=== PATIENT | male | born 1950 | race Caucasian/White ===

== ENCOUNTER 2018-08-09 14:40 | Emergency (ER) | payer MEDICARE, OTHER, SELFPAY ==
[2018-08-09 14:46] VITALS: BP 153/85; PULSE 72; RESP 16; TEMP 35.9; O2SAT 96
--- NOTE | 2018-08-09 15:02 | ED.ANXIETY ---
HPI - Anxiety <GIULIA Javier - Last Filed: 08/09/18 22:09> General Chief Complaint: Anxiety Stated Complaint: states super anxious Time Seen by Provider: 08/09/18 15:02 Source: patient Mode of arrival: ambulatory Limitations: no limitations History of Present Illness HPI narrative: 68-year-old male with history of anxiety and PTSD here for complaint of having symptoms consistent with panic attack earlier today. He states that at 1:00 this afternoon he started feeling like he was becoming anxious and as time went on he started feeling more anxious and then started having some chest pain. He states that he take a couple of Ativan 1 mg tablets which did not seem to help. He then came to the emergency room. He states that since the timeframe that it started chest pain has resolved. Any feels more relaxed. He denies any shortness of breath. No fevers no chills. He denies any increased stress. He does state that he has been taking his medications as prescribed. MD complaint: anxiety Related Data Home Medications Medication Instructions Recorded Confirmed CPAP: CPAP/PAP Full Face Mask 1 ea MISCELLANEOUS QPM #0 04/14/16 08/09/18 epinephrine 1 dose IM PRN PRN #0 04/14/16 08/09/18 armodafinil 100 mg PO PRN PRN 08/09/18 08/09/18 armodafinil 200 mg PO DAILY 08/09/18 08/09/18 atorvastatin 10 mg PO BEDTIME 08/09/18 08/09/18 buspirone 10 mg PO TID 08/09/18 08/09/18 carboxymethylcellulose sodium 1 drp OPHTHALMIC (EYE) 5XD 08/09/18 08/09/18 cholecalciferol (vitamin D3) 2,000 unit PO DAILY 08/09/18 08/09/18 [Vitamin D3] flunisolide 2 spray INTRANASAL BID 08/09/18 08/09/18 fluoride (sodium) [PreviDent] 1 applic PO BEDTIME 08/09/18 08/09/18 fluoxetine 60 mg PO BEDTIME 08/09/18 08/09/18 lisinopril 10 mg PO DAILY 08/09/18 08/09/18 lorazepam 1 mg PO PRN PRN 08/09/18 08/09/18 meloxicam 15 mg PO DAILY 08/09/18 08/09/18 methocarbamol 750 mg PO BEDTIME 08/09/18 08/09/18 metoprolol tartrate 12.5 mg PO BID 08/09/18 08/09/18 omeprazole 20 mg PO BID 08/09/18 08/09/18 pramipexole 2.5 mg PO BEDTIME 08/09/18 08/09/18 trazodone 50 mg PO BEDTIME 08/09/18 08/09/18 Allergies Allergy/AdvReac Type Severity Reaction Status Date / Time adhesive [ADHESIVE] Allergy Unknown Unverified 04/26/18 16:43 atorvastatin [ATORVASTATIN] Allergy Unknown Unverified 04/26/18 16:43 doxycycline [DOXYCYCLINE] Allergy Unknown Unverified 04/26/18 16:43 gluten [GLUTEN] Allergy Unknown Unverified 04/26/18 16:43 guaifenesin [GUAIFENESIN] Allergy Unknown Unverified 04/26/18 16:43 lactose [LACTOSE] Allergy Unknown Unverified 04/26/18 16:43 methylphenidate Allergy Unknown Unverified 04/26/18 16:43 [METHYLPHENIDATE] Penicillins [PENICILLINS] Allergy Unknown Unverified 04/26/18 16:43 pneumococcal vaccine Allergy Unknown Unverified 04/26/18 16:43 [From PNEUMOVAX 23] prazosin [PRAZOSIN] Allergy Unknown Unverified 04/26/18 16:43 pseudoephedrine Allergy Unknown Unverified 04/26/18 16:43 [PSEUDOEPHEDRINE] soy [SOY] Allergy Unknown Unverified 04/26/18 16:43 venom-honey bee Allergy Unknown Unverified 04/26/18 16:43 [BEE VENOM (HONEY BEE)] CYLERT Allergy Unknown Uncoded 04/26/18 16:43 Lettuce AdvReac Severe Anaphylactic Uncoded 04/26/18 16:43 Shock Review of Systems <GIULIA Javier - Last Filed: 08/09/18 22:09> Constitutional Denies chills, Denies fatigue, Denies fever(s), Denies lethargy and Denies weakness Eyes Denies change in vision, Denies eye discharge, Denies irritation and Denies loss of vision ENT Ears, Nose, Mouth, and Throat: Denies change in voice, Denies neck pain and Denies sore throat Cardiovascular Reports chest pain, Denies dyspnea and Denies dyspnea on exertion Respiratory Denies cough, Denies dyspnea, Denies dyspnea on exertion and Denies wheezing Gastrointestinal Gastrointestinal: Denies abdominal pain, Denies change in bowel habits, Denies diarrhea, Denies nausea and Denies vomiting Genitourinary Denies hematuria, Denies flank pain, Denies urinary incontinence and Denies urinary urgency Musculoskeletal Denies neck pain Integumentary/Breasts Denies pruritus, Denies erythema, Denies rash and Denies wounds Neurologic Denies loss of vision and Denies weakness Psychiatric Reports anxiety Endocrine Denies fatigue and Denies flushing Hematologic/Lymphatic Denies easy bruising Allergic/Immunologic Denies wheezing Exam <GIULIA Javier - Last Filed: 08/09/18 22:09> Initial Vital Signs Initial Vital Signs: Vital Signs Temperature 96.7 F L 08/09/18 14:46 Pulse Rate 72 08/09/18 14:46 Respiratory Rate 16 08/09/18 14:46 Blood Pressure 153/85 H 08/09/18 14:46 Pulse Oximetry 96 08/09/18 14:46 Const General: cooperative and well developed Nutritional Appearance: well nourished Orientation: alert, awake, oriented x3 and not confused [facility] Mouth: oral mucosae normal and moist mucous membranes Throat: posterior oropharynx normal Resp Effort & Inspection: normal respiratory effort, able to speak in complete sentences, no respiratory distress and no use of accessory muscles Auscultation: clear to auscultation bilaterally, no rales, no rhonchi and no wheezes Cardio Rate: regular rate Rhythm: regular rhythm Heart Sounds: no click, no gallops, no murmurs and no rubs Pulses: normal peripheral pulses Skin General: no rashes or lesions noted, No jaundice and No petechiae Neuro General: alert, oriented x3, gait normal and no focal motor deficits Speech: speech normal <Vanessa Christina MD - Last Filed: 08/11/18 15:46> Initial Vital Signs Initial Vital Signs: Vital Signs Temperature 96.7 F L 08/09/18 14:46 Pulse Rate 72 08/09/18 14:46 Respiratory Rate 16 08/09/18 14:46 Blood Pressure 153/85 H 08/09/18 14:46 Pulse Oximetry 96 08/09/18 14:46 Course <GIULIA Javier - Last Filed: 08/09/18 22:09> Orders Ordered: ED Orders 08/09/18 16:32 XR chest 1V Stat 08/09/18 16:45 Complete Blood Count AUTO DIFF Stat Comprehensive Metabolic Panel Stat Troponin & CK Cardiac Panel Stat 08/09/18 16:50 EKG-12 Lead Stat 08/09/18 17:17 CT chest w con Stat 08/09/18 18:49 Troponin I Stat Vital Signs - 8 hr 08/09/18 14:46 08/09/18 17:30 08/09/18 18:49 Temperature 96.7 F L Pulse Rate 72 63 67 Respiratory Rate 16 13 19 Blood Pressure 153/85 H Blood Pressure [Right Arm] 129/65 141/81 H Pulse Oximetry 96 98 97 08/09/18 19:46 Temperature Pulse Rate 73 Respiratory Rate 16 Blood Pressure 120/54 L Blood Pressure [Right Arm] Pulse Oximetry 95 <Vanessa Christina MD - Last Filed: 08/11/18 15:46> Orders Ordered: ED Orders 08/09/18 16:32 XR chest 1V Stat 08/09/18 16:45 Complete Blood Count AUTO DIFF Stat Comprehensive Metabolic Panel Stat Troponin & CK Cardiac Panel Stat 08/09/18 16:50 EKG-12 Lead Stat 08/09/18 17:17 CT chest w con Stat 08/09/18 18:49 Troponin I Stat Vital Signs - 8 hr 08/09/18 14:46 08/09/18 17:30 08/09/18 18:49 Temperature 96.7 F L Pulse Rate 72 63 67 Respiratory Rate 16 13 19 Blood Pressure 153/85 H Blood Pressure [Right Arm] 129/65 141/81 H Pulse Oximetry 96 98 97 08/09/18 19:46 Temperature Pulse Rate 73 Respiratory Rate 16 Blood Pressure 120/54 L Blood Pressure [Right Arm] Pulse Oximetry 95 MDM - Anxiety <GIULIA Javier - Last Filed: 08/09/18 22:09> Lab Data Result diagrams: 08/09/18 16:45 08/09/18 16:45 Lab Results 08/09/18 08/09/18 08/09/18 Range/Units 16:45 16:45 18:49 WBC 4.6 (4.5-11.0) X10^3/uL RBC 4.54 (4.5-5.9) X10^6/uL Hgb 13.9 (13.5-17.5) g/dL Hct 41.8 (41-53) % MCV 91.9 (80-100) fL MCH 30.6 (26-34) PG MCHC 33.3 (30-36) % RDW 13.6 (11.6-14.8) % Plt Count 149 L (150-400) X10^3/uL Neut % (Auto) 60.3 (50-75) % Lymph % (Auto) 25.5 (25-40) % Irion % (Auto) 10.7 (3-14) % Eos % (Auto) 2.6 (2-4) % Baso % (Auto) 0.9 (0-2) % Neut # (Auto) 2800 (4345-9476) /uL Sodium 142 (137-145) mmol/L Potassium 4.3 (3.4-5.1) mmol/L Chloride 102 (98-107) mmol/L Carbon Dioxide 29 (22-32) mmol/L BUN 24 H (9-20) mg/dL Creatinine 0.90 (0.66-1.25) mg/dL Estimated GFR > 60.0 (>60) mL/min BUN/Creatinine Ratio 26.7 H (6-22) Glucose 91 (80-110) mg/dL Calcium 9.1 (8.4-10.2) mg/dL Total Bilirubin 0.2 (0.2-1.3) mg/dL AST 26 (17-59) IU/L ALT 33 (21-72) IU/L Alkaline Phosphatase 86 (38-126) U/L Total Creatine Kinase 136 (55-170) U/L CK-MB (CK-2) 2.61 H (<2.37) ng/mL CK-MB (CK-2) Rel Index 1.9 (1.5-5.0) % Troponin I < 0.012 0.018 (0.01-0.034) ng/mL Total Protein 7.3 (6.3-8.2) g/dL Albumin 4.4 (3.5-5.0) g/dL Globulin 2.9 (1.7-4.1) g/dL Albumin/Globulin Ratio 1.5 (1.0-2.8) Imaging Data Chest x-ray: Radiologist's impression: [address] [id number] XRay Report Signed Patient: Sandeep Hopson MR#: [id number] : 1950 Acct:[id number] Age/Sex: 68 / M Date of Service: 08/09/18 Loc: ED Accession Number: [id number] Procedure: XR chest 1V Ordering Provider: Santos Khalil PROCEDURE: XR CHEST 1V INDICATIONS: Chest pain TECHNIQUE: One view of the chest was acquired. COMPARISON: [facility], CHEST 1 VIEW, 10/27/2017, 9:39. FINDINGS: Surgical changes and devices: None. Lungs and pleura: There appears to be a new density within being superior right paramediastinal soft tissues. No lobar consolidation, effusion, or pneumothorax is evident. Mediastinum: Mediastinal contours appear normal. Heart size is normal. Bones and chest wall: No suspicious bony lesions. Overlying soft tissues appear unremarkable. IMPRESSION: Superior right paramediastinal soft tissue density is new since the prior exam and may represent vascular structures. However, pulmonary nodule/mass is difficult to exclude. A contrast enhanced CT of the chest is recommended for further evaluation. Dictated by: Kt Lynn M.D. on 08/09/2018 at 15:59 Approved by: Kt Lynn M.D. on 08/09/2018 at 16:02 CT scan - chest: Radiologist's impression: [address] [id number] [address] Scan Report Signed Patient: Sandeep Hopson MR#: [id number] : 1950 Acct:[id number] Age/Sex: 68 / M Date of Service: 08/09/18 Loc: ED Accession Number: [id number] Procedure: CT chest w con Ordering Provider: Santos Khalil PROCEDURE: CT CHEST W CON INDICATIONS: Possible mass seen on x-ray to right mediastinum TECHNIQUE: After the administration of intravenous contrast, 5 mm thick sections acquired from the pulmonary apices to the posterior costophrenic angles. 7 mm thick coronal and sagittal MIP reformats were acquired. For radiation dose reduction, the following was used: automated exposure control, adjustment of mA and/or kV according to patient size. COMPARISON: [facility], , CHEST 1 VIEW, 10/28/2014, 18:19. [facility], CHEST 1 VIEW, 01/18/2017, 17:29. [facility], CR, CHEST 1 VIEW, 10/27/2017, 9:39. [facility], , XR CHEST 1V, 08/09/2018, 17:05. FINDINGS: Image quality: Excellent. Lungs and pleura: No acute consolidation. No pulmonary nodule identified. The renographic appearance probably explained by tortuous brachiocephalic vessels. No pleural effusions or pneumothorax. Central and peripheral airways are patent and normal in caliber. Mediastinum: Heart size is normal. No pericardial effusion. No mediastinal or hilar adenopathy by size criteria. Thoracic aorta and central pulmonary arteries are normal in size. Esophagus is normal in caliber. No hiatal hernia. Bones and chest wall: No suspicious bony lesions. No vertebral body compression fractures. No axillary or supraclavicular adenopathy by size criteria. Thyroid gland negative. Abdomen: Left renal cyst incidentally noted IMPRESSION: No acute consolidation. No pulmonary nodule. Radiographic right paramediastinal opacity from prior study dated earlier same day likely accounted for tortuous brachiocephalic vessels Dictated by: Yariel Dubois M.D. on 08/09/2018 at 17:49 Approved by: Yariel Dubois M.D. on 08/09/2018 at 17:55 ECG Data Interpretation: EKG shows normal sinus rhythm with no ST elevation or depression. No ectopy. Ventricular rate is 67. Pr interval of 207. QRS duration 90. QTC of 439. MDM Narrative Medical decision making narrative: Chest x-ray was obtained and showed says it area that was questionable whether a pulmonary nodule or mass was present so CT of the chest was obtained and shows that it was a serpiginous vascularization no acute findings were seen in CT or on chest x-ray. EKG shows sinus rhythm with no ST elevation or depression. CBC and Chem panel were obtained were unremarkable. Cardiac enzymes were obtained and were negative. Patient has been relaxed and no chest pain while in the emergency room. Signs and symptoms present as a anxiety attack. He is encouraged to use his currently prescribed medications as directed. Follow up with primary care provider. Return emergency room for any worsening symptoms. <Vanessa Christina MD - Last Filed: 08/11/18 15:46> Lab Data Lab Results 08/09/18 08/09/18 08/09/18 Range/Units 16:45 16:45 18:49 WBC 4.6 (4.5-11.0) X10^3/uL RBC 4.54 (4.5-5.9) X10^6/uL Hgb 13.9 (13.5-17.5) g/dL Hct 41.8 (41-53) % MCV 91.9 (80-100) fL MCH 30.6 (26-34) PG MCHC 33.3 (30-36) % RDW 13.6 (11.6-14.8) % Plt Count 149 L (150-400) X10^3/uL Neut % (Auto) 60.3 (50-75) % Lymph % (Auto) 25.5 (25-40) % Irion % (Auto) 10.7 (3-14) % Eos % (Auto) 2.6 (2-4) % Baso % (Auto) 0.9 (0-2) % Neut # (Auto) 2800 (0691-0671) /uL Sodium 142 (137-145) mmol/L Potassium 4.3 (3.4-5.1) mmol/L Chloride 102 (98-107) mmol/L Carbon Dioxide 29 (22-32) mmol/L BUN 24 H (9-20) mg/dL Creatinine 0.90 (0.66-1.25) mg/dL Estimated GFR > 60.0 (>60) mL/min BUN/Creatinine Ratio 26.7 H (6-22) Glucose 91 (80-110) mg/dL Calcium 9.1 (8.4-10.2) mg/dL Total Bilirubin 0.2 (0.2-1.3) mg/dL AST 26 (17-59) IU/L ALT 33 (21-72) IU/L Alkaline Phosphatase 86 (38-126) U/L Total Creatine Kinase 136 (55-170) U/L CK-MB (CK-2) 2.61 H (<2.37) ng/mL CK-MB (CK-2) Rel Index 1.9 (1.5-5.0) % Troponin I < 0.012 0.018 (0.01-0.034) ng/mL Total Protein 7.3 (6.3-8.2) g/dL Albumin 4.4 (3.5-5.0) g/dL Globulin 2.9 (1.7-4.1) g/dL Albumin/Globulin Ratio 1.5 (1.0-2.8) Discharge Plan Departure Patient Disposition: Home Clinical Impression: Anxiety Discharge Date/Time: 08/09/18 19:47 Interventions: ED Discharge Assessment Last Done: 08/09/18 19:46 Instructions: DI for Anxiety -- Adult Activity Restrictions/Additional Instructions: Laboratory results and imaging today were unremarkable. EKG was normal. Signs and symptoms presents as anxiety attack. Use currently prescribed medications as directed. Use relaxation techniques to help with symptoms. Follow up with primary care provider. For any worsening symptoms return to the emergency room. Prescriptions: No Action epinephrine 0.3 MG/0.3 ML auto-injector 1 dose IM PRN PRN (Reason: Allergic Reaction) Qty: 0 RF: 0 CPAP: CPAP/PAP Full Face Mask 1 ea miscellaneous QPM Qty: 0 RF: 0 atorvastatin 10 mg tablet 10 mg PO BEDTIME RF: 0 meloxicam 15 mg tablet 15 mg PO DAILY RF: 0 methocarbamol 750 mg tablet 750 mg PO BEDTIME RF: 0 lisinopril 10 mg tablet 10 mg PO DAILY RF: 0 omeprazole 20 mg capsule,delayed release(DR/EC) 20 mg PO BID RF: 0 lorazepam 1 mg Tablet 1 mg PO PRN PRN (Reason: Anxiety) RF: 0 pramipexole 2.25 mg Tablet Extended Release 24 Hr 2.5 mg PO BEDTIME RF: 0 buspirone 10 mg Tablet 10 mg PO TID RF: 0 armodafinil 200 mg tablet 200 mg PO DAILY RF: 0 armodafinil 200 mg Tablet 100 mg PO PRN PRN (Reason: naroclepsy/cataplexy) RF: 0 flunisolide 25 mcg (0.025 %) [place],Non-Aerosol 2 spray INTRANASAL BID RF: 0 carboxymethylcellulose sodium 0.5 % [place] 1 drp ophthalmic (eye) 5XD RF: 0 trazodone 50 mg Tablet 50 mg PO BEDTIME RF: 0 fluoride (sodium) [PreviDent] 1.1 % Gel 1 applic PO BEDTIME RF: 0 metoprolol tartrate 25 mg Tablet 12.5 mg PO BID RF: 0 cholecalciferol (vitamin D3) [Vitamin D3] 2,000 unit Capsule 2,000 unit PO DAILY RF: 0 fluoxetine 60 mg Tablet 60 mg PO BEDTIME RF: 0 Referrals: Sandeep Coronado MD [Primary Care Provider] -
--- NOTE | 2018-08-09 15:46 | PC.NURSE ---
Pt states filling out paperwork for [facility], when he states starting shaking and feeling chest pressure, center chest. Had taken 2 doses of 1mg ativan about an hour apart. States no relief of pressure at this time.
--- NOTE | 2018-08-09 16:32 | DI.RAD.S_ITS ---
PROCEDURE: XR CHEST 1V INDICATIONS: Chest pain TECHNIQUE: One view of the chest was acquired. COMPARISON: [facility], , CHEST 1 VIEW, 10/27/2017, 9:39. FINDINGS: Surgical changes and devices: None. Lungs and pleura: There appears to be a new density within being superior right paramediastinal soft tissues. No lobar consolidation, effusion, or pneumothorax is evident. Mediastinum: Mediastinal contours appear normal. Heart size is normal. Bones and chest wall: No suspicious bony lesions. Overlying soft tissues appear unremarkable. IMPRESSION: Superior right paramediastinal soft tissue density is new since the prior exam and may represent vascular structures. However, pulmonary nodule/mass is difficult to exclude. A contrast enhanced CT of the chest is recommended for further evaluation. Dictated by: Kt Lynn M.D. on 08/09/2018 at 15:59 Approved by: Kt Lynn M.D. on 08/09/2018 at 16:02
[2018-08-09 16:54] LABS: Add Manual Diff / Slide Review NO; Basophils Percent Auto 0.9 % (0-2); Eosinophils Percent Auto 2.6 % (2-4); Hematocrit 41.8 % (41-53); Hemoglobin 13.9 g/dL (13.5-17.5); Lymphocytes Percent Auto 25.5 % (25-40); Mean Corpuscular HGB Conc 33.3 % (30-36); Mean Corpuscular Hemoglobin 30.6 PG (26-34); Mean Corpuscular Volume 91.9 fL (80-100); Monocytes Percent Auto 10.7 % (3-14); Neutrophils Absolute Auto 2800 /uL (1500-7000); Neutrophils Percent Auto 60.3 % (50-75); Platelet Count 149 X10^3/uL (150-400); Red Blood Cell Count 4.54 X10^6/uL (4.5-5.9); Red Cell Distribution Width 13.6 % (11.6-14.8); White Blood Cell Count 4.6 X10^3/uL (4.5-11.0)
[2018-08-09 17:10] LABS: Alanine Aminotransferase 33 IU/L (21-72); Albumin 4.4 g/dL (3.5-5.0); Albumin Globulin Ratio 1.5 (1.0-2.8); Alkaline Phosphatase 86 U/L (38-126); Aspartate Aminotransferase 26 IU/L (17-59); BUN Creatinine Ratio 26.7 (6-22); Bilirubin Total 0.2 mg/dL (0.2-1.3); Blood Urea Nitrogen 24 mg/dL (9-20); Calcium 9.1 mg/dL (8.4-10.2); Carbon Dioxide 29 mmol/L (22-32); Chloride 102 mmol/L (98-107); Creatine Kinase 136 U/L (55-170); Estimated Glomerular Filt Rate > 60.0 mL/min (>60); Globulin 2.9 g/dL (1.7-4.1); Glucose 91 mg/dL (80-110); HEMOLYSIS < 15 (0-50); Potassium 4.3 mmol/L (3.4-5.1); Sodium 142 mmol/L (137-145); Total Protein 7.3 g/dL (6.3-8.2)
--- NOTE | 2018-08-09 17:17 | DI.CT.S_ITS ---
PROCEDURE: CT CHEST W CON INDICATIONS: Possible mass seen on x-ray to right mediastinum TECHNIQUE: After the administration of intravenous contrast, 5 mm thick sections acquired from the pulmonary apices to the posterior costophrenic angles. 7 mm thick coronal and sagittal MIP reformats were acquired. For radiation dose reduction, the following was used: automated exposure control, adjustment of mA and/or kV according to patient size. COMPARISON: [facility], , CHEST 1 VIEW, 10/28/2014, 18:19. [facility], CHEST 1 VIEW, 01/18/2017, 17:29. [facility], , CHEST 1 VIEW, 10/27/2017, 9:39. [facility], , XR CHEST 1V, 08/09/2018, 17:05. FINDINGS: Image quality: Excellent. Lungs and pleura: No acute consolidation. No pulmonary nodule identified. The renographic appearance probably explained by tortuous brachiocephalic vessels. No pleural effusions or pneumothorax. Central and peripheral airways are patent and normal in caliber. Mediastinum: Heart size is normal. No pericardial effusion. No mediastinal or hilar adenopathy by size criteria. Thoracic aorta and central pulmonary arteries are normal in size. Esophagus is normal in caliber. No hiatal hernia. Bones and chest wall: No suspicious bony lesions. No vertebral body compression fractures. No axillary or supraclavicular adenopathy by size criteria. Thyroid gland negative. Abdomen: Left renal cyst incidentally noted IMPRESSION: No acute consolidation. No pulmonary nodule. Radiographic right paramediastinal opacity from prior study dated earlier same day likely accounted for tortuous brachiocephalic vessels Dictated by: Yariel Dubois M.D. on 08/09/2018 at 17:49 Approved by: Yariel Dubois M.D. on 08/09/2018 at 17:55
[2018-08-09 17:24] LABS: Troponin I < 0.012 ng/mL (0.01-0.034)
[2018-08-09 17:30] VITALS: BP 129/65; PULSE 63; RESP 13; O2SAT 98
[2018-08-09 18:07] LABS: CKMB % Relative Index 1.9 % (1.5-5.0); Creatine Kinase MB 2.61 ng/mL (<2.37)
[2018-08-09 18:49] VITALS: BP 141/81; PULSE 67; RESP 19; O2SAT 97
--- NOTE | 2018-08-09 19:38 | ED_ITS ---
HPI - Anxiety <GIULIA Javier - Last Filed: 08/09/18 22:09> General Chief Complaint: Anxiety Stated Complaint: states super anxious Time Seen by Provider: 08/09/18 15:02 Source: patient Mode of arrival: ambulatory Limitations: no limitations History of Present Illness HPI narrative: 68-year-old male with history of anxiety and PTSD here for complaint of having symptoms consistent with panic attack earlier today. He states that at 1:00 this afternoon he started feeling like he was becoming anxious and as time went on he started feeling more anxious and then started having some chest pain. He states that he take a couple of Ativan 1 mg tablets which did not seem to help. He then came to the emergency room. He states that since the timeframe that it started chest pain has resolved. Any feels more relaxed. He denies any shortness of breath. No fevers no chills. He denies any increased stress. He does state that he has been taking his medications as prescribed. MD complaint: anxiety Related Data Home Medications Medication Instructions Recorded Confirmed CPAP: CPAP/PAP Full Face Mask 1 ea MISCELLANEOUS QPM #0 04/14/16 08/09/18 epinephrine 1 dose IM PRN PRN #0 04/14/16 08/09/18 armodafinil 100 mg PO PRN PRN 08/09/18 08/09/18 armodafinil 200 mg PO DAILY 08/09/18 08/09/18 atorvastatin 10 mg PO BEDTIME 08/09/18 08/09/18 buspirone 10 mg PO TID 08/09/18 08/09/18 carboxymethylcellulose sodium 1 drp OPHTHALMIC (EYE) 5XD 08/09/18 08/09/18 cholecalciferol (vitamin D3) 2,000 unit PO DAILY 08/09/18 08/09/18 [Vitamin D3] flunisolide 2 spray INTRANASAL BID 08/09/18 08/09/18 fluoride (sodium) [PreviDent] 1 applic PO BEDTIME 08/09/18 08/09/18 fluoxetine 60 mg PO BEDTIME 08/09/18 08/09/18 lisinopril 10 mg PO DAILY 08/09/18 08/09/18 lorazepam 1 mg PO PRN PRN 08/09/18 08/09/18 meloxicam 15 mg PO DAILY 08/09/18 08/09/18 methocarbamol 750 mg PO BEDTIME 08/09/18 08/09/18 metoprolol tartrate 12.5 mg PO BID 08/09/18 08/09/18 omeprazole 20 mg PO BID 08/09/18 08/09/18 pramipexole 2.5 mg PO BEDTIME 08/09/18 08/09/18 trazodone 50 mg PO BEDTIME 08/09/18 08/09/18 Allergies Allergy/AdvReac Type Severity Reaction Status Date / Time adhesive [ADHESIVE] Allergy Unknown Unverified 04/26/18 16:43 atorvastatin [ATORVASTATIN] Allergy Unknown Unverified 04/26/18 16:43 doxycycline [DOXYCYCLINE] Allergy Unknown Unverified 04/26/18 16:43 gluten [GLUTEN] Allergy Unknown Unverified 04/26/18 16:43 guaifenesin [GUAIFENESIN] Allergy Unknown Unverified 04/26/18 16:43 lactose [LACTOSE] Allergy Unknown Unverified 04/26/18 16:43 methylphenidate Allergy Unknown Unverified 04/26/18 16:43 [METHYLPHENIDATE] Penicillins [PENICILLINS] Allergy Unknown Unverified 04/26/18 16:43 pneumococcal vaccine Allergy Unknown Unverified 04/26/18 16:43 [From PNEUMOVAX 23] prazosin [PRAZOSIN] Allergy Unknown Unverified 04/26/18 16:43 pseudoephedrine Allergy Unknown Unverified 04/26/18 16:43 [PSEUDOEPHEDRINE] soy [SOY] Allergy Unknown Unverified 04/26/18 16:43 venom-honey bee Allergy Unknown Unverified 04/26/18 16:43 [BEE VENOM (HONEY BEE)] CYLERT Allergy Unknown Uncoded 04/26/18 16:43 Lettuce AdvReac Severe Anaphylactic Uncoded 04/26/18 16:43 Shock Review of Systems <GIULIA Javier - Last Filed: 08/09/18 22:09> Constitutional Denies chills, Denies fatigue, Denies fever(s), Denies lethargy and Denies weakness Eyes Denies change in vision, Denies eye discharge, Denies irritation and Denies loss of vision ENT Ears, Nose, Mouth, and Throat: Denies change in voice, Denies neck pain and Denies sore throat Cardiovascular Reports chest pain, Denies dyspnea and Denies dyspnea on exertion Respiratory Denies cough, Denies dyspnea, Denies dyspnea on exertion and Denies wheezing Gastrointestinal Gastrointestinal: Denies abdominal pain, Denies change in bowel habits, Denies diarrhea, Denies nausea and Denies vomiting Genitourinary Denies hematuria, Denies flank pain, Denies urinary incontinence and Denies urinary urgency Musculoskeletal Denies neck pain Integumentary/Breasts Denies pruritus, Denies erythema, Denies rash and Denies wounds Neurologic Denies loss of vision and Denies weakness Psychiatric Reports anxiety Endocrine Denies fatigue and Denies flushing Hematologic/Lymphatic Denies easy bruising Allergic/Immunologic Denies wheezing Exam <GIULIA Javier - Last Filed: 08/09/18 22:09> Initial Vital Signs Initial Vital Signs: Vital Signs Temperature 96.7 F L 08/09/18 14:46 Pulse Rate 72 08/09/18 14:46 Respiratory Rate 16 08/09/18 14:46 Blood Pressure 153/85 H 08/09/18 14:46 Pulse Oximetry 96 08/09/18 14:46 Const General: cooperative and well developed Nutritional Appearance: well nourished Orientation: alert, awake, oriented x3 and not confused [facility] Mouth: oral mucosae normal and moist mucous membranes Throat: posterior oropharynx normal Resp Effort & Inspection: normal respiratory effort, able to speak in complete sentences, no respiratory distress and no use of accessory muscles Auscultation: clear to auscultation bilaterally, no rales, no rhonchi and no wheezes Cardio Rate: regular rate Rhythm: regular rhythm Heart Sounds: no click, no gallops, no murmurs and no rubs Pulses: normal peripheral pulses Skin General: no rashes or lesions noted, No jaundice and No petechiae Neuro General: alert, oriented x3, gait normal and no focal motor deficits Speech: speech normal <Vanessa Christina MD - Last Filed: 08/11/18 15:46> Initial Vital Signs Initial Vital Signs: Vital Signs Temperature 96.7 F L 08/09/18 14:46 Pulse Rate 72 08/09/18 14:46 Respiratory Rate 16 08/09/18 14:46 Blood Pressure 153/85 H 08/09/18 14:46 Pulse Oximetry 96 08/09/18 14:46 Course <GIULIA Javier - Last Filed: 08/09/18 22:09> Orders Ordered: ED Orders 08/09/18 16:32 XR chest 1V Stat 08/09/18 16:45 Complete Blood Count AUTO DIFF Stat Comprehensive Metabolic Panel Stat Troponin & CK Cardiac Panel Stat 08/09/18 16:50 EKG-12 Lead Stat 08/09/18 17:17 CT chest w con Stat 08/09/18 18:49 Troponin I Stat Vital Signs - 8 hr 08/09/18 14:46 08/09/18 17:30 08/09/18 18:49 Temperature 96.7 F L Pulse Rate 72 63 67 Respiratory Rate 16 13 19 Blood Pressure 153/85 H Blood Pressure [Right Arm] 129/65 141/81 H Pulse Oximetry 96 98 97 08/09/18 19:46 Temperature Pulse Rate 73 Respiratory Rate 16 Blood Pressure 120/54 L Blood Pressure [Right Arm] Pulse Oximetry 95 <Vanessa Christina MD - Last Filed: 08/11/18 15:46> Orders Ordered: ED Orders 08/09/18 16:32 XR chest 1V Stat 08/09/18 16:45 Complete Blood Count AUTO DIFF Stat Comprehensive Metabolic Panel Stat Troponin & CK Cardiac Panel Stat 08/09/18 16:50 EKG-12 Lead Stat 08/09/18 17:17 CT chest w con Stat 08/09/18 18:49 Troponin I Stat Vital Signs - 8 hr 08/09/18 14:46 08/09/18 17:30 08/09/18 18:49 Temperature 96.7 F L Pulse Rate 72 63 67 Respiratory Rate 16 13 19 Blood Pressure 153/85 H Blood Pressure [Right Arm] 129/65 141/81 H Pulse Oximetry 96 98 97 08/09/18 19:46 Temperature Pulse Rate 73 Respiratory Rate 16 Blood Pressure 120/54 L Blood Pressure [Right Arm] Pulse Oximetry 95 MDM - Anxiety <GIULIA Javier - Last Filed: 08/09/18 22:09> Lab Data Result diagrams: 08/09/18 16:45 08/09/18 16:45 Lab Results 08/09/18 08/09/18 08/09/18 Range/Units 16:45 16:45 18:49 WBC 4.6 (4.5-11.0) X10^3/uL RBC 4.54 (4.5-5.9) X10^6/uL Hgb 13.9 (13.5-17.5) g/dL Hct 41.8 (41-53) % MCV 91.9 (80-100) fL MCH 30.6 (26-34) PG MCHC 33.3 (30-36) % RDW 13.6 (11.6-14.8) % Plt Count 149 L (150-400) X10^3/uL Neut % (Auto) 60.3 (50-75) % Lymph % (Auto) 25.5 (25-40) % [place] % (Auto) 10.7 (3-14) % Eos % (Auto) 2.6 (2-4) % Baso % (Auto) 0.9 (0-2) % Neut # (Auto) 2800 (9411-4350) /uL Sodium 142 (137-145) mmol/L Potassium 4.3 (3.4-5.1) mmol/L Chloride 102 (98-107) mmol/L Carbon Dioxide 29 (22-32) mmol/L BUN 24 H (9-20) mg/dL Creatinine 0.90 (0.66-1.25) mg/dL Estimated GFR > 60.0 (>60) mL/min BUN/Creatinine Ratio 26.7 H (6-22) Glucose 91 (80-110) mg/dL Calcium 9.1 (8.4-10.2) mg/dL Total Bilirubin 0.2 (0.2-1.3) mg/dL AST 26 (17-59) IU/L ALT 33 (21-72) IU/L Alkaline Phosphatase 86 (38-126) U/L Total Creatine Kinase 136 (55-170) U/L CK-MB (CK-2) 2.61 H (<2.37) ng/mL CK-MB (CK-2) Rel Index 1.9 (1.5-5.0) % Troponin I < 0.012 0.018 (0.01-0.034) ng/mL Total Protein 7.3 (6.3-8.2) g/dL Albumin 4.4 (3.5-5.0) g/dL Globulin 2.9 (1.7-4.1) g/dL Albumin/Globulin Ratio 1.5 (1.0-2.8) Imaging Data Chest x-ray: Radiologist's impression: [address] [address] XRay Report Signed Patient: Sandeep Hopson MR#: [id number] : 1950 Acct:[id number] Age/Sex: 68 / M Date of Service: 08/09/18 Loc: ED Accession Number: [id number] Procedure: XR chest 1V Ordering Provider: Santos Khalil PROCEDURE: XR CHEST 1V INDICATIONS: Chest pain TECHNIQUE: One view of the chest was acquired. COMPARISON: [facility], CHEST 1 VIEW, 10/27/2017, 9:39. FINDINGS: Surgical changes and devices: None. Lungs and pleura: There appears to be a new density within being superior right paramediastinal soft tissues. No lobar consolidation, effusion, or pneumothorax is evident. Mediastinum: Mediastinal contours appear normal. Heart size is normal. Bones and chest wall: No suspicious bony lesions. Overlying soft tissues appear unremarkable. IMPRESSION: Superior right paramediastinal soft tissue density is new since the prior exam and may represent vascular structures. However, pulmonary nodule/mass is difficult to exclude. A contrast enhanced CT of the chest is recommended for further evaluation. Dictated by: Kt Lynn M.D. on 08/09/2018 at 15:59 Approved by: Kt Lynn M.D. on 08/09/2018 at 16:02 CT scan - chest: Radiologist's impression: [address] [address] [address] Scan Report Signed Patient: Sandeep Hopson MR#: [id number] : 1950 Acct:[id number] Age/Sex: 68 / M Date of Service: 08/09/18 Loc: ED Accession Number: [id number] Procedure: CT chest w con Ordering Provider: Santos Khalil PROCEDURE: CT CHEST W CON INDICATIONS: Possible mass seen on x-ray to right mediastinum TECHNIQUE: After the administration of intravenous contrast, 5 mm thick sections acquired from the pulmonary apices to the posterior costophrenic angles. 7 mm thick coronal and sagittal MIP reformats were acquired. For radiation dose reduction, the following was used: automated exposure control, adjustment of mA and/or kV according to patient size. COMPARISON: [facility], , CHEST 1 VIEW, 10/28/2014, 18:[address]. [facility], CHEST 1 VIEW, 01/18/2017, 17:29. [facility], CR, CHEST 1 VIEW, 10/27/2017, 9 :39. [facility], , XR CHEST 1V, 08/09/2018, 17:05. FINDINGS: Image quality: Excellent. Lungs and pleura: No acute consolidation. No pulmonary nodule identified. The renographic appearance probably explained by tortuous brachiocephalic vessels. No pleural effusions or pneumothorax. Central and peripheral airways are patent and normal in caliber. Mediastinum: Heart size is normal. No pericardial effusion. No mediastinal or hilar adenopathy by size criteria. Thoracic aorta and central pulmonary arteries are normal in size. Esophagus is normal in caliber. No hiatal hernia. Bones and chest wall: No suspicious bony lesions. No vertebral body compression fractures. No axillary or supraclavicular adenopathy by size criteria. Thyroid gland negative. Abdomen: Left renal cyst incidentally noted IMPRESSION: No acute consolidation. No pulmonary nodule. Radiographic right paramediastinal opacity from prior study dated earlier same day likely accounted for tortuous brachiocephalic vessels Dictated by: Yariel Dubois M.D. on 08/09/2018 at 17:49 Approved by: Yariel Dubois M.D. on 08/09/2018 at 17:55 ECG Data Interpretation: EKG shows normal sinus rhythm with no ST elevation or depression. No ectopy. Ventricular rate is 67. Pr interval of 207. QRS duration 90. QTC of 439. MDM Narrative Medical decision making narrative: Chest x-ray was obtained and showed says it area that was questionable whether a pulmonary nodule or mass was present so CT of the chest was obtained and shows that it was a serpiginous vascularization no acute findings were seen in CT or on chest x-ray. EKG shows sinus rhythm with no ST elevation or depression. CBC and Chem panel were obtained were unremarkable. Cardiac enzymes were obtained and were negative. Patient has been relaxed and no chest pain while in the emergency room. Signs and symptoms present as a anxiety attack. He is encouraged to use his currently prescribed medications as directed. Follow up with primary care provider. Return emergency room for any worsening symptoms. <Vanessa Christina MD - Last Filed: 08/11/18 15:46> Lab Data Lab Results 08/09/18 08/09/18 08/09/18 Range/Units 16:45 16:45 18:49 WBC 4.6 (4.5-11.0) X10^3/uL RBC 4.54 (4.5-5.9) X10^6/uL Hgb 13.9 (13.5-17.5) g/dL Hct 41.8 (41-53) % MCV 91.9 (80-100) fL MCH 30.6 (26-34) PG MCHC 33.3 (30-36) % RDW 13.6 (11.6-14.8) % Plt Count 149 L (150-400) X10^3/uL Neut % (Auto) 60.3 (50-75) % Lymph % (Auto) 25.5 (25-40) % [place] % (Auto) 10.7 (3-14) % Eos % (Auto) 2.6 (2-4) % Baso % (Auto) 0.9 (0-2) % Neut # (Auto) 2800 (7587-4589) /uL Sodium 142 (137-145) mmol/L Potassium 4.3 (3.4-5.1) mmol/L Chloride 102 (98-107) mmol/L Carbon Dioxide 29 (22-32) mmol/L BUN 24 H (9-20) mg/dL Creatinine 0.90 (0.66-1.25) mg/dL Estimated GFR > 60.0 (>60) mL/min BUN/Creatinine Ratio 26.7 H (6-22) Glucose 91 (80-110) mg/dL Calcium 9.1 (8.4-10.2) mg/dL Total Bilirubin 0.2 (0.2-1.3) mg/dL AST 26 (17-59) IU/L ALT 33 (21-72) IU/L Alkaline Phosphatase 86 (38-126) U/L Total Creatine Kinase 136 (55-170) U/L CK-MB (CK-2) 2.61 H (<2.37) ng/mL CK-MB (CK-2) Rel Index 1.9 (1.5-5.0) % Troponin I < 0.012 0.018 (0.01-0.034) ng/mL Total Protein 7.3 (6.3-8.2) g/dL Albumin 4.4 (3.5-5.0) g/dL Globulin 2.9 (1.7-4.1) g/dL Albumin/Globulin Ratio 1.5 (1.0-2.8) Discharge Plan Departure Patient Disposition: Home Clinical Impression: Anxiety Discharge Date/Time: 08/09/18 19:47 Interventions: ED Discharge Assessment Last Done: 08/09/18 19:46 Instructions: DI for Anxiety -- Adult Activity Restrictions/Additional Instructions: Laboratory results and imaging today were unremarkable. EKG was normal. Signs and symptoms presents as anxiety attack. Use currently prescribed medications as directed. Use relaxation techniques to help with symptoms. Follow up with primary care provider. For any worsening symptoms return to the emergency room. Prescriptions: No Action epinephrine 0.3 MG/0.3 ML auto-injector 1 dose IM PRN PRN (Reason: Allergic Reaction) Qty: 0 RF: 0 CPAP: CPAP/PAP Full Face Mask 1 ea miscellaneous QPM Qty: 0 RF: 0 atorvastatin 10 mg tablet 10 mg PO BEDTIME RF: 0 meloxicam 15 mg tablet 15 mg PO DAILY RF: 0 methocarbamol 750 mg tablet 750 mg PO BEDTIME RF: 0 lisinopril 10 mg tablet 10 mg PO DAILY RF: 0 omeprazole 20 mg capsule,delayed release(DR/EC) 20 mg PO BID RF: 0 lorazepam 1 mg Tablet 1 mg PO PRN PRN (Reason: Anxiety) RF: 0 pramipexole 2.25 mg Tablet Extended Release 24 Hr 2.5 mg PO BEDTIME RF: 0 buspirone 10 mg Tablet 10 mg PO TID RF: 0 armodafinil 200 mg tablet 200 mg PO DAILY RF: 0 armodafinil 200 mg Tablet 100 mg PO PRN PRN (Reason: naroclepsy/cataplexy) RF: 0 flunisolide 25 mcg (0.025 %) [place],Non-Aerosol 2 spray INTRANASAL BID RF: 0 carboxymethylcellulose sodium 0.5 % [place] 1 drp ophthalmic (eye) 5XD RF: 0 trazodone 50 mg Tablet 50 mg PO BEDTIME RF: 0 fluoride (sodium) [PreviDent] 1.1 % Gel 1 applic PO BEDTIME RF: 0 metoprolol tartrate 25 mg Tablet 12.5 mg PO BID RF: 0 cholecalciferol (vitamin D3) [Vitamin D3] 2,000 unit Capsule 2,000 unit PO DAILY RF: 0 fluoxetine 60 mg Tablet 60 mg PO BEDTIME RF: 0 Referrals: Sandeep Coronado MD [Primary Care Provider] -
[2018-08-09 19:39] LABS: Troponin I 0.018 ng/mL (0.01-0.034)
[2018-08-09 19:46] VITALS: BP 120/54; PULSE 73; RESP 16; O2SAT 95
== END 2018-08-09 19:47 | disposition home or self-care (01) ==
PROVIDERS: Emergency Provider Nurse Practitioner Family; PCP Family Medicine
DX: F41.9 Anxiety disorder, unspecified (principal)
CPT/HCPCS: 36415; 36591; 71045; 71260; 80053; 82550; 82553; 84484; 85025; 93005; 99282; 99285; Q9967

== ENCOUNTER → 2018-08-11 16:38 | Outpatient (CLI) | payer MEDICARE, OTHER, SELFPAY ==
--- NOTE | 2018-08-11 16:41 | DI.RAD.S_ITS ---
PROCEDURE: XR HIP W PEL IF DONE RT 2V INDICATIONS: RIGHT HIP PAIN TECHNIQUE: AP pelvis with lateral view(s) of the right hip(s). COMPARISON: None. FINDINGS: Bones: No fractures or dislocations. Pelvic ring appears intact. No suspicious bony lesions. Degenerative disc disease in the lower lumbar spine. Soft tissues: The visualized bowel gas pattern is normal. No suspicious soft tissue calcifications. IMPRESSION: No fracture or dislocation. If clinical symptoms persist or clinical suspicion for pathology is high, a repeat examination in 7-10 days, or advanced imaging such as CT or MRI is suggested for further evaluation. Dictated by: Chidi Tomas M.D. on 08/11/2018 at 18:23 Approved by: Chidi Tomas M.D. on 08/11/2018 at 18:25
== END ==
PROVIDERS: PCP Family Medicine; Visit Provider Family Medicine
DX: M25.551 Pain in right hip (principal); M51.36 Other intervertebral disc degeneration, lumbar region
CPT/HCPCS: 73502

== ENCOUNTER → 2018-12-28 11:14 | Outpatient (CLI) | payer MEDICARE, OTHER, SELFPAY ==
--- NOTE | 2018-12-28 11:17 | DI.RAD.S_ITS ---
PROCEDURE: XR LUMBAR SPINE MIN 4V INDICATIONS: back and hip pain TECHNIQUE: 5 views of the lumbar spine were acquired. COMPARISON: [facility], , L-SPINE 2-3 VIEWS, 05/10/2017, 18:06. FINDINGS: Bones: Partially visualized levocurvature of the thoracolumbar spine. This has progressed since the prior study. No fracture or focal osseous destruction. Multilevel degenerative endplate sclerosis and spurring. Diffuse facet arthropathy. Moderate L5-S1 disc space narrowing. There is [id number] L3-L4 disc space narrowing. There is mild to moderate narrowing of the remaining lumbar disc spaces. Overall, no interval change since 05/10/17. Mild bilateral hip degeneration. Soft tissues: Overlying bowel gas pattern is normal. No suspicious soft tissue calcifications. Oblique images: No pars defects. IMPRESSION: Interval progression of partially visualized thoracolumbar levoscoliosis. Multilevel spondylosis and facet arthropathy as detailed above. Dictated by: Yariel Dubois M.D. on 12/28/2018 at 14:03 Approved by: Yariel Dubois M.D. on 12/28/2018 at 14:06
== END ==
PROVIDERS: PCP Family Medicine; Visit Provider Physical Medicine & Rehabilitation
DX: S39.012A Strain of muscle, fascia and tendon of lower back, initial encounter (principal); M25.559 Pain in unspecified hip; M54.9 Dorsalgia, unspecified; M16.0 Bilateral primary osteoarthritis of hip; M47.816 Spondylosis without myelopathy or radiculopathy, lumbar region; M48.07 Spinal stenosis, lumbosacral region; M48.061 Spinal stenosis, lumbar region without neurogenic claudication; M54.16 Radiculopathy, lumbar region; M47.27 Other spondylosis with radiculopathy, lumbosacral region; G89.4 Chronic pain syndrome; F43.10 Post-traumatic stress disorder, unspecified
CPT/HCPCS: 72110; 99215

== ENCOUNTER → 2019-01-01 09:02 | Outpatient (CLI) | payer MEDICARE, OTHER, SELFPAY ==
--- NOTE | 2019-01-01 09:05 | DI.MRI.S_ITS ---
PROCEDURE: MR LUMBAR SPINE WO CON INDICATIONS: Lumbar radiculopathy. Spondylolysis of lumbosacral spine with radiculopathy. TECHNIQUE: Noncontrast sagittal T1 spin echo and T2 fast echo, sagittal STIR, axial T1 and T2 fast spin echo through the lumbar spine. In cases with scoliosis, additional coronal T2 fast spin echo may be performed. COMPARISON: [facility], CT, KIDNEY/ URETER/BLADDER, 07/09/2014, 12:03. [facility], MR, L-SPINE W&WO CONTRAST, 08/11/2012, 18:12. [facility], CR, XR LUMBAR SPINE MIN 4V, 12/28/2018, 11:26. [facility], RG, XR L-SPINE 4-6V, 08/20/2004, 8:33. FINDINGS: Image quality: Excellent. Alignment and Curvature: Minimal retrolisthesis can be seen at L1-L2, L2-L3, L3-L4, and L4-L5. There is minimal anterolisthesis at L5-S1. Bone Marrow: Marrow is of normal overall signal. No acute vertebral body compression fractures. Spinal Cord: Conus medullaris terminates at the L1 level. Visualized cord demonstrates normal signal and size. Paraspinous Soft Tissues: No paravertebral masses. A simple appearing left renal cyst is seen superiorly measuring 2.2 cm. T12-L1: There is a focal disc protrusion involving the left neural foramen, as on series 5 image 5. There is moderate left-sided and no right-sided neural foraminal narrowing seen. No central canal narrowing is seen. These imaging findings have progressed compared to the prior study. L1-L2: Moderate loss of disc height is seen. Loss of disc signal is seen. Moderate generalized disc bulge is seen. Mild facet joint hypertrophy is seen. There is at least moderate bilateral neural foraminal narrowing seen, left worse than right. Moderate central canal narrowing is seen. These imaging findings have progressed compared to the prior study. L2-L3: The disc height is well-preserved. Loss of disc signal is seen at this level. Mild to moderate disc bulge is seen, which is eccentric to the left. There is moderate left-sided and mild to moderate right-sided neural foraminal narrowing seen. Coqt-yc-nvefmyxx central canal narrowing is seen. These imaging findings have progressed compared to the prior study. L3-L4: Moderate loss of disc height is seen. Loss of disc signal is seen. Moderate generalized disc bulge is seen. Mild facet joint hypertrophy is seen. There is moderate to severe left-sided and moderate right-sided neural foraminal narrowing seen. Moderate central canal narrowing is seen. These degenerative changes are more prominent than in 2012. L4-L5: The disc height is well-preserved. Loss of disc signal is seen at this level. Kcop-td-rhbuhniq disc bulge is seen. Ntey-sx-diphrtxu facet hypertrophy is seen. There is mild to moderate bilateral neural foraminal narrowing seen. Moderate central canal narrowing is seen. When comparison is made with the prior examination, these findings are similar. L5-S1: Moderate loss of disc height is seen. Loss of disc signal is seen. Mild disc bulge is seen, which is eccentric to the right. Moderate facet joint hypertrophy is seen. Moderate bilateral neural foraminal narrowing is seen. Tzhs-ji-xtqoovci central canal narrowing is seen. These imaging findings have progressed compared to the prior study. IMPRESSION: Multiple levels of lumbar spine degenerative change are seen, which have progressed compared to the 2012 MRI. Dictated by: Fuad Elizabeth M.D. on 01/01/2019 at 10:17 Approved by: Fuad Elizabeth M.D. on 01/01/2019 at 10:34
== END ==
PROVIDERS: PCP Family Medicine; Visit Provider Physical Medicine & Rehabilitation
DX: M47.27 Other spondylosis with radiculopathy, lumbosacral region (principal); M47.26 Other spondylosis with radiculopathy, lumbar region
CPT/HCPCS: 72148

== ENCOUNTER 2019-02-20 10:22 | Outpatient (CLI) | payer MEDICARE, OTHER, SELFPAY ==
[2019-02-20] VITALS (8 sets, daily range): BP systolic 101–149; BP diastolic 43–96; PULSE 59–66; RESP 16–18; TEMP 36.5; O2SAT 95–98
--- NOTE | 2019-02-20 10:23 | DI.RAD.S_ITS ---
PROCEDURE: PAIN L/SI FACET INJ/BLK 1STL INDICATIONS: 50478, 46866- Right L2/3, L3/4, L4/5 Facet Joint Injection FINDINGS: Fluoroscopic spot filming was performed to verify placement of spinal needles at the L2-L3, L3-L4 at L4-L5 levels. Appropriate location(s) of the needle tip(s) was confirmed by injection of iodinated contrast. Dictated by: Yariel Dubois M.D. on 02/20/2019 at 12:56 Approved by: Yariel Dubois M.D. on 02/20/2019 at 12:57
[2019-02-20] MEDS: MIDAZOLAM 5 MG/5 ML VIAL IV (11:17)
[2019-02-20] MEDS: fentaNYL 100 MCG/2 ML INJ 50 MCG IV (11:17)
[2019-02-20] MEDS: IOPAMIDOL 15 ML VIAL 3 ML INJ (11:26)
[2019-02-20] MEDS: LIDOCAINE 1% 20 ML INJ 10 ML INJ (11:26)
[2019-02-20] MEDS: BETAMETHASONE 30 MG/5 ML MDV 12 MG INJ (11:27)
[2019-02-20] MEDS: BUPIVACAINE 0.5% (PF) VIAL 2 ML INJ (11:27)
--- NOTE | 2019-02-20 11:28 | PC.NURSE ---
ASSISTING PT OFF TABLE AND TRANSPORTING TO POST PROC AREA IN STABLE CONDITION
--- NOTE | 2019-02-20 11:35 | CM.MNRNOTE ---
Pt returned awake and alert via wheelchair and able to transfer from w/c to chair with standby assist. Resumed monitoring from Josefa LEI.
--- NOTE | 2019-02-20 12:12 | P.PCN_ITS ---
Procedures Date/Time Date of procedure: 02/20/19 Time of procedure: 12:11 General Procedure description: Procedures Date/Time Date of procedure: 02/20/19 Time of procedure: 11:37 General Procedure description: PREOP DIAGNOSIS 1. FACET ARTHROPATHY, 2. AXIAL LBP, 3. MULTILEVEL DDD, POST OP DIAGNOSIS 1. FACET ARTHROPATHY, 2. AXIAL LBP, 3. MULTILEVEL DDD, PROCEDURES 1. FLUORSCOPICALLY GUIDED CONTRAST CONTROLLED FACET JOINT INJECTIONS RIGHT L3/4, L4/5 SURGEON: Nathaniel Maldonado, INDICATIONS Sandeep is referred by Dr. Coronado for treatment of Axial LBP FINDINGS Multilevel Facet Arthropathy with Clinically significant axial LBP DESCRIPTION OF PROCEDURE Fluoroscopically guided, contrast-controlled right L2/3, L3/4, L4/5 facet joint injections. Following review of allergy and review of potential side effects and complic ations, including, but not necessarily limited to, infection, allergic reaction, local tissue breakdown, stroke, temporary or permanent nerve injury, paralysis, and possible , the patient indicated that the patient understood and agreed to proceed. An informed consent document was signed by the patient, witnessed by a nurse, and placed in the patient's chart. Additionally, other treatment o ptions including medications, modalities, and physical therapy were reviewed with the patient. After review of previous anaesthesic history and IV conscious sedation the patient was deemed safe to proceed with todays procedure with IV conscious sedation as ASA class II designation. Safety time-out was performed to confirm patient ID, procedure to be performed and site of procedure. IV sedation was accomplished with a combination of 3mg of Versed and 50mcg of Fentanyl administered by the RN after DO order, titrated to patient comfort during the course of the procedure while the patient remained responsive to all verbal commands. In the prone position, following sterile prep and drape of the lumbar region, the posterior aspect of the right L2/3, L3/4, L4/5 facet joints were identified fluoroscopically. The skin was anesthetized via a 25-gauge 1.5-inch needle with 1% lidocaine solution into the corresponding facet joints. At this point, a 22- gauge 3.5-inch spinal needle was atraumatically introduced and advanced under fluoroscopic guidance into the corresponding facet joints. Following negative aspiration, injections of approximately 0.2-cc of Isovue 200 confirmed interarticular placement without vascular uptake. Radiological data, including multiple fluoroscopic views of the lumbosacral spine, reveal a spinal needle at the right L2/3, L3/4, L4/5 facet joints. Subsequent views show flow of contrast material both superiorly and inferiorly within the joint space without vascular or intrathecal uptake. At this point, a total of 0.5 cc including a mixture of 0.25 cc Marcaine and 0.25 cc betamethasone was injected without complication into each of the corresponding facet joints. The patient tolerated the procedure well without signs or symptoms of complications prior to transfer to the recovery area for further monitoring. The patient was then transferred to the recovery area where they were observed for an appropriate period of time after the injection. The patient reported a VAS score of 7 prior to the procedure and a post-procedure VAS of 0. Total Fluoroscopy Time: 12.7 seconds Total Conscious Sedation Time: 24min POST OP INSTRUCTIONS The patient was provided a Pain Log to continue to record their response to the target-specific procedure prior to follow-up visit with their referring physician. Additionally, specific post-injection care instructions and a contact number to our office were provided if concerns arise regarding possible complications associated with the procedure are suspected Complications: none Complications: none
== END 2019-02-20 12:08 ==
LOC: RAD 10:23
PROVIDERS: PCP Family Medicine; Visit Provider Physical Medicine & Rehabilitation
DX: M47.816 Spondylosis without myelopathy or radiculopathy, lumbar region (principal); M54.5 Low back pain; M51.36 Other intervertebral disc degeneration, lumbar region
CPT/HCPCS: 64493; 64494; 64495; 99152; 99153; J0702; J2250; J3010

== ENCOUNTER → 2019-03-12 12:40 | Outpatient (CLI) | payer MEDICARE, OTHER, SELFPAY ==
--- NOTE | 2019-03-12 12:44 | DI.RAD.S_ITS ---
PROCEDURE: XR KNEE LT 3V INDICATIONS: knee pain and buckling TECHNIQUE: 3 views of the knee were acquired. COMPARISON: None. FINDINGS: Bones: No fractures or dislocations, but there is a mild degree of degenerative osteoarthritis at the medial compartment of the left knee.. No suspicious bony lesions. Soft tissues: No joint effusion. No suspicious soft tissue calcifications. IMPRESSION: No effusion or loose body found, mild medial compartment knee joint osteoarthritis on the left. Dictated by: Navi Richardson M.D. on 03/12/2019 at 13:50 Approved by: Navi Richardson M.D. on 03/12/2019 at 13:56
== END ==
PROVIDERS: PCP Family Medicine; Visit Provider Registered Nurse
DX: M25.562 Pain in left knee (principal); M17.12 Unilateral primary osteoarthritis, left knee
CPT/HCPCS: 73562

== ENCOUNTER 2019-03-20 09:48 | Day surgery (SDC) | payer OTHER, SELFPAY ==
[2019-03-20] VITALS (7 sets, daily range): BP systolic 103–141; BP diastolic 60–76; PULSE 63–72; RESP 11–17; TEMP 36.2–36.7; O2SAT 93–97; BMI 32.3
--- NOTE | 2019-03-20 | PATH_ITS ---
[facility] Accession Number: [id number] . 01 Material submitted: . PART A: gastrointestinal site - BIOPSY STOMACH PART B: gastrointestinal site - RANDOM BIOPSIES STOMACH BX ANTRUM STOMACH . 01 Clinical history: . A. BLEEDING LESION B. RULE OUT H. PYLORI . 02 Diagnosis: A. Stomach, Biopsy: Fragments of gastric hyperplastic polyp. No evidence of Helicobacter on H/E stain. Negative for intestinal metaplasia. Negative for dysplasia and malignancy. . B. Stomach, Random Biopsies: Antral mucosa with no diagnostic abnormality. Negative for Helicobacter by immunohistochemistry. Negative for intestinal metaplasia by alcian blue stain. Negative for dysplasia and malignancy. [facility]/03/22/2019 . 02 Electronically signed: . Yolanda Coughlin MD, Pathologist NPI- [id number] . 01 Gross description: . Part A: BIOPSY STOMACH: Received in formalin are 3 fragment(s) of fraga, soft tissue measuring 0.1 x 0.1 x 0.1 cm to 0.3 x 0.2 x 0.2 cm which is entirely submitted and submitted entirely in 1 cassette(s) Part B: RANDOM BIOPSIES STOMACH BX ANTRUM STOMACH: Received in formalin are 2 fragment(s) of fraga, soft tissue measuring 0.2 x 0.2 x 0.2 cm to 0.3 x 0.2 x 0.2 cm which is entirely submitted and submitted entirely in 1 cassette(s) /DMC /DMC . 02 Microscopic: . B. An immunohistochemical stain was performed to evaluate for Helicobacter organisms and is negative. A HEAB stain was performed to evaluate for intestinal metaplasia and is negative. Both control stains showed appropriate reactivity. . * This test was developed and its performance characteristics determined by [facility]. It has not been cleared or approved by the U.S. Food and Drug Administration. The FDA has determined that such clearance or approval is not necessary. This test is used for clinical purposes. It should not be regarded as investigational or for research. . 02 Pathologist provided ICD-10: R10.9 . 02 CPT . 949380, 322746, W18296, 573306 Performed at: 01 [facility] [address] [place] [id number] MD Cristopher Woods MD Phone: [phone] Performed at: [address] [id number] MD Yolanda Coughlin MD Phone: [phone]
[2019-03-20] MEDS: SODIUM CHLORIDE 0.9% 1,000 ML 200 ML IV (10:30)
--- NOTE | 2019-03-20 11:11 | PM.PREOP ---
Pre-operative Note Interval Note History & Physical reviewed/Exam performed by Physician: Yes Changes to H&P: No ASA Class (for procedural sedation): II
[2019-03-20] MEDS: LIDOCAINE 4% SOLN 50 ML 20 ML TOP (11:24)
[2019-03-20] MEDS: MIDAZOLAM 5 MG/5 ML VIAL IV (11:26)
[2019-03-20] MEDS: fentaNYL 250 MCG/5 ML INJ 150 MCG IV (11:28)
--- NOTE | 2019-03-20 11:40 | P.OP.ENDO_ITS ---
Operative Date/Time/Diagnoses Date of procedure: 03/20/19 Time of procedure: 11:36 Pre-op diagnosis: Epigastric pain Post-op diagnosis: same (Bleeding gastric lesions. Mild proximal cobblestoning.) Procedure & Clinicians Study performed: EGD with cold biopsy Same procedure as scheduled: Yes Indications: Diagnostic to determine cause of epigastric pain Surgeon: Jordan Mauro Procedure Notes SCOAP/Timeout: Performed Procedure in detail: The patient had topical anesthetic applied to oropharynx. She was placed in left lateral decubitus position and underwent IV sedation directed by the surgeon consisting of fentanyl and Versed. A bite block was inserted and the scope was advanced through it into the esophagus. The esophagus was unremarkable. GE junction was noted at 40 cm from the incisors. The stomach insufflated poorly. Patient could not hold air and continuously belt stitch while sedated.. There were no lesions seen in the antrum. In the proximal stomach there was some mild cobblestoning seen as I entered the stomach. There was also bleeding lesion not far from the GE junction. In the body distally there was a bleeding lesion as well. The pyloric channel was widely patent. The duodenum was unremarkable to the 4th part. The scope was brought back into the stomach and retroflexed. The proximal stomach had no evidence of a hiatal hernia. It was difficulty to distend his stomach complete ly because of continuous loss of air through the mouth. The tube bleeding lesions I could see well in the stomach were biopsied.. The scope was straightened and brought out through the esophagus again. No lesions were seen. There was no evidence of Hogan's esophagus. The scope was removed and the patient tolerated the procedure well. Scope withdrawal time: Not applicable Sedation minutes: 14 Findings: gastric ulcer Recommendations: Will call with biopsy results Disposition: PACU
--- NOTE | 2019-03-20 11:48 | SUR.OPER ---
PATIENT TOLERATED PROCEDURE WELL. VITAL SIGNS STABLE SEE STRIPS, REACTION TO VERBAL STIMU;I APPROPRIATE
== END 2019-03-20 12:22 | disposition home or self-care (01) ==
PROVIDERS: PCP Family Medicine; Visit Provider Specialist
PROC: 0DJ08ZZ Inspection of Upper Intestinal Tract, Via Natural or Artificial Opening Endoscopic (ICD-10-PCS; CPT 43235; principal; 2019-03-20 10:45)
DX: R10.13 Epigastric pain (principal)
CPT/HCPCS: 43239; 99152; J2250; J3010

== ENCOUNTER → 2019-08-03 14:10 | Outpatient (CLI) | payer OTHER, MEDICARE, SELFPAY ==
--- NOTE | 2019-08-03 | DI.US.S_ITS ---
PROCEDURE: US ABD AORTA ANEURYSM SCREEN INDICATIONS: HISTORY OF TOBACCO USE TECHNIQUE: Real time scanning was performed of the aorta and iliac arteries, with image documentation. COMPARISON: [facility], CT, KIDNEY/ URETER/BLADDER, 07/09/2014, 12:03. FINDINGS: Aorta: Proximal aortic diameter measures 2.8 cm. Mid-aorta not well visualized.. Distal aortic diameter is 1.9 cm. Iliac arteries: Not well-visualized. Liver is diffusely increased in echogenicity. No focal hepatic abnormalities identified. Normal hepatic size. There is probable focal fatty sparing within the left hepatic lobe which is incompletely imaged. IMPRESSION: 1. Ectasia of the proximal aorta and the mid aorta as well as a iliac arteries are obscured by overlying bowel gas. Either followup ultrasound recommended. 2. Increased hepatic echogenicity noted possibly related to hepatic steatosis but other sources of hepatocellular disease including hepatic cirrhosis cannot be excluded. Recommend clinical correlation. There is likely focal fatty sparing within the left hepatic lobe which is incompletely imaged. When clinically feasible recommend formal abdominal ultrasound for further assessment. Dictated by: Doug Jaramillo [facility] Interpreted: Tao Medina MD on 08/03/2019 at 16:30 Approved by: Tao Medina M.D. on 08/03/2019 at 16:46
== END ==
PROVIDERS: Family Provider Family Medicine; PCP Family Medicine
DX: Z13.6 Encounter for screening for cardiovascular disorders (principal); I77.812 Thoracoabdominal aortic ectasia; Z87.891 Personal history of nicotine dependence
CPT/HCPCS: 76706

== ENCOUNTER 2019-08-09 13:43 | Outpatient (CLI) | payer OTHER, SELFPAY ==
[2019-08-09] VITALS (10 sets, daily range): BP systolic 120–155; BP diastolic 60–100; PULSE 53–73; RESP 16; TEMP 35.8; O2SAT 95–100
--- NOTE | 2019-08-09 13:44 | DI.RAD.S_ITS ---
PROCEDURE: PAIN SI JOINT INJECTION INDICATIONS: SPONDYLOSIS FINDINGS: Fluoroscopic spot filming was performed to verify placement of spinal needles at the right sacroiliac joint area, as labeled on the films. Appropriate location(s) of the needle tip(s) was confirmed by injection of iodinated contrast. IMPRESSION: Fluoroscopy for pain management. Dictated by: Chidi Tomas M.D. on 08/09/2019 at 15:42 Approved by: Chidi Tomas M.D. on 08/09/2019 at 15:43
[2019-08-09] MEDS: MIDAZOLAM 5 MG/5 ML VIAL IV (14:31)
[2019-08-09] MEDS: fentaNYL 100 MCG/2 ML INJ 50 MCG IV (14:31)
[2019-08-09] MEDS: IOPAMIDOL 15 ML VIAL 3 ML INJ (14:41)
[2019-08-09] MEDS: BETAMETHASONE 30 MG/5 ML MDV 6 MG INJ (14:41)
--- NOTE | 2019-08-09 14:43 | PC.NURSE ---
ASSISTING PT OFF TABLE AND TRANSPORTING TO POST PROC AREA IN STABLE CONDITION. PASSING RN CARE OF PT OFF TO ANAYA Gomez RN
--- NOTE | 2019-08-09 14:48 | P.PCN_ITS ---
Procedures Date/Time Date of procedure: 08/09/19 Time of procedure: 14:48 General Procedure description: PREOP Dx: Sacroiliac joint pain/DJD POST OP DX: Sacroiliac Joint Pain/DJD Procedures: Fluoroscopic guided contrast controlled right sacroiliac joint injection Physician: Nathaniel Maldonado D.O. Indications: Sandeep is referred by Dr. Coronado for treatment of right sacroiliac joint DJD Description of procedure Fluoroscopic guided, contrast controlled right sacroiliac joint injection Following review of allergies and review of potential side effects and complications, including, but not necessarily limited to, infection, allergic r eaction, local tissue breakdown, temporary as well as permanent nerve injury, paralysis, stroke and possible , the patient indicated that they understood and agreed to proceed. An informed consent was signed by the patient, witnessed by a nurse, and placed in the patient's chart. Additionally, other treatment options including modalities, medications, and physical therapy were reviewed with the patient. After review of previous anaesthesic history and IV conscious sedation the patient was deemed safe to proceed with todays procedure with IV conscious sedation as ASA class II designation. Safety time-out was performed to confirm patient ID, procedure to be performed and site of procedure. IV sedation was accomplished with a combination of 3mg of Versed and 50mcg of Fentanyl was admi nistered by the RN after DO order, titrated to patient comfort during the course of the procedure while the patient remained responsive to all verbal commands In the prone position following sterile prep and drape of the pelvic region, the hyper lucency on in the inferior aspect of the sacroiliac joint was identified fluoroscopically the skin was anesthetized be a 25 gauge 1 eventual with approxi mately 2 cc of 1% lidocaine solution. At this point, a 22 gauge 3 in spinal needle was atraumatically introduced and advanced under fluoroscopic guidance into the inferior aspect of the right sacroiliac joint. Following negative aspiration, approximately 0.3 cc of Isovue-300 was injected confirming intra- articular placement without vascular uptake. Radiographic data, including multiple fluoroscopic views of the pelvis, reveals a spinal needle in the sacroiliac joint hyper lucent zone. Subsequent view show flow contrast tear superiorly and inferiorly within the joint capsule without vascular intrathecal uptake. At this point a total of 1cc of 0.5% Marcaine was combined with 1cc of 6 mg of betamethasone was injected without incident. The procedure tolerated the procedure well without signs or symptoms of complications prior to transfer to the recovery area continued monitoring without incident. The patient was then transferred to the recovery area with a bur observed for an appropriate time after the injection. The patient reverted a vas score of 7 prior to the procedure and postprocedure vas of 1. Total fluoroscopy time: 22.7 sec Total conscious sedation time: 24 min Postop instructions The patient was provided with a pain like to continue to record the patient's response to the target specific procedure prior to the patient's follow-up visit with the referring physician. Additionally, specific post injection care instructions and a contact number to our office were provided if concerns arise regarding the possible complications associated with procedure are suspected. Nathaniel Maldonado D.O. Complications: none
[2019-08-09] MEDS: BUPIVACAINE 0.5% (PF) VIAL 2 ML INJ (15:11)
[2019-08-09] MEDS: LIDOCAINE 1% 20 ML 5 ML INJ (15:12)
--- NOTE | 2019-08-09 15:39 | PC.NURSE ---
at 1453 returned from procedure via w/c, transfer self to recliner, assuming care from Josefa deutsch, pt tolerating drinking water.
== END 2019-08-09 15:22 | disposition home or self-care (01) ==
LOC: RAD 13:43
PROVIDERS: PCP Family Medicine; Visit Provider Physical Medicine & Rehabilitation
DX: M53.3 Sacrococcygeal disorders, not elsewhere classified (principal); M47.898 Other spondylosis, sacral and sacrococcygeal region
CPT/HCPCS: 27096; 99152; J0702; J1100; J2250; J3010

== ENCOUNTER → 2019-10-12 10:55 | Outpatient (CLI) | payer OTHER, MEDICARE, SELFPAY ==
--- NOTE | 2019-10-12 11:04 | DI.US.S_ITS ---
PROCEDURE: US ABDOMEN LIMITED INDICATIONS: HX OF TABACCO USE, RECOM LIVER US FROM PRIOR US TECHNIQUE: Real-time focused scanning was performed of the abdomen, with image documentation. COMPARISON: [facility], CT, CT CHEST W CON, 08/09/2018, 17:30. [facility], US, US ABD AORTA ANEURYSM SCREEN, 08/03/2019, 14:39. FINDINGS: The liver is heterogeneous but generally hyperechoic in echotexture, without focal mass lesions. Several areas of geographic lower echogenicity are seen, consistent with focal sparing from otherwise diffuse fatty infiltration. Again noted is mild aneurysmal dilatation of the distal aorta, measuring up to 3.1 cm in maximal axial dimension. IMPRESSION: Prominent fatty infiltration throughout the liver parenchyma, with mild heterogeneous sparing from the fatty infiltration process producing scattered areas of geographic lower attenuation. Hepatic mass lesions are not seen, biliary distention is not found. Correlation for etiology of hepatic steatosis appears warranted. Dictated by: Navi Richardson M.D. on 10/12/2019 at 14:39 Approved by: Navi Richardson M.D. on 10/12/2019 at 14:42
== END ==
PROVIDERS: Family Provider Family Medicine; PCP Family Medicine
DX: Z13.6 Encounter for screening for cardiovascular disorders (principal); I71.4 Abdominal aortic aneurysm, without rupture; K76.0 Fatty (change of) liver, not elsewhere classified; Z87.891 Personal history of nicotine dependence
CPT/HCPCS: 76705

== ENCOUNTER → 2020-01-07 16:11 | Outpatient (CLI) | payer MEDICARE, OTHER, SELFPAY ==
--- NOTE | 2020-01-07 16:15 | DI.RAD.S_ITS ---
PROCEDURE: XR CERVICAL SPINE 4V OR 5V INDICATIONS: Chronic progressive neck pain TECHNIQUE: 5 views of the cervical spine acquired. COMPARISON: [facility], RG, XR C-SPINE 4-6V, 08/20/2004, 8:33. [facility], MR, C-SPINE W&WO CONTRAST, 08/11/2012, 17:43. FINDINGS: Bones: No fractures or dislocations to the T1 level. Oblique images demonstrate multilevel bony foraminal stenoses bilaterally, best seen from C3-C7, and most pronounced at C34 and C4-5 and to a slightly lesser degree C5-6. Additionally, degenerative disc disease has progressed along the middle and lower thirds of the cervical spine.. Soft tissues: No prevertebral soft tissue swelling. IMPRESSION: Slow interval progression of degenerative disc disease and facet osteoarthritis over the cervical spine best seen over the middle and lower thirds. This results in significant likelihood of spinal and foraminal stenosis, generally symmetric bilaterally, and followup by MR scanning may be warranted if intervention in some form would be anticipated. Comparison prior MRI of the cervical spine is available from 08/11/12. Dictated by: Navi Richardson M.D. on 01/07/2020 at 16:43 Approved by: Navi Richardson M.D. on 01/07/2020 at 16:45
== END ==
PROVIDERS: Family Provider Family Medicine; PCP Family Medicine; Referring Provider Family Medicine; Visit Provider Physical Medicine & Rehabilitation
DX: M50.020 Cervical disc disorder with myelopathy, mid-cervical region, unspecified level (principal); M47.12 Other spondylosis with myelopathy, cervical region; M48.02 Spinal stenosis, cervical region; M47.27 Other spondylosis with radiculopathy, lumbosacral region; G95.9 Disease of spinal cord, unspecified; G89.29 Other chronic pain; F41.9 Anxiety disorder, unspecified
CPT/HCPCS: 72050; 99213

== ENCOUNTER → 2020-01-08 16:50 | Outpatient (CLI) | payer MEDICARE, OTHER, SELFPAY ==
--- NOTE | 2020-01-08 16:54 | DI.MRI.S_ITS ---
PROCEDURE: MR CERVICAL SPINE WO CON INDICATIONS: Cervical myelopathy TECHNIQUE: Noncontrast sagittal T1 spin echo and T2 fast spin echo, sagittal STIR, foraminal oblique sagittal T2 fast spin echo, and axial gradient echo or T2 fast spin echo through the cervical spine. COMPARISON: [facility], CR, XR CERVICAL SPINE 4V OR 5V, 01/07/2020, 16:13. [facility], MR, C-SPINE W&WO CONTRAST, 08/11/2012, 17:43. FINDINGS: Image quality: This examination is limited by involuntary motion artifact. Alignment and Curvature: There is normal bony alignment. Bone Marrow: Marrow demonstrates normal overall signal. Spinal Cord: Visualized spinal cord has normal size and signal. No cerebellar tonsillar herniation. Paraspinous Soft Tissues: No paravertebral masses. Prevertebral soft tissues are normal in thickness. C2-C3: The disc height is well-preserved. Loss of disc signal is seen at this level. Moderate disc osteophyte complex is seen, which is eccentric to the right. There is moderate right-sided facet hypertrophy seen. Mild left-sided facet hypertrophy is seen. There is moderate to severe right-sided and moderate left-sided neural foraminal narrowing seen. The central canal is widely patent. C3-C4: Moderate loss of disc height is seen. Loss of disc signal is seen. Moderate generalized disc osteophyte complex is seen. Moderate to prominent facet hypertrophy is seen. Moderate to severe bilateral neural foraminal narrowing can be seen. Moderate central canal narrowing is seen. There is associated mass effect upon the ventral spinal cord. C4-C5: There is at least moderate loss of disc height and disc signal seen. Moderate to prominent disc osteophyte complex is seen. Moderate to prominent facet hypertrophy is seen. There is at least moderate right-sided facet is seen. There is moderate to severe bilateral neural foraminal narrowing seen, left worse than right. Moderate to severe central canal narrowing is seen. There is associated mass effect upon the ventral spinal cord. C5-C6: Moderate loss of disc height is seen. Loss of disc signal is seen. Moderate to prominent disc osteophyte complex is seen. Moderate to prominent facet hypertrophy is seen. There is moderate to severe bilateral neural foraminal narrowing seen. At least moderate central canal narrowing is seen. There is associated mass effect upon the ventral spinal cord. C6-C7: Moderate loss of disc height is seen. Loss of disc signal is seen. Moderate generalized disc osteophyte complex is seen. There is a mild central disc osteophyte protrusion seen. Mild to moderate facet hypertrophy is seen. There is no significant neural foraminal narrowing seen. Lifv-ie-qmaqctga central canal narrowing is seen. There is associated mass effect upon the ventral spinal cord. C7-T1: The disc height is well-preserved. Loss of disc signal is seen at this level. A mild degree of generalized disc osteophyte complex is seen. There is mild left-sided and no right-sided neural foraminal narrowing seen. No significant central canal narrowing is seen. IMPRESSION: Multiple levels of cervical spine degenerative change are seen, which have overall progressed compared to 2012. This study is limited by motion artifact. Dictated by: Fuad Elizabeth M.D. on 01/08/2020 at 17:22 Approved by: Fuad Elizabeth M.D. on 01/08/2020 at 17:29
== END ==
PROVIDERS: Family Provider Family Medicine; PCP Family Medicine; Referring Provider Physical Medicine & Rehabilitation; Visit Provider Physical Medicine & Rehabilitation
DX: M47.12 Other spondylosis with myelopathy, cervical region (principal)
CPT/HCPCS: 72141

== ENCOUNTER → 2020-01-31 09:33 | Outpatient (CLI) | payer MEDICARE, OTHER, SELFPAY ==
--- NOTE | 2020-01-31 09:52 | DI.CT.S_ITS ---
PROCEDURE: CT ABDOMEN PELVIS WO CON INDICATIONS: medial groin/thigh pain r/o ing hernia TECHNIQUE: Noncontrast 5 mm thick sections acquired from the diaphragms to the symphysis. 5 mm coronal and sagittal reformats were then performed. For radiation dose reduction, the following was used: automated exposure control, adjustment of mA and/or kV according to patient size. COMPARISON: None. FINDINGS: Image quality: Excellent. ABDOMEN: Lung bases: Lung bases are clear. Heart size is normal. Solid organs: Liver is normal in size. Gallbladder appears normal. Pancreas is normal in contours. Spleen is normal in size. No adrenal nodules. Kidneys are normal in size, without hydronephrosis or nephrolithiasis. Peritoneum and bowel: Unenhanced bowel loops demonstrate normal wall thickness and caliber. No free fluid or air. Colonic diverticulosis is present, relatively prominent the descending colon and sigmoid bowel but no acute diverticulitis is seen. Nodes and vessels: No retroperitoneal or mesenteric adenopathy by size criteria. Aorta and inferior vena cava are normal in caliber. Miscellaneous: No ventral hernias. Presumed vasectomy surgical clips noted bilaterally. PELVIS: Genitourinary: Bladder wall thickness is normal. Miscellaneous: No inguinal hernias or adenopathy. Bones: No suspicious bony lesions. No vertebral body compression fractures. IMPRESSION: Relatively prominent diverticulosis best seen along the descending colon, without acute diverticulitis. No ventral or inguinal hernia is found. Source and medial groin and thigh pain is not identified. Dictated by: Navi Richardson M.D. on 01/31/2020 at 11:19 Approved by: Navi Richardson M.D. on 01/31/2020 at 11:22
== END ==
PROVIDERS: Family Provider Family Medicine; PCP Family Medicine; Referring Provider Specialist; Visit Provider Specialist
DX: R10.31 Right lower quadrant pain (principal); R10.32 Left lower quadrant pain; K57.30 Diverticulosis of large intestine without perforation or abscess without bleeding
CPT/HCPCS: 74176; Q9967

== ENCOUNTER 2020-03-08 13:40 | Emergency (ER) | payer OTHER, MEDICARE, SELFPAY ==
[2020-03-08] VITALS (11 sets, daily range): BP systolic 134–176; BP diastolic 61–83; PULSE 53–65; RESP 10–24; TEMP 36.6; O2SAT 96–98; BMI 31.9
--- NOTE | 2020-03-08 13:50 | DI.RAD.S_ITS ---
PROCEDURE: XR CHEST 1V INDICATIONS: chest pain TECHNIQUE: One view of the chest was acquired. COMPARISON: [facility], CR, CHEST 1 VIEW, 10/27/2017, 9:39. [facility], CT, CT CHEST W CON, 08/09/2018, 17:30. [facility], CR, XR CHEST 1V, 08/09/2018, 17:05. FINDINGS: Surgical changes and devices: None. Lungs and pleura: On this semiupright portable chest examination, no large pneumothorax or large pleural effusions are seen. No focal infiltrates are seen. Mediastinum: The cardiac contours are within normal limits. The aorta demonstrates calcification and tortuosity. Bones and chest wall: No suspicious bony lesions. Age-appropriate bony degenerative changes are seen. Overlying soft tissues appear unremarkable. IMPRESSION: Portable chest within normal limits. Dictated by: Fuad Elizabeth M.D. on 03/08/2020 at 13:45 Approved by: Fuad Elizabeth M.D. on 03/08/2020 at 13:47
[2020-03-08 14:06] LABS: Fractionated Inspired Oxygen 21; HCO3 ABG 30 mmol/L (22-26); Oxygen Saturation ABG 95 % (95-100); PCO2 ABG 46.9 mmHg (35-45); PO2 ABG 75 mmHg (80-100); TCO2 ABG 31 mmol/L (21-31); pH ABG 7.41 (7.35-7.45)
--- NOTE | 2020-03-08 14:09 | ED_ITS ---
HPI - SOB/Dyspnea General Chief Complaint: Shortness of Breath/Dyspnea Stated Complaint: Tingling fingers, narcolepsy Time Seen by Provider: 03/08/20 13:49 Mode of arrival: EMS Limitations: no limitations History of Present Illness HPI Narrative: The patient is a 69-year-old male who presents with excessive sleepiness. 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 He says he was up a little bit late last night but feels like he got a good night's rest. He had an active normal morn ing. He took his out for breakfast. He came home around 06 20 and laid on the couch he fell asleep and was unable to wake up. He did wake up at around noon to his he knew that it was time to give her her medications but he was really unable to open his eyes at which point he called 911. EMS initially reported a poor saturation in the 50% however he currently is 96% on room air and speaking without difficulty. He denies any shortness of breath or cough or fever. He does have some chest tightness similar to when he has had previously. He has been taking gabapentin for about the last 1 month and his dose has been titrated up to about 2100 daily, his last dose increase was last week. He took 600 mg at 9:00 a.m. and by 06 20 he was sleepy. Related Data Home Medications Medication Instructions Recorded Confirmed CPAP: CPAP/PAP Full Face Mask 1 ea MISCELLANEOUS QPM #0 04/14/16 01/30/20 epinephrine 1 dose IM PRN PRN #0 04/14/16 01/30/20 armodafinil 200 mg PO DAILY 08/09/18 01/30/20 buspirone 10 mg PO TID 08/09/18 01/30/20 lisinopril 10 mg PO DAILY 08/09/18 01/30/20 trazodone 50 mg PO BEDTIME 08/09/18 01/30/20 ResMed AirSense 10 CPAP #1 ea 10/24/18 01/30/20 lorazepam 1 mg tablet 1 mg PO PRN PRN tab 12/28/18 01/30/20 pramipexole 0.5 mg PO QPM 03/20/19 01/30/20 acetaminophen 500 mg tablet 500 mg PO QID PRN 05/18/20 06/10/20 armodafinil 200 mg tablet 100 mg PO .noon tab 01/07/20 01/30/20 omeprazole 20 mg capsule,delayed 20 mg PO BID cap 01/07/20 01/30/20 release carboxymethylcellulose sodium 0.5 EYE-BOTH 01/30/20 01/30/20 % eye drops in a dropperette flunisolide 25 mcg (0.025 %) nasal 2 spray NASAL BID 01/30/20 01/30/20 spray metoprolol tartrate 25 mg tablet 12.5 mg PO BID 01/30/20 01/30/20 owstext-dvoyurcduiuhw-lyrcuadj 250 2 tab PO Q6H PRN 02/27/20 mg-250 mg-65 mg tablet cholecalciferol (vitamin D3) 50 1,000 unit PO DAILY cap 02/27/20 mcg (2,000 unit) capsule Previous Rx's Medication Instructions Recorded gabapentin 300 mg capsule 300 mg PO .COMPLEX #210 cap 02/06/20 Allergies Allergy/AdvReac Type Severity Reaction Status Date / Time doxycycline [DOXYCYCLINE] Allergy Severe Anaphylaxis Verified 02/27/20 11:30 guaifenesin [GUAIFENESIN] Allergy Severe Throat Verified 02/27/20 11:30 swelling methylphenidate Allergy Severe Suicidal Verified 02/27/20 11:30 [METHYLPHENIDATE] ideation Penicillins [PENICILLINS] Allergy Severe Stiffens Verified 02/27/20 11:30 like a board and fell flat on his face pseudoephedrine Allergy Severe Throat Verified 02/27/20 11:30 [PSEUDOEPHEDRINE] swelling soy [SOY] Allergy Severe Anaphylaxis, Verified 02/27/20 11:30 diarrhea, swelling venom-honey bee Allergy Severe Anaphylaxis Verified 02/27/20 11:30 [BEE VENOM (HONEY BEE)] pneumococcal vaccine Allergy Mild Localized Verified 02/27/20 11:30 [From PNEUMOVAX 23] swelling, redness prazosin [PRAZOSIN] Allergy Unknown Unknown Verified 02/27/20 11:30 adhesive [ADHESIVE] AdvReac Intermediate Pulled Verified 02/27/20 11:30 skin off with removal gluten [GLUTEN] AdvReac Intermediate Celiac Verified 02/27/20 11:30 Disease lactose [LACTOSE] AdvReac Unknown GI upset, Verified 02/27/20 11:30 diarrhea CYLERT Allergy Severe Swelling, Uncoded 02/27/20 11:30 suicidal ideation Lettuce AdvReac Severe Anaphylactic Uncoded 02/27/20 11:30 Shock Review of Systems Review of Systems ROS Unobtainable: All systems reviewed & are unremarkable except as noted in HPI and below Constitutional Constitutional: Denies body ache(s), Reports daytime sleepiness, Denies difficulty sleeping, Denies fever(s) and Denies frequent falls ENT Ears, Nose, Mouth, and Throat: Denies vertigo and Denies dizziness Cardiovascular Cardiovascular: Reports as per HPI, Reports chest pain, Denies rapid heart rate, Denies leg edema, Denies dyspnea and Denies dyspnea on exertion Respiratory Respiratory: Denies cough, Denies dyspnea, Denies dyspnea on exertion and Denies wheezing Gastrointestinal Gastrointestinal: Denies abdominal pain, Denies change in bowel habits, Denies diarrhea, Denies nausea and Denies vomiting Musculoskeletal Musculoskeletal: Reports back pain Integumentary/Breasts Skin/Breast: Denies pruritus, Denies erythema, Denies rash and Denies wounds Neurologic Neurologic: Denies confusion, Denies vertigo, Denies dizziness and Denies frequent falls Psychiatric Psychiatric: Denies confusion Allergic/Immunologic Allergic/Immunologic: Denies wheezing Patient History Medical History Abdominal aortic aneurysm (Chronic) Alcoholism (Chronic) Allergic rhinitis (Chronic) Anxiety (Chronic) Arthritis (Acute) Celiac disease (Chronic) Cervical disc disorder (Chronic) Cervical disc disorder with radiculopathy (Acute) Cervical disc disorder with radiculopathy, high cervical region (Acute) Cervical myelopathy with cervical radiculopathy (Acute) Cervical neck pain with evidence of disc disease (Acute) Chronic sinusitis (Chronic) Depression (Acute) Diverticulitis (Acute) Diverticulosis (Acute) Essential hypertension (Chronic) Former smoker (Acute) GERD (gastroesophageal reflux disease) (Chronic) Hearing loss (Chronic) History of pneumonia (Acute) HNP (herniated nucleus pulposus), cervical (Acute) Hyperlipemia (Chronic) Hypertension (Acute) Impaired vision (Acute) Murmur (Chronic) Narcolepsy (Chronic) Nephrolithiasis (Chronic) Neuropathy (Acute) Obesity (BMI 30-39.9) (Chronic) Obstructive sleep apnea (Acute) Mcrosy-Agoxpv-Wpcv neutrophil abnormality (Chronic) PTSD (post-traumatic stress disorder) (Chronic) RLS (restless legs syndrome) (Chronic) Sacral dysfunction (Acute) Sinus drainage (Acute) Sleep apnea (Chronic) TIA (transient ischemic attack) (Acute) Surgical History H/O rhinoplasty (Acute) H/O right inguinal hernia repair (Acute) Hx of nasal septoplasty (Resolved) Hx of tonsillectomy (Resolved) Family History Brother Heart disease Diabetes mellitus Father Cancer Social History marital status: household members: spouse ( is disabled) occupational status: previously employed Smoking Status: Former smoker alcohol intake: never substance use type: does not use Smoking Status: Former smoker Substance Use Type: does not use Exam Initial Vital Signs Initial Vital Signs: Vital Signs Pulse Rate 60 03/08/20 13:47 Respiratory Rate 17 03/08/20 13:47 Pulse Oximetry 98 03/08/20 13:47 GENERAL: Alert male, he is talking without difficulty but says once he stops he will fall asleep HEENT: Head atraumatic,EOMI, pupils reactive, face symmetric, CARDIOVASCULAR: Regular rate and rhythm without murmurs, rubs or gallops. RESPIRATORY: Breath sounds equal bilaterally, no wheezes rales or rhonchi. ABDOMEN: Soft, nontender. Normoactive bowel sounds all 4 quadrants. No guarding or rebound. EXTREMITIES: Normal range of motion, no clubbing or edema. Neurovascularly intact NEUROLOGICAL: Alert and oriented x4.Normal gait and speech. Cranial nerves II through XII grossly intact. SKIN: Warm, dry, no laceration, no petechiae, no rashes or lesions. Course Orders Ordered: ED Orders 03/08/20 13:50 XR chest 1V Stat EKG-12 Lead Stat 03/08/20 13:59 Arterial Blood Gas Stat 03/08/20 14:17 Complete Blood Count AUTO DIFF Stat Comprehensive Metabolic Panel Stat Lipase Stat Partial Thromboplastin Time Stat Prothrombin Time INR Stat Troponin & CK Cardiac Panel Stat 03/08/20 16:05 Troponin I Stat Vital Signs Vital signs: Vital Signs - 8 hr 03/08/20 13:47 03/08/20 13:51 03/08/20 14:00 Temperature 97.9 F Pulse Rate 60 65 59 L Respiratory Rate 17 22 21 Blood Pressure 160/78 H Pulse Oximetry 98 97 97 03/08/20 14:30 03/08/20 15:00 03/08/20 15:30 Temperature Pulse Rate 56 L 56 L 63 Respiratory Rate 24 10 L 24 Blood Pressure Pulse Oximetry 97 96 97 03/08/20 16:00 03/08/20 16:05 03/08/20 16:30 Temperature Pulse Rate 53 L 62 53 L Respiratory Rate 18 20 14 Blood Pressure 134/61 Pulse Oximetry 97 97 96 03/08/20 17:00 03/08/20 17:01 Temperature Pulse Rate 62 Respiratory Rate Blood Pressure 176/83 H Pulse Oximetry 98 MDM - SOB/Dyspnea Lab Data Attestation: I reviewed the patient's lab results. Result diagrams: 03/08/20 14:17 03/08/20 14:17 Labs: Lab Results 03/08/20 03/08/20 03/08/20 Range/Units 13:59 14:17 14:17 WBC 6.0 (4.5-11.0) X10^3/uL RBC 4.35 L (4.5-5.9) X10^6/uL Hgb 13.0 L (13.5-17.5) g/dL Hct 38.5 L (41-53) % MCV 88.6 (80-100) fL MCH 29.9 (26-34) PG MCHC 33.7 (30-36) % RDW 13.9 (11.6-14.8) % Plt Count 156 (150-400) X10^3/uL Neut % (Auto) 65.8 (50-75) % Lymph % (Auto) 19.9 L (25-40) % [place] % (Auto) 9.9 (3-14) % Eos % (Auto) 3.6 (2-4) % Baso % (Auto) 0.8 (0-2) % Neut # (Auto) 3900 (5746-7235) /uL Lymph # (Auto) 1200 (7530-6434) /uL [place] # (Auto) 600 (0-900) /uL Eos # (Auto) 200 (0-450) /uL Baso # (Auto) 0 (0-100) /uL PT 11.4 (10.1-12.7) SECONDS INR 1.0 (0.9-1.3) APTT 33 (26.4-36.2) SECONDS ABG pH 7.41 (7.35-7.45) ABG pCO2 46.9 H (35-45) mmHg ABG pO2 75 L (80-100) mmHg ABG HCO3 30 H (22-26) mmol/L ABG Total CO2 31 (21-31) mmol/L ABG O2 Saturation 95 (95-100) % ABG Base Excess 5.0 H (-2-2) mmol/L FiO2 21 Sodium (137-145) mmol/L Potassium (3.4-5.1) mmol/L Chloride (98-107) mmol/L Carbon Dioxide (22-32) mmol/L BUN (9-20) mg/dL Creatinine (0.66-1.25) mg/dL Estimated GFR (>60) mL/min BUN/Creatinine Ratio (6-22) Glucose (80-110) mg/dL Calcium (8.4-10.2) mg/dL Total Bilirubin (0.2-1.3) mg/dL AST (17-59) IU/L ALT (<50) IU/L Alkaline Phosphatase (38-126) U/L Total Creatine Kinase (55-170) U/L CK-MB (CK-2) (<2.37) ng/mL CK-MB (CK-2) Rel Index (1.5-5.0) % Troponin I (0.01-0.034) ng/mL Total Protein (6.3-8.2) g/dL Albumin (3.5-5.0) g/dL Globulin (1.7-4.1) g/dL Albumin/Globulin Ratio (1.0-2.8) Lipase (23-300) U/L 03/08/20 03/08/20 Range/Units 14:17 16:05 WBC (4.5-11.0) X10^3/uL RBC (4.5-5.9) X10^6/uL Hgb (13.5-17.5) g/dL Hct (41-53) % MCV (80-100) fL MCH (26-34) PG MCHC (30-36) % RDW (11.6-14.8) % Plt Count (150-400) X10^3/uL Neut % (Auto) (50-75) % Lymph % (Auto) (25-40) % [place] % (Auto) (3-14) % Eos % (Auto) (2-4) % Baso % (Auto) (0-2) % Neut # (Auto) (8430-1792) /uL Lymph # (Auto) (2465-6691) /uL [place] # (Auto) (0-900) /uL Eos # (Auto) (0-450) /uL Baso # (Auto) (0-100) /uL PT (10.1-12.7) SECONDS INR (0.9-1.3) APTT (26.4-36.2) SECONDS ABG pH (7.35-7.45) ABG pCO2 (35-45) mmHg ABG pO2 (80-100) mmHg ABG HCO3 (22-26) mmol/L ABG Total CO2 (21-31) mmol/L ABG O2 Saturation (95-100) % ABG Base Excess (-2-2) mmol/L FiO2 Sodium 139 (137-145) mmol/L Potassium 4.4 (3.4-5.1) mmol/L Chloride 105 (98-107) mmol/L Carbon Dioxide 30 (22-32) mmol/L BUN 23 H (9-20) mg/dL Creatinine 0.99 (0.66-1.25) mg/dL Estimated GFR > 60.0 (>60) mL/min BUN/Creatinine Ratio 23.2 H (6-22) Glucose 111 H (80-110) mg/dL Calcium 9.4 (8.4-10.2) mg/dL Total Bilirubin 0.4 (0.2-1.3) mg/dL AST 28 (17-59) IU/L ALT 18 (<50) IU/L Alkaline Phosphatase 98 (38-126) U/L Total Creatine Kinase 162 (55-170) U/L CK-MB (CK-2) 2.38 H (<2.37) ng/mL CK-MB (CK-2) Rel Index 1.5 (1.5-5.0) % Troponin I < 0.012 < 0.012 (0.01-0.034) ng/mL Total Protein 6.9 (6.3-8.2) g/dL Albumin 4.1 (3.5-5.0) g/dL Globulin 2.8 (1.7-4.1) g/dL Albumin/Globulin Ratio 1.5 (1.0-2.8) Lipase 65 (23-300) U/L Imaging Data Chest x-ray: Radiologist's Impression: PROCEDURE: XR CHEST 1V INDICATIONS: chest pain TECHNIQUE: One view of the chest was acquired. COMPARISON: [facility], CR, CHEST 1 VIEW, 10/27/2017, 9:39. [facility], CT, CT CHEST W CON, 08/09/2018, 17:30. [facility], CR, XR CHEST 1V, 08/09/2018, 17:05. FINDINGS: Surgical changes and devices: None. Lungs and pleura: On this semiupright portable chest examination, no large pneumothorax or large pleural effusions are seen. No focal infiltrates are seen. Mediastinum: The cardiac contours are within normal limits. The aorta demonstrates calcification and tortuosity. Bones and chest wall: No suspicious bony lesions. Age-appropriate bony degenerative changes are seen. Overlying soft tissues appear unremarkable. IMPRESSION: Portable chest within normal limits. Dictated by: Fuad Elizabeth M.D. on 03/08/2020 at 13:45 ECG Data Attestation: I personally reviewed and interpreted this ECG as follows: Prior ECG tracings: available for review Interpretation: Normal sinus rhythm rate 60 p.r. interval 196 QRS [address] changes PVC noted MDM Narrative Medical decision making narrative: Patient is a little sleepy however ABG shows only a slightly elevated CO2 with a normal pH. Unlikely to be hypercapnic causing his sleepiness. He also is having some chest discomfort and tightness b ut it does not seem to be his biggest complaint EKG shows PVCs without changes initial troponin is negative. It is possible his increasing gabapentin is causing him to be more sleepy during the daytime. Ambulatory without difficulty chest pain resolved 2-troponins. Decreased responsiveness slight possibly due to gabapentin, I recommend he follow-up with his primary care provider to discuss dosing. At this time he is ambulatory to the restroom and feels overall much better and feels ready and able to go home. Discharge Plan Departure Patient Disposition: Home Clinical Impression: Atypical chest pain Adverse drug reaction Qualifiers: Encounter type: initial encounter Qualified Code(s): T50.905A - Adverse effect of unspecified drugs, medicaments and biological substances, initial encounter Discharge Date/Time: 03/08/20 17:16 Instructions: DI for Adverse Drug Reaction -- Other Activity Restrictions/Additional Instructions: *You have been diagnosed with drug reaction, atypical chest pain *What to do: Your symptoms today are likely due to the gabapentin. It is possible that your dosage will need to be adjusted please discuss this with your doctor *Continue to take medications as directed *Follow up with your primary care provider in 2-3 days *Return to ER if you should have increasing chest pain, decreased responsiveness, weakness numbness tingling or any new, worsening or concerning symptoms Prescriptions: No Action epinephrine 0.3 MG/0.3 ML auto-injector 1 dose IM PRN PRN (Reason: Allergic Reaction) Qty: 0 RF: 0 CPAP: CPAP/PAP Full Face Mask 1 ea miscellaneous QPM Qty: 0 RF: 0 gabapentin 300 mg capsule 300 mg PO .COMPLEX Qty: 210 RF: 2 flunisolide 25 mcg (0.025 %) spray,non-aerosol 2 spray NASAL BID RF: 0 carboxymethylcellulose sodium 0.5 % dropperette EYE-BOTH RF: 0 metoprolol tartrate 25 mg tablet 12.5 mg PO BID RF: 0 lisinopril 10 mg tablet 10 mg PO DAILY RF: 0 buspirone 10 mg Tablet 10 mg PO TID RF: 0 armodafinil 200 mg tablet 200 mg PO DAILY RF: 0 trazodone 50 mg Tablet 50 mg PO BEDTIME RF: 0 lorazepam 1 mg tablet 1 mg PO PRN PRN (Reason: Anxiety) RF: 0 armodafinil 200 mg tablet 100 mg PO .noon RF: 0 omeprazole 20 mg capsule,delayed release(DR/EC) 20 mg PO BID RF: 0 cholecalciferol (vitamin D3) [Vitamin D3] 50 mcg (2,000 unit) capsule 1,000 unit PO DAILY RF: 0 pramipexole 0.5 mg Tablet 0.5 mg PO QPM RF: 0 acetaminophen [Tylenol Extra Strength] 500 mg tablet 500 mg PO QID PRNRF: 0 Excedrin Extra Strength 250-250-65 mg tablet 2 tab PO Q6H PRNRF: 0 (DME) ResMed AirSense 10 CPAP Qty: 1 RF: 0 Referrals: Sandeep Coronado MD [Primary Care Provider] -
[2020-03-08 14:30] LABS: Add Manual Diff / Slide Review NO; Basophils Absolute Auto 0 /uL (0-100); Basophils Percent Auto 0.8 % (0-2); Eosinophils Absolute Auto 200 /uL (0-450); Eosinophils Percent Auto 3.6 % (2-4); Hematocrit 38.5 % (41-53); Lymphocytes Absolute Auto 1200 /uL (1100-4500); Lymphocytes Percent Auto 19.9 % (25-40); Mean Corpuscular HGB Conc 33.7 % (30-36); Mean Corpuscular Hemoglobin 29.9 PG (26-34); Mean Corpuscular Volume 88.6 fL (80-100); Monocytes Absolute Auto 600 /uL (0-900); Monocytes Percent Auto 9.9 % (3-14); Neutrophils Absolute Auto 3900 /uL (1500-7000); Neutrophils Percent Auto 65.8 % (50-75); Platelet Count 156 X10^3/uL (150-400); Red Blood Cell Count 4.35 X10^6/uL (4.5-5.9); Red Cell Distribution Width 13.9 % (11.6-14.8)
[2020-03-08 14:38] LABS: Prothrombin Time 11.4 SECONDS (10.1-12.7)
[2020-03-08 14:40] LABS: PTT Partial Thromboplastin Tim 33 SECONDS (26.4-36.2)
[2020-03-08 14:42] LABS: Alanine Aminotransferase 18 IU/L (<50); Albumin 4.1 g/dL (3.5-5.0); Albumin Globulin Ratio 1.5 (1.0-2.8); Alkaline Phosphatase 98 U/L (38-126); Aspartate Aminotransferase 28 IU/L (17-59); BUN Creatinine Ratio 23.2 (6-22); Bilirubin Total 0.4 mg/dL (0.2-1.3); Blood Urea Nitrogen 23 mg/dL (9-20); Calcium 9.4 mg/dL (8.4-10.2); Carbon Dioxide 30 mmol/L (22-32); Chloride 105 mmol/L (98-107); Creatine Kinase 162 U/L (55-170); Estimated Glomerular Filt Rate > 60.0 mL/min (>60); Globulin 2.8 g/dL (1.7-4.1); Glucose 111 mg/dL (80-110); HEMOLYSIS 35 (0-50); Lipase 65 U/L (23-300); Potassium 4.4 mmol/L (3.4-5.1); Sodium 139 mmol/L (137-145); Total Protein 6.9 g/dL (6.3-8.2)
[2020-03-08 14:54] LABS: Troponin I < 0.012 ng/mL (0.01-0.034)
[2020-03-08 14:57] LABS: CKMB % Relative Index 1.5 % (1.5-5.0); Creatine Kinase MB 2.38 ng/mL (<2.37)
[2020-03-08 16:38] LABS: Troponin I < 0.012 ng/mL (0.01-0.034)
== END 2020-03-08 17:16 | disposition home or self-care (01) ==
PROVIDERS: Emergency Provider Emergency Medicine; Family Provider Family Medicine; PCP Family Medicine
DX: R07.89 Other chest pain (principal); T50.905A Adverse effect of unspecified drugs, medicaments and biological substances, initial encounter; M54.9 Dorsalgia, unspecified; R06.02 Shortness of breath
CPT/HCPCS: 36415; 36600; 71045; 80053; 82550; 82553; 82805; 83690; 84484; 85025; 85610; 85730; 93005; 99284

== ENCOUNTER → 2020-03-10 10:24 | Outpatient (CLI) | payer MEDICARE, OTHER, SELFPAY ==
[2020-03-11 03:45] LABS: COVID19 Sendout Not Detected (Not Detect)
== END ==
PROVIDERS: Family Provider Family Medicine; PCP Family Medicine; Visit Provider Nurse Practitioner
DX: Z01.812 Encounter for preprocedural laboratory examination (principal)
CPT/HCPCS: 87635

== ENCOUNTER 2020-03-13 07:18 | Outpatient (CLI) | payer MEDICARE, OTHER, SELFPAY ==
[2020-03-13] VITALS (9 sets, daily range): BP systolic 113–142; BP diastolic 56–83; PULSE 57–67; RESP 14–18; TEMP 36.1; O2SAT 94–99
--- NOTE | 2020-03-13 07:24 | DI.RAD.S_ITS ---
PROCEDURE: PAIN C/T INTERLAMINAR INJECT INDICATIONS: SPINAL STENOSIS COMPARISON: None. FINDINGS: Fluoroscopic spot filming was performed to verify placement of spinal needles at the translaminar C6-C7 level(s), as labeled on the films. Appropriate location(s) of the needle tip(s) was confirmed by injection of iodinated contrast. IMPRESSION: Successful needle tip localization for translaminar epidural steroid injection at C6-C7. Dictated by: Navi Richardson M.D. on 03/13/2020 at 10:37 Approved by: Navi Richardson M.D. on 03/13/2020 at 10:38
[2020-03-13] MEDS: MIDAZOLAM 5 MG/5 ML VIAL IV (08:40)
[2020-03-13] MEDS: fentaNYL 100 MCG/2 ML INJ 50 MCG IV (08:40)
[2020-03-13] MEDS: DEXAMETHASONE 10 MG/ML VIAL 20 MG INJ (08:42)
[2020-03-13] MEDS: BUPIVACAINE 0.25% (PF) VIAL 2 ML INJ (08:42)
[2020-03-13] MEDS: IOPAMIDOL 15 ML VIAL 3 ML INJ (08:42)
--- NOTE | 2020-03-13 09:00 | P.PCN_ITS ---
Date/Time/Diagnoses Date of procedure: 03/13/20 Time of procedure: 09:01 Pre-procedure diagnosis: 1. CERVICAL STENOSIS, 2. CERVICAL HNP WITH UPPER EXTREMITY RADICULAR FEATURES, Post-procedure diagnosis: same Procedure Notes Procedure: 1. FLUORSCOPICALLY GUIDED CONTRAST CONTROLLED INTERLAMINAR EPIDURAL STEROID INJECTION - C6/7 TL CHARITY Indications: Sandeep is referred by Dr. Coronado for treatment of Cervical HNP with Upper Extremity Paresthesias. Physician: Nathaniel Maldonado Total Fluoroscopy time (seconds): 23 Total sedation minutes: 24 Complications: none Procedure in detail & Post-procedure care: FINDINGS Cervical Stenosis due to disc deterioration and nerve root irritation and nerve root irritation DESCRIPTION OF PROCEDURE Fluoroscopically guided, contrast-controlled C6/7 translaminar epidural steroid injection with conscious sedation. Following review of allergy and review of potential side effects and complications, including, but not necessarily limited to, infection, allergic reaction, local tissue breakdown, temporary as well as permanent nerve injury, stroke, paralysis, and possible , the patient indicated that patient understood and agreed to proceed. An informed consent document was signed by the patient, witnessed by a nurse, and placed in the patient's chart. Additionally, other treatment options including modalities, medications, and physical therapy were reviewed with the patient. After review of previous anaesthesic history and IV conscious sedation the patient was deemed safe to proceed with today?s procedure with IV conscious sedation as ASA class II designation. Safety time-out was performed to confirm patient ID, procedure to be performed and site of procedure. IV sedation was accomplished with a combination of 2mg of Versed and 50mcg of Fentanyl administered by the RN after DO order, titrated to patient comfort during the course of the procedure while the patient remained responsive to all verbal commands. In the prone position, following sterile prep and drape of the cervical region, the C6/7 translaminar space was identified fluoroscopically. The skin was anesthetized via a 25-gauge 1.5-inch needle with 1% lidocaine solution. At this point, a 25-gauge, 2.5-inch short bevel spinal needle was atraumatically introduced and advanced under fluoroscopic guidance into epidural space at the C6/7 translaminar space. Depth was confirmed on lateral view. Radiological data, including multiple fluoroscopic views of the cervical spine, reveal a spinal needle at the C6/7 translaminar space. Lateral views then show placement of the needle in the epidural space. Subsequent views show contrast material flowing superiorly and inferiorly in the epidural space. DSA fluoroscopy with live contrast injection, once again, confirmed no vascular or intrathecal uptake. At this point, using loss of resistance technique with saline and air, the epidural space was entered. Following negative aspiration, injection of a pproximately 1.5 cc of Isovue-200 with live fluoroscopy in the AP view confirmed epidural flow in the epidural space without vascular or intrathecal uptake observed. Subsequently, a test dose of 1 cc of 1% lidocaine solution was injected and patient was observed for two minutes without signs or symptoms of complications, including abdominal pain, shortness of breath, bilateral upper or lower extremity weakness, nausea and vomiting, prior to steroid injection. At this point, 2cc or 20mg of dexamethasone was then injected without incident. The patient tolerated the procedure well without signs or symptoms of complications prior to being transferred to the recovery area for further monitoring, The patient was then transferred to the recovery area where they were observed for an appropriate period of time after the injection. The patient reported a VAS score of 6 prior to the procedure and a post-procedure VAS of 0. POST OP INSTRUCTIONS The patient was provided a Pain Log to continue to record their response to the target-specific procedure prior to follow-up visit with the referring provider. Additionally, specific post-injection care instructions and a contact number to our office were provided if concerns arise regarding possible complications associated with the procedure are suspected.
--- NOTE | 2020-03-13 09:54 | PC.NURSE ---
0824 Pt returned to pre proc room by . Independent on transfer from wc to chair. Monitoring resumed per protocol
--- NOTE | 2020-03-13 16:12 | PC.NURSE ---
Pt tolerated procedure well. VSS upon transfer to post procedure room. Report given to DO Manzano. EDITH Fent and Versed given by Myriam Saunders. All other meds administered by Dr. Maldonado.
== END 2020-03-13 09:30 | disposition home or self-care (01) ==
PROVIDERS: Family Provider Family Medicine; PCP Family Medicine; Referring Provider Physical Medicine & Rehabilitation; Visit Provider Physical Medicine & Rehabilitation
DX: M48.02 Spinal stenosis, cervical region (principal); M50.123 Cervical disc disorder at C6-C7 level with radiculopathy; R20.2 Paresthesia of skin
CPT/HCPCS: 62321; 99152; J1100; J2250; J3010

== ENCOUNTER → 2020-05-24 11:32 | Outpatient (CLI) | payer MEDICARE, OTHER, SELFPAY ==
[2020-05-25 22:39] LABS: COVID19 Sendout Not Detected (Not Detect)
== END ==
PROVIDERS: Family Provider Family Medicine; PCP Family Medicine; Visit Provider Physician Assistant
DX: Z11.59 Encounter for screening for other viral diseases (principal)
CPT/HCPCS: 87635

== ENCOUNTER 2020-05-27 08:07 | Outpatient (CLI) | payer MEDICARE, OTHER, SELFPAY ==
[2020-05-27] VITALS (9 sets, daily range): BP systolic 126–162; BP diastolic 63–87; PULSE 53–61; RESP 10–18; TEMP 36.2; O2SAT 96–99
--- NOTE | 2020-05-27 08:08 | DI.RAD.S_ITS ---
PROCEDURE: PAIN C/T FACET INJ/BLK 1ST L INDICATIONS: CERVICAL SPONDYLOSIS COMPARISON: [facility], , PAIN C/T INTERLAMINAR INJECT, 03/13/2020, 7:40. FINDINGS: Fluoroscopic spot filming was performed to verify placement of spinal needles at the C5-C6 and C6-C7 level(s), as labeled on the films. Appropriate location(s) of the needle tip(s) was confirmed by injection of iodinated contrast. IMPRESSION: Intraprocedural examination within normal limits. Dictated by: Fuad Elizabeth M.D. on 05/27/2020 at 9:35 Approved by: Fuad Elizabeth M.D. on 05/27/2020 at 9:35
[2020-05-27] MEDS: LIDOCAINE 1% 20 ML 5 ML INJ (08:55)
[2020-05-27] MEDS: BUPIVACAINE 0.25% (PF) VIAL 2 ML INJ (08:55)
[2020-05-27] MEDS: fentaNYL 100 MCG/2 ML INJ 50 MCG IV (08:55)
[2020-05-27] MEDS: MIDAZOLAM 5 MG/5 ML VIAL IV (09:02)
[2020-05-27] MEDS: IOPAMIDOL 15 ML VIAL 3 ML INJ (09:04)
[2020-05-27] MEDS: DEXAMETHASONE 10 MG/ML VIAL 20 MG INJ (09:04)
--- NOTE | 2020-05-27 09:09 | P.PCN_ITS ---
Date/Time/Diagnoses Date of procedure: 05/27/20 Time of procedure: 09:09 Pre-procedure diagnosis: 1. FACET ARTHROPATHY 2. AXIAL NECK PAIN Post-procedure diagnosis: same Procedure Notes Procedure: 1. FLUOROSCOPICALLY GUIDED, CONTRAST-CONTROLLED RIGHT C5/6 AND C6/7 FACET JOINT INJECTIONS WITH CONSCIOUS SEDATION. Indications: The patient is referred by for treatment of Axial Neck Pain Physician: Nathaniel Maldonado Total Fluoroscopy time (seconds): 6 Total sedation minutes: 11 Complications: none Procedure in detail & Post-procedure care: DESCRIPTION OF PROCEDURE Fluoroscopically guided, contrast-controlled right C5/6 and C6/7 facet joint injections with conscious sedation. Following review of allergy and review of potential side effects and complications, including, but not necessarily limited to, infection, allergic reaction, local tissue breakdown, stroke, temporary or permanent nerve injury and paralysis, the patient indicated that the patient understood and agreed to proceed. An informed consent document was signed by the patient, witnessed by a nurse, and placed in the patient's chart. Additionally, other treatment options including medications, modalities, and physical therapy were reviewed with the patient. After review of previous anaesthesic history and IV conscious sedation the patient was deemed safe to proceed with today?s procedure with IV conscious sedation as ASA class II designation. Safety time-out was performed to confirm patient ID, procedure to be performed and site of procedure. IV sedation was accomplished with a combination of 3mg of Versed and 50mcg of Fentanyl was administered by the RN after DO order, titrated to patient comfort during the course of the procedure while the patient remained responsive to all verbal commands In the prone position, following sterile prep and drape of the cervical spine region, the posterior aspect of the right C5/6 and C6/7 facet joints were identified fluoroscopically. The skin was anesthetized via a 25-gauge 1.5-inch needle with 1% lidocaine solution into the corresponding facet joints. At this point, a 25-gauge 2.5-inch spinal needle was atraumatically introduced and advanced under fluoroscopic guidance into the corresponding facet joints. Following negative aspiration, injections of approximately 0.2-cc of Isovue 200 confirmed interarticular placement without vascular uptake. At this point, a total of 1cc including 0.5cc or 5 mg of dexamethasone combined with 0.5 cc of 0.25% bupivicaine solution was injected without complication into each of the corresponding facet joints. The procedure tolerated the procedure well without signs or symptoms of complications prior to transfer to the recovery area continued monitoring without incident. The patient was then transferred to the recovery area where they were observed for an appropriate period of time after the injection. The patient reported a VAS score of 7 prior to the procedure and a post- procedure VAS of 0. POST OP INSTRUCTIONS They were provided a Pain Log to continue to record their response to the target-specific procedure prior to their follow-up visit with their referring physician. Additionally, specific post-injection care instructions and a contact number to our office were provided if concerns arise regarding possible complications associated with the procedure are suspected.
== END 2020-05-27 09:36 | disposition home or self-care (01) ==
LOC: RAD 08:08
PROVIDERS: Family Provider Family Medicine; PCP Family Medicine; Referring Provider Family Medicine; Visit Provider Physical Medicine & Rehabilitation
DX: M47.812 Spondylosis without myelopathy or radiculopathy, cervical region (principal); M54.2 Cervicalgia
CPT/HCPCS: 64490; 64491; 99152; J1100; J2250; J3010

== ENCOUNTER → 2020-06-11 16:26 | Outpatient (CLI) | payer MEDICARE, OTHER, SELFPAY ==
--- NOTE | 2020-06-11 16:30 | DI.RAD.S_ITS ---
PROCEDURE: XR FOOT LT MIN 3V INDICATIONS: Left 5th toe disfunction TECHNIQUE: 3 views of the foot were acquired. COMPARISON: [facility], CR, XR FOOT 3+ VIEWS LEFT, 05/05/2019, 12:38. FINDINGS: Bones: No fractures. No suspicious bony lesions. There is mild subluxation at the 5th DIP joint. Soft tissues: No tibiotalar joint effusion. Achilles tendon appears normal. IMPRESSION: Mild subluxation of the 5th DIP joint. Dictated by: Jaja White M.D. on 06/11/2020 at 17:16 Approved by: Jaja White M.D. on 06/11/2020 at 17:17
--- NOTE | 2020-06-11 16:30 | DI.RAD.S_ITS ---
PROCEDURE: XR HAND LT MIN 3V INDICATIONS: Left pisiform tenderness TECHNIQUE: 3 views of the hand(s) acquired. COMPARISON: [facility], , HAND 3V LEFT, 05/10/2017, 17:13. FINDINGS: Bones: No acute fractures or dislocations. Carpal bones are normally aligned. No suspicious bony lesions. IP degenerative narrowing is present. Old distal 4th and 5th metacarpal fractures. Soft tissues: No suspicious soft tissue calcifications. IMPRESSION: No visualized acute fracture or dislocation. However, if clinical concern and/or pain persist, short interval imaging followup in 7-10 days is recommended, as occult injury cannot be definitively excluded. Dictated by: Jaja White M.D. on 06/11/2020 at 17:15 Approved by: Jaja White M.D. on 06/11/2020 at 17:16
--- NOTE | 2020-06-11 16:30 | DI.RAD.S_ITS ---
PROCEDURE: XR HAND RT MIN 3V INDICATIONS: Trigger finger TECHNIQUE: 3 views of the hand(s) acquired. COMPARISON: [facility], , HAND 3V LEFT, 05/10/2017, 17:13. FINDINGS: Bones: No fractures or dislocations. Carpal bones are normally aligned. No suspicious bony lesions. Scattered IP degenerative narrowing is present. Soft tissues: No suspicious soft tissue calcifications. IMPRESSION: Scattered IP degenerative narrowing. Dictated by: Jaja White M.D. on 06/11/2020 at 17:13 Approved by: Jaja White M.D. on 06/11/2020 at 17:15
== END ==
PROVIDERS: Family Provider Family Medicine; Referring Provider Physical Medicine & Rehabilitation; Visit Provider Physical Medicine & Rehabilitation
DX: S93.135A Subluxation of interphalangeal joint of left lesser toe(s), initial encounter (principal); S63.90XA Sprain of unspecified part of unspecified wrist and hand, initial encounter; M65.30 Trigger finger, unspecified finger; M50.11 Cervical disc disorder with radiculopathy, high cervical region; M51.26 Other intervertebral disc displacement, lumbar region; X58.XXXA Exposure to other specified factors, initial encounter
CPT/HCPCS: 73130; 73630; 99215

== ENCOUNTER → 2020-10-06 16:39 | Outpatient (CLI) | payer MEDICARE, SELFPAY ==
[2020-10-06 18:02] LABS: BUN Creatinine Ratio 23.7 (6-22); Blood Urea Nitrogen 22 mg/dL (9-20); Calcium 8.9 mg/dL (8.4-10.2); Carbon Dioxide 32 mmol/L (22-32); Chloride 101 mmol/L (98-107); Estimated Glomerular Filt Rate > 60.0 mL/min (>60); Glucose 103 mg/dL (80-110); HEMOLYSIS < 15 (0-50); Sodium 137 mmol/L (137-145)
== END ==
PROVIDERS: PCP Student in an Organized Health Care Education/Training Program; Referring Provider Student in an Organized Health Care Education/Training Program; Visit Provider Student in an Organized Health Care Education/Training Program
DX: I10 Essential (primary) hypertension (principal)
CPT/HCPCS: 36415; 80048

== ENCOUNTER 2021-12-05 10:45 | Emergency (ER) | payer OTHER, SELFPAY ==
[2021-12-05] VITALS (8 sets, daily range): BP systolic 106–132; BP diastolic 61–84; PULSE 58–75; RESP 15–21; TEMP 36.5; O2SAT 93–100; BMI 31.3
[2021-12-05 11:17] LABS: COVID19 -Nasal RAPID Negative (Negative)
[2021-12-05] MEDS: KETOROLAC 30 MG/ML VIAL 15 MG IV (11:41)
[2021-12-05 11:44] LABS: Add Manual Diff / Slide Review NO; Basophils Absolute Auto 0 /uL (0-100); Basophils Percent Auto 0.9 % (0-2); Eosinophils Absolute Auto 100 /uL (0-450); Eosinophils Percent Auto 2.9 % (2-4); Hematocrit 40.3 % (41-53); Hemoglobin 13.5 g/dL (13.5-17.5); Lymphocytes Absolute Auto 1200 /uL (1100-4500); Lymphocytes Percent Auto 24.3 % (25-40); Mean Corpuscular HGB Conc 33.5 % (30-36); Mean Corpuscular Volume 92.4 fL (80-100); Monocytes Absolute Auto 500 /uL (0-900); Monocytes Percent Auto 10.5 % (3-14); Neutrophils Absolute Auto 3000 /uL (1500-7000); Neutrophils Percent Auto 61.4 % (50-75); Platelet Count 157 X10^3/uL (150-400); Red Blood Cell Count 4.37 X10^6/uL (4.5-5.9); Red Cell Distribution Width 13.2 % (11.6-14.8); White Blood Cell Count 4.9 X10^3/uL (4.5-11.0)
[2021-12-05 11:49] LABS: Alanine Aminotransferase 25 IU/L (<50); Albumin 4.4 g/dL (3.5-5.0); Albumin Globulin Ratio 1.5 (1.0-2.8); Alkaline Phosphatase 70 U/L (38-126); Aspartate Aminotransferase 30 IU/L (17-59); BUN Creatinine Ratio 23.1 (6-22); Bilirubin Total 0.3 mg/dL (0.2-1.3); Blood Urea Nitrogen 24 mg/dL (9-20); Calcium 9.2 mg/dL (8.4-10.2); Carbon Dioxide 32 mmol/L (22-32); Chloride 103 mmol/L (98-107); Estimated Glomerular Filt Rate > 60 mL/min (>60); Glucose 115 mg/dL (80-110); HEMOLYSIS < 15 (0-50); Potassium 3.7 mmol/L (3.4-5.1); Sodium 141 mmol/L (137-145); Total Protein 7.4 g/dL (6.3-8.2)
--- NOTE | 2021-12-05 12:28 | ED_ITS ---
HPI - General Adult General Chief complaint: Shortness of Breath/Dyspnea Stated complaint: Trouble breathing, kidneys hurt Time Seen by Provider: 12/05/21 10:58 Source: patient Mode of arrival: Family Vehicle History of Present Illness HPI narrative: 71-year-old gentleman with history of narcolepsy, anxiety and depression, hypertension presents with 3 days of myalgias, significant fatigue, dizzy lightheadedness and complaints of throat pain and anterior cervical adenopathy. Notes some upper chest/neck tightness and a mild cough. Some nasal congestion peripheral tingling in fingers and toes and today's noticed some kidney/flank pain bilaterally. He notes that about a week and a half ago he was at a retreat with about 20 other people all of whom have come down with similar viral symptoms none of whom required medical attention and all of whom have continued to test negative for COVID. Related Data Home Medications Medication Instructions Recorded Confirmed epinephrine 0.3 mg/0.3 mL 1 dose IM PRN PRN #0 04/14/16 01/28/21 injection, auto-injector buspirone 10 mg tablet 10 mg PO TID 08/09/18 01/28/21 trazodone 50 mg tablet 50 mg PO BEDTIME 08/09/18 01/28/21 ResMed AirSense 10 CPAP #1 ea 10/24/18 01/28/21 pramipexole 0.5 mg tablet 0.5 mg PO QPM 03/20/19 01/28/21 acetaminophen 500 mg tablet 500 mg PO QID PRN 01/07/20 01/28/21 (Tylenol Extra Strength) armodafinil 200 mg tablet 100 mg PO .noon tab 01/07/20 01/28/21 omeprazole 20 mg capsule,delayed 20 mg PO BID cap 01/07/20 01/28/21 release flunisolide 25 mcg (0.025 %) nasal 2 spray NASAL BID 01/30/20 01/28/21 spray cholecalciferol (vitamin D3) 50 1,000 unit PO DAILY cap 02/27/20 01/28/21 mcg (2,000 unit) capsule (Vitamin D3) methocarbamol 500 mg tablet 500 mg PO BID tab 04/23/20 01/28/21 hydroxyzine HCl 25 mg tablet 25 mg PO QID PRN 10/06/20 01/28/21 solriamfetol 150 mg tablet 150 mg PO DAILY 11/18/20 01/28/21 amlodipine 5 mg tablet 5 mg PO DAILY 05/11/21 05/11/21 solriamfetol 150 mg tablet 150 mg PO DAILY 05/11/21 05/11/21 Previous Rx's Medication Instructions Recorded lisinopril 20 mg tablet 20 mg PO DAILY #90 tab 10/10/20 armodafinil 200 mg tablet 200 mg PO DAILY #21 tab 08/26/21 Allergies Allergy/AdvReac Type Severity Reaction Status Date / Time doxycycline [DOXYCYCLINE] Allergy Severe Anaphylaxis Verified 01/28/21 11:56 guaifenesin [GUAIFENESIN] Allergy Severe Throat Verified 01/28/21 11:56 swelling methylphenidate Allergy Severe Suicidal Verified 01/28/21 11:56 [METHYLPHENIDATE] ideation pemoline [From Cylert] Allergy Severe Swelling, Verified 01/28/21 11:56 suicidal ideation Penicillins [PENICILLINS] Allergy Severe Stiffens Verified 01/28/21 11:56 like a board and fell flat on his face pseudoephedrine Allergy Severe Throat Verified 01/28/21 11:56 [PSEUDOEPHEDRINE] swelling soy [SOY] Allergy Severe Anaphylaxis, Verified 01/28/21 11:56 diarrhea, swelling venom-honey bee Allergy Severe Anaphylaxis Verified 01/28/21 11:56 [BEE VENOM (HONEY BEE)] pneumococcal vaccine Allergy Mild Localized Verified 01/28/21 11:56 [From PNEUMOVAX 23] swelling, redness prazosin [PRAZOSIN] Allergy Unknown Unknown Verified 01/28/21 11:56 adhesive [ADHESIVE] AdvReac Intermediate Pulled Verified 01/28/21 11:56 skin off with removal gluten [GLUTEN] AdvReac Intermediate Celiac Verified 01/28/21 11:56 Disease lactose [LACTOSE] AdvReac Unknown GI upset, Verified 01/28/21 11:56 diarrhea Lettuce AdvReac Severe Anaphylactic Uncoded 01/28/21 11:56 Shock Review of Systems Review of Systems Narrative: Remainder of complete review of systems is otherwise unremarkable except for that included in the HPI. Patient History Medical History Abdominal aortic aneurysm (~05/28/14) Alcoholism in remission Allergic rhinitis Anxiety (~1994) Arthritis Cataplexy Celiac disease Cerumen impaction Cervical disc disorder Cervical disc disorder with radiculopathy, high cervical region Chicken pox (~1955) Chronic sinusitis Depression (~1994) Diverticulitis (~1998) Diverticulosis Essential hypertension Facet arthropathy, cervical Former smoker Fracture of fifth metacarpal bone of left hand Fracture of fourth metacarpal bone of left hand GERD (gastroesophageal reflux disease) (~1995) Hearing loss History of pneumonia HNP (herniated nucleus pulposus), cervical Hyperlipemia (~08/31/12) Hypertension (~12/12/12) Impaired vision Malaria (~1968) Measles (~1952) MRSA (methicillin resistant Staphylococcus aureus) (~1996) Mumps (~1956) Murmur Narcolepsy (~1994) Nephrolithiasis Neuropathy Obesity (BMI 30-39.9) Obstructive sleep apnea [place] neutrophil abnormality PTSD (post-traumatic stress disorder) (~1969) Rheumatic fever (~1953) RLS (restless legs syndrome) (~2007) Sacral dysfunction Sinus drainage Sleep apnea (~1994) Syphilis (~1967) TIA (transient ischemic attack) Surgical History Anesthesia H/O rhinoplasty H/O right inguinal hernia repair Hx of nasal septoplasty Hx of tonsillectomy (~1955) Family History Brother Heart disease Diabetes mellitus Father Cancer Mother Mental health problem Grandfather Phlebitis Social History marital status: household members: spouse ( is disabled) occupational status: previously employed Smoking Status: Former smoker alcohol intake: never substance use type: does not use Smoking Status: Former smoker alcohol intake frequency: 0-2 drinks per day Substance Use Type: does not use Exam Initial Vital Signs Initial Vital Signs: Vital Signs Pulse Rate 69 12/05/21 10:56 Blood Pressure 124/66 12/05/21 10:56 Pulse Oximetry 99 12/05/21 10:56 General: Healthy appearing, in no acute distress. Able to give a complete and coherent history. Well-nourished well-developed HEENT: Moist mucous membranes, normal sclera with reactive pupils, mild anterior cervical adenopathy bilaterally, minimally erythematous posterior ph arynx without exudate Neck: No JVD, supple Respiratory: Lungs are clear to auscultation, no wheezing no rales no rhonchi. Full and symmetrical air movement Cardiac: Regular rate and rhythm no murmurs no bruits Abdomen: Soft, nontender, good bowel tones, no flank pain Skin: Warm and dry, no rashes Neurologic: Grossly neurologically intact with no obvious asymmetries or abnormalities Extremities: No trauma, well perfused Psych: Cooperative, appropriate insight and affect Course Orders Ordered: ED Orders 12/05/21 11:00 COVID19 -Nasal RAPID/Pre-Proc Stat 12/05/21 11:10 Complete Blood Count AUTO DIFF Stat Comprehensive Metabolic Panel Stat 12/05/21 11:45 Respiratory Panel (Film Array) Stat Discontinued Medications Ketorolac Tromethamine (Ketorolac 30 Mg/Ml Vial) 15 mg IV NOW ONE Stop: 12/05/21 11:30 Last Admin: 12/05/21 11:41 Dose: 15 mg Documented by: ADE Vital Signs Vital signs: Vital Signs - 8 hr 12/05/21 10:56 12/05/21 11:00 12/05/21 11:30 Temperature 97.7 F Pulse Rate 69 75 63 Respiratory Rate 21 Blood Pressure 124/66 129/73 Pulse Oximetry 99 99 97 12/05/21 11:32 12/05/21 12:00 12/05/21 12:30 Temperature Pulse Rate 62 65 63 Respiratory Rate 15 18 18 Blood Pressure 109/61 106/84 Pulse Oximetry 96 95 95 12/05/21 13:00 Temperature Pulse Rate 58 L Respiratory Rate 15 Blood Pressure 119/70 Pulse Oximetry 93 Medical Decision Making Lab Data Result diagrams: 12/05/21 11:10 12/05/21 11:10 Labs: Lab Results 12/05/21 12/05/21 12/05/21 Range/Units 11:00 11:10 11:10 WBC 4.9 (4.5-11.0) X10^3/uL RBC 4.37 L (4.5-5.9) X10^6/uL Hgb 13.5 (13.5-17.5) g/dL Hct 40.3 L (41-53) % MCV 92.4 (80-100) fL MCH 31.0 (26-34) PG MCHC 33.5 (30-36) % RDW 13.2 (11.6-14.8) % Plt Count 157 (150-400) X10^3/uL Neut % (Auto) 61.4 (50-75) % Lymph % (Auto) 24.3 L (25-40) % [place] % (Auto) 10.5 (3-14) % Eos % (Auto) 2.9 (2-4) % Baso % (Auto) 0.9 (0-2) % Neut # (Auto) 3000 (4346-6008) /uL Lymph # (Auto) 1200 (3255-0776) /uL [place] # (Auto) 500 (0-900) /uL Eos # (Auto) 100 (0-450) /uL Baso # (Auto) 0 (0-100) /uL Sodium 141 (137-145) mmol/L Potassium 3.7 (3.4-5.1) mmol/L Chloride 103 (98-107) mmol/L Carbon Dioxide 32 (22-32) mmol/L BUN 24 H (9-20) mg/dL Creatinine 1.04 (0.66-1.25) mg/dL Estimated GFR > 60 (>60) mL/min BUN/Creatinine Ratio 23.1 H (6-22) Glucose 115 H (80-110) mg/dL Calcium 9.2 (8.4-10.2) mg/dL Total Bilirubin 0.3 (0.2-1.3) mg/dL AST 30 (17-59) IU/L ALT 25 (<50) IU/L Alkaline Phosphatase 70 (38-126) U/L Total Protein 7.4 (6.3-8.2) g/dL Albumin 4.4 (3.5-5.0) g/dL Globulin 3.0 (1.7-4.1) g/dL Albumin/Globulin Ratio 1.5 (1.0-2.8) Chlamy pneumoniae PCR (Not Detect) Adenovirus (PCR) (Not Detect) B. pertussis DNA (PCR) (Not Detecte) B.parapertussis DNA PCR (Not Detecte) Coronavirus OC43 (PCR) (Not Detect) Coronavirus HKU1 (PCR) (Not Detect) Coronavirus 229E (PCR) (Not Detect) SARS-CoV-2 (PCR) Negative (Negative) Coronavirus NL63 (PCR) (Not Detect) Human Metapneumovir PCR (Not Detect) Influenza Type A (PCR) (Not Detect) Influenza Type B (PCR) (Not Detect) M. pneumoniae (PCR) (Not Detect) Parainfluenza 1 (PCR) (Not Detect) Parainfluenza 2 (PCR) (Not Detect) Parainfluenza 3 (PCR) (Not Detect) Parainfluenza 4 (PCR) (Not Detect) RSV (PCR) (Not Detect) Entero/Rhino (PCR) (Not Detect) 12/05/21 Range/Units 11:45 WBC (4.5-11.0) X10^3/uL RBC (4.5-5.9) X10^6/uL Hgb (13.5-17.5) g/dL Hct (41-53) % MCV (80-100) fL MCH (26-34) PG MCHC (30-36) % RDW (11.6-14.8) % Plt Count (150-400) X10^3/uL Neut % (Auto) (50-75) % Lymph % (Auto) (25-40) % [place] % (Auto) (3-14) % Eos % (Auto) (2-4) % Baso % (Auto) (0-2) % Neut # (Auto) (6160-8092) /uL Lymph # (Auto) (1616-5564) /uL [place] # (Auto) (0-900) /uL Eos # (Auto) (0-450) /uL Baso # (Auto) (0-100) /uL Sodium (137-145) mmol/L Potassium (3.4-5.1) mmol/L Chloride (98-107) mmol/L Carbon Dioxide (22-32) mmol/L BUN (9-20) mg/dL Creatinine (0.66-1.25) mg/dL Estimated GFR (>60) mL/min BUN/Creatinine Ratio (6-22) Glucose (80-110) mg/dL Calcium (8.4-10.2) mg/dL Total Bilirubin (0.2-1.3) mg/dL AST (17-59) IU/L ALT (<50) IU/L Alkaline Phosphatase (38-126) U/L Total Protein (6.3-8.2) g/dL Albumin (3.5-5.0) g/dL Globulin (1.7-4.1) g/dL Albumin/Globulin Ratio (1.0-2.8) Chlamy pneumoniae PCR Not detected (Not Detect) Adenovirus (PCR) Not detected (Not Detect) B. pertussis DNA (PCR) Not detected (Not Detecte) B.parapertussis DNA PCR Not detected (Not Detecte) Coronavirus OC43 (PCR) Not detected (Not Detect) Coronavirus HKU1 (PCR) Not detected (Not Detect) Coronavirus 229E (PCR) Not detected (Not Detect) SARS-CoV-2 (PCR) Not detected (Negative) Coronavirus NL63 (PCR) Not detected (Not Detect) Human Metapneumovir PCR Not detected (Not Detect) Influenza Type A (PCR) Not detected (Not Detect) Influenza Type B (PCR) Not detected (Not Detect) M. pneumoniae (PCR) Not detected (Not Detect) Parainfluenza 1 (PCR) Not detected (Not Detect) Parainfluenza 2 (PCR) Not detected (Not Detect) Parainfluenza 3 (PCR) Not detected (Not Detect) Parainfluenza 4 (PCR) Not detected (Not Detect) RSV (PCR) Not detected (Not Detect) Entero/Rhino (PCR) Not detected (Not Detect) Point of Care Testing Rapid Strep A Negative Point of care testing: Point of Care Testing Rapid Strep A Negative MDM Narrative Medical decision making narrative: 71-year-old gentleman presents with myalgias and increasing fatigue for the last 72 hours. Workup is entirely reassuring. No suggestion of bacterial infection or sepsis. No evidence of strep throat. Respiratory panel is unremarkable. All of his symptoms are most consistent at this point with viral etiology of uncertain type. There is no evidence of significant electrolyte abnormalities, kidney failure or liver abnormalities. He is not toxic, reassurance is given he is safe for home discharge. Discharge Plan Departure Patient Disposition: Home Clinical Impression: Acute viral syndrome Instructions: DI for Viral Upper Respiratory Infection -- Adult Activity Restrictions/Additional Instructions: Thank you for coming in today It sounds like you have the same virus that everybody else caught at your recent retreat. The respiratory panel that we did today looking at approximately 20 different viruses did not specify which 1 you might have. With your increasing fatigue and the overall muscle aching your symptoms are very much viral. Your blood work does not suggest any bacterial super infection and there is no evidence of strep throat. Your kidney function and electrolytes are all reassuring we normal. At this point, time is what you need to begin feeling better. I encourage you to keep well hydrated. If you feel like you are getting worse or developing new symptoms please feel free to return to the emergency department Prescriptions: No Action epinephrine 0.3 MG/0.3 ML auto-injector 1 dose IM PRN PRN (Reason: Allergic Reaction) Qty: 0 0RF Label Comments: hasn't needed to use lisinopril 20 mg tablet 20 mg PO DAILY Qty: 90 0RF solriamfetol 150 mg tablet 150 mg PO DAILY 0RF Rx Instructions: 75mg PO daily for 7 days, then increase to 150mg PO daily armodafinil 200 mg tablet 200 mg PO DAILY Qty: 21 0RF hydroxyzine HCl 25 mg tablet 25 mg PO QID PRN0RF amlodipine 5 mg tablet 5 mg PO DAILY 0RF solriamfetol 150 mg tablet 150 mg PO DAILY 0RF flunisolide 25 mcg (0.025 %) spray,non-aerosol 2 spray NASAL BID 0RF buspirone 10 mg Tablet 10 mg PO TID 0RF trazodone 50 mg Tablet 50 mg PO BEDTIME 0RF Label Comments: med list states various doses over the years. armodafinil 200 mg tablet 100 mg PO .noon 0RF Label Comments: takes at noon omeprazole 20 mg capsule,delayed release(DR/EC) 20 mg PO BID 0RF cholecalciferol (vitamin D3) [Vitamin D3] 50 mcg (2,000 unit) capsule 1,000 unit PO DAILY 0RF Label Comments: takes at noon pramipexole 0.5 mg Tablet 0.5 mg PO QPM 0RF acetaminophen [Tylenol Extra Strength] 500 mg tablet 500 mg PO QID PRN0RF methocarbamol 500 mg tablet 500 mg PO BID 0RF (DME) ResMed AirSense 10 CPAP Qty: 1 0RF Dose Instruction: As directed Label Comments: Pressure: 12-18 cmH2O DME: [facility] Rx Instructions: As directed Referrals: Cliff Prasad MD [Primary Care Provider] -
[2021-12-05 13:14] LABS: Adenovirus Not Detected (Not Detect); B. parapertussis Not Detected (Not Detecte); Bordetella pertussis Not Detected (Not Detecte); Chlamydophila pneumoniae Not Detected (Not Detect); Coronavirus 229E Not Detected (Not Detect); Coronavirus HKU1 Not Detected (Not Detect); Coronavirus NL 63 Not Detected (Not Detect); Coronavirus OC43 Not Detected (Not Detect); Human Metapneumovirus Not Detected (Not Detect); Human Rhinovirus/Enterovirus Not Detected (Not Detect); Influenza A Not Detected (Not Detect); Influenza B Not Detected (Not Detect); Mycoplasma pneumoniae Not Detected (Not Detect); Parainfluenza Virus 1 Not Detected (Not Detect); Parainfluenza Virus 2 Not Detected (Not Detect); Parainfluenza Virus 3 Not Detected (Not Detect); Parainfluenza Virus 4 Not Detected (Not Detect); Respiratory Syncytial Virus Not Detected (Not Detect); SARS- CoV-2 Not Detected (Not Detecte)
== END 2021-12-05 14:20 | disposition home or self-care (01) ==
PROVIDERS: Emergency Provider Emergency Medicine; PCP Student in an Organized Health Care Education/Training Program
DX: B34.9 Viral infection, unspecified (principal); Z87.891 Personal history of nicotine dependence; Z20.822 Contact with and (suspected) exposure to COVID-19
CPT/HCPCS: 80053; 85025; 87633; 87635; 87880; 93005; 96374; 99284; C9803; J1885

== ENCOUNTER 2022-02-13 11:13 | Emergency (ER) | payer MEDICARE, SELFPAY ==
[2022-02-13] VITALS (9 sets, daily range): BP systolic 111–134; BP diastolic 63–77; PULSE 60–75; RESP 11–22; TEMP 36.5; O2SAT 95–99; BMI 31.4
--- NOTE | 2022-02-13 11:28 | DI.RAD.S_ITS ---
PROCEDURE: XR CHEST 2V INDICATIONS: shortness of breath TECHNIQUE: 2 views of the chest were acquired. COMPARISON: [facility], CR, XR CHEST 2 VIEWS, 04/29/2021, 12:41. [facility], CR, XR CHEST 1V, 03/08/2020, 14:13. FINDINGS: Surgical changes and devices: None. Overlying EKG wires Lungs and pleura: Lungs are clear. No pleural effusions or pneumothorax. Mediastinum: Tortuous course of the thoracic aorta is again noted. Heart size is normal. Bones and chest wall: No suspicious bony abnormalities. Soft tissues appear unremarkable. IMPRESSION: No evidence of an acute cardiopulmonary abnormality. Dictated by: Nils Gordon D.O. on 02/13/2022 at 10:43 Approved by: Nils Gordon D.O. on 02/13/2022 at 10:46
--- NOTE | 2022-02-13 11:41 | PC.NURSE ---
Addendum entered by Leigh Ann Knox R.N. 02/13/22 11:54: 1148: Pt reports I actually did change my medications. He reports going off 10 mg of atorvastatin 4 weeks prior then restarting it on Tuesday, 02/07. Pt reports he went off it due to muscle aches and feeling similar to today. Original Note: Pt reports generalized weakness, SOB, dizziness, fatigue, blurred vision, and feeling like my muscles are burning since yesterday. Pt reports sleeping all day yesterday after some light physical activity. Pt denies chest pain, LOC, blood thinners, or any change in medication.
[2022-02-13 11:50] LABS: COVID19 -Nasal RAPID Negative (Negative)
[2022-02-13 12:05] LABS: Add Manual Diff / Slide Review NO; Basophils Absolute Auto 0 /uL (0-100); Eosinophils Absolute Auto 100 /uL (0-450); Eosinophils Percent Auto 2.6 % (2-4); Hematocrit 39.4 % (41-53); Hemoglobin 13.5 g/dL (13.5-17.5); Lymphocytes Absolute Auto 900 /uL (1100-4500); Lymphocytes Percent Auto 18.2 % (25-40); Mean Corpuscular HGB Conc 34.2 % (30-36); Mean Corpuscular Hemoglobin 31.2 PG (26-34); Mean Corpuscular Volume 91.4 fL (80-100); Monocytes Absolute Auto 500 /uL (0-900); Monocytes Percent Auto 10.3 % (3-14); Neutrophils Absolute Auto 3400 /uL (1500-7000); Neutrophils Percent Auto 67.9 % (50-75); Platelet Count 156 X10^3/uL (150-400); Red Blood Cell Count 4.31 X10^6/uL (4.5-5.9); Red Cell Distribution Width 13.4 % (11.6-14.8)
[2022-02-13 12:17] LABS: Alanine Aminotransferase 25 IU/L (<50); Albumin 4.1 g/dL (3.5-5.0); Albumin Globulin Ratio 1.4 (1.0-2.8); Alkaline Phosphatase 74 U/L (38-126); Aspartate Aminotransferase 30 IU/L (17-59); Bilirubin Total 0.4 mg/dL (0.2-1.3); Blood Urea Nitrogen 30 mg/dL (9-20); Calcium 8.6 mg/dL (8.4-10.2); Carbon Dioxide 31 mmol/L (22-32); Chloride 100 mmol/L (98-107); Estimated Glomerular Filt Rate > 60 mL/min (>60); Globulin 2.9 g/dL (1.7-4.1); Glucose 110 mg/dL (80-110); HEMOLYSIS < 15 (0-50); Sodium 136 mmol/L (137-145)
--- NOTE | 2022-02-13 12:21 | ED_ITS ---
HPI - General Adult General Chief complaint: Shortness of Breath/Dyspnea Stated complaint: SOB Time Seen by Provider: 02/13/22 12:02 Source: patient Mode of arrival: EMS History of Present Illness HPI narrative: Patient is a 71-year-old male who is here for evaluation of a couple days of muscle aches and muscle burning and fatigue and some shortness of breath. He states that the symptoms started shortly after starting a new cholesterol medication. He has been on this medication in the past that is cause similar symptoms. He came off the medicine and the symptoms improved however his primary doctor wanted to try him on it again. He denies chest pain. No fevers. No abdominal pain. No nausea vomiting. No rashes. Earlier today he was feeling so fatigued and weak that he had difficulty getting off of the couch which is why EMS was called. No recent travel. Related Data Home Medications Medication Instructions Recorded Confirmed epinephrine 0.3 mg/0.3 mL 1 dose IM PRN PRN Allergic 04/14/16 01/28/21 injection, auto-injector Reaction ##0 buspirone 10 mg tablet 10 mg PO TID 08/09/18 01/28/21 trazodone 50 mg tablet 50 mg PO BEDTIME 08/09/18 01/28/21 ResMed AirSense 10 CPAP #1 ea 10/24/18 01/28/21 pramipexole 0.5 mg tablet 0.5 mg PO QPM 03/20/19 01/28/21 acetaminophen 500 mg tablet 500 mg PO QID PRN 01/07/20 01/28/21 (Tylenol Extra Strength) armodafinil 200 mg tablet 100 mg PO .noon 01/07/20 01/28/21 omeprazole 20 mg capsule,delayed 20 mg PO BID 01/07/20 01/28/21 release flunisolide 25 mcg (0.025 %) nasal 2 spray intranasal BID 01/30/20 01/28/21 spray cholecalciferol (vitamin D3) 50 1,000 unit PO DAILY 02/27/20 01/28/21 mcg (2,000 unit) capsule (Vitamin D3) methocarbamol 500 mg tablet 500 mg PO BID 04/23/20 01/28/21 hydroxyzine HCl 25 mg tablet 25 mg PO QID PRN 10/06/20 01/28/21 solriamfetol 150 mg tablet 150 mg PO DAILY 11/18/20 01/28/21 amlodipine 5 mg tablet 5 mg PO DAILY 05/11/21 05/11/21 solriamfetol 150 mg tablet 150 mg PO DAILY 05/11/21 05/11/21 Previous Rx's Medication Instructions Recorded lisinopril 20 mg tablet 20 mg PO DAILY #90 tabs 10/10/20 armodafinil 200 mg tablet 200 mg PO DAILY #21 tabs 08/26/21 Allergies Allergy/AdvReac Type Severity Reaction Status Date / Time doxycycline [DOXYCYCLINE] Allergy Severe Anaphylaxis Verified 01/28/21 11:56 guaifenesin [GUAIFENESIN] Allergy Severe Throat Verified 01/28/21 11:56 swelling methylphenidate Allergy Severe Suicidal Verified 01/28/21 11:56 [METHYLPHENIDATE] ideation pemoline [From Cylert] Allergy Severe Swelling, Verified 01/28/21 11:56 suicidal ideation Penicillins [PENICILLINS] Allergy Severe Stiffens Verified 01/28/21 11:56 like a board and fell flat on his face pseudoephedrine Allergy Severe Throat Verified 01/28/21 11:56 [PSEUDOEPHEDRINE] swelling soy [SOY] Allergy Severe Anaphylaxis, Verified 01/28/21 11:56 diarrhea, swelling venom-honey bee Allergy Severe Anaphylaxis Verified 01/28/21 11:56 [BEE VENOM (HONEY BEE)] pneumococcal vaccine Allergy Mild Localized Verified 01/28/21 11:56 [From PNEUMOVAX 23] swelling, redness prazosin [PRAZOSIN] Allergy Unknown Unknown Verified 01/28/21 11:56 adhesive [ADHESIVE] AdvReac Intermediate Pulled Verified 01/28/21 11:56 skin off with removal gluten [GLUTEN] AdvReac Intermediate Celiac Verified 01/28/21 11:56 Disease lactose [LACTOSE] AdvReac Unknown GI upset, Verified 01/28/21 11:56 diarrhea Lettuce AdvReac Severe Anaphylactic Uncoded 01/28/21 11:56 Shock Review of Systems Review of Systems ROS Unobtainable: All systems reviewed & are unremarkable except as noted in HPI and below Patient History Medical History Abdominal aortic aneurysm (~05/28/14) Alcoholism in remission Allergic rhinitis Anxiety (~1994) Arthritis Cataplexy Celiac disease Cerumen impaction Cervical disc disorder Cervical disc disorder with radiculopathy, high cervical region Chicken pox (~1955) Chronic sinusitis Depression (~1994) Diverticulitis (~1998) Diverticulosis Essential hypertension Facet arthropathy, cervical Former smoker Fracture of fifth metacarpal bone of left hand Fracture of fourth metacarpal bone of left hand GERD (gastroesophageal reflux disease) (~1995) Hearing loss History of pneumonia HNP (herniated nucleus pulposus), cervical Hyperlipemia (~08/31/12) Hypertension (~12/12/12) Impaired vision Malaria (~1968) Measles (~1952) MRSA (methicillin resistant Staphylococcus aureus) (~1996) Mumps (~1956) Murmur Narcolepsy (~1994) Nephrolithiasis Neuropathy Obesity (BMI 30-39.9) Obstructive sleep apnea Uitkyj-Yfrlby-Izcj neutrophil abnormality PTSD (post-traumatic stress disorder) (~1969) Rheumatic fever (~1953) RLS (restless legs syndrome) (~2007) Sacral dysfunction Sinus drainage Sleep apnea (~1994) Syphilis (~1967) TIA (transient ischemic attack) Surgical History Anesthesia H/O rhinoplasty H/O right inguinal hernia repair Hx of nasal septoplasty Hx of tonsillectomy (~1955) Family History Brother Heart disease Diabetes mellitus Father Cancer Mother Mental health problem Grandfather Phlebitis Social History marital status: household members: spouse ( is disabled) occupational status: previously employed Smoking Status: Former smoker alcohol intake: never substance use type: does not use Smoking Status: Former smoker alcohol intake frequency: 0-2 drinks per day Substance Use Type: does not use Exam Initial Vital Signs Initial Vital Signs: Vital Signs Pulse Rate 69 02/13/22 11:14 Pulse Oximetry 98 02/13/22 11:14 Const General: cooperative and comfortable HENMT Head: normal to inspection and normocephalic Resp Effort & Inspection: normal respiratory effort Auscultation: clear to auscultation bilaterally Cardio Rate: regular rate Rhythm: regular rhythm GI Inspection: normal to inspection Skin General: no rashes or lesions noted Neuro General: patient alert, patient awake, patient oriented x3 and moves all e xtremities Extrem General: normal to inspection and capillary refill normal Psych Appearance: grossly normal and well kempt Course Orders Ordered: ED Orders 02/13/22 11:17 COVID19 -Nasal RAPID/Pre-Proc Stat 02/13/22 11:28 XR chest 2V Stat EKG-12 Lead Stat Measure peak expiratory flow ONCE RT Consult Eval and Treat Now 02/13/22 11:48 Complete Blood Count AUTO DIFF Stat Comprehensive Metabolic Panel Stat Lactate (Lactic Acid) Stat 02/13/22 12:25 Covid-19 + FLU A/B by PCR Stat Vital Signs Vital signs: Vital Signs - 8 hr 02/13/22 11:21 02/13/22 11:14 02/13/22 11:15 Temperature 97.7 F Pulse Rate 64 69 Respiratory Rate 18 Blood Pressure 133/77 133/77 Pulse Oximetry 99 98 Oxygen Delivery Method Room Air Oxygen Flow Rate 0 02/13/22 11:15 02/13/22 11:30 02/13/22 11:30 Temperature Pulse Rate 66 64 Respiratory Rate 22 Blood Pressure 121/70 Pulse Oximetry 98 96 Oxygen Delivery Method Oxygen Flow Rate 02/13/22 12:00 02/13/22 12:00 02/13/22 12:30 Temperature Pulse Rate 63 Respiratory Rate 11 L Blood Pressure 111/68 125/69 Pulse Oximetry 95 Oxygen Delivery Method Oxygen Flow Rate 02/13/22 12:30 02/13/22 13:00 02/13/22 13:01 Temperature Pulse Rate 69 70 Respiratory Rate 19 Blood Pressure 134/76 Pulse Oximetry 96 95 Oxygen Delivery Method Oxygen Flow Rate 02/13/22 13:01 02/13/22 13:30 02/13/22 13:30 Temperature Pulse Rate 75 60 Respiratory Rate 20 17 Blood Pressure 120/63 Pulse Oximetry 95 95 Oxygen Delivery Method Oxygen Flow Rate Medical Decision Making Lab Data Lab results reviewed: Yes I reviewed the patient's lab results. Result diagrams: 02/13/22 11:48 02/13/22 11:48 Labs: Lab Results 02/13/22 02/13/22 02/13/22 Range/Units 11:17 11:48 11:48 WBC 5.0 (4.5-11.0) X10^3/uL RBC 4.31 L (4.5-5.9) X10^6/uL Hgb 13.5 (13.5-17.5) g/dL Hct 39.4 L (41-53) % MCV 91.4 (80-100) fL MCH 31.2 (26-34) PG MCHC 34.2 (30-36) % RDW 13.4 (11.6-14.8) % Plt Count 156 (150-400) X10^3/uL Neut % (Auto) 67.9 (50-75) % Lymph % (Auto) 18.2 L (25-40) % [place] % (Auto) 10.3 (3-14) % Eos % (Auto) 2.6 (2-4) % Baso % (Auto) 1.0 (0-2) % Neut # (Auto) 3400 (4772-6457) /uL Lymph # (Auto) 900 L (5762-1808) /uL [place] # (Auto) 500 (0-900) /uL Eos # (Auto) 100 (0-450) /uL Baso # (Auto) 0 (0-100) /uL Sodium 136 L (137-145) mmol/L Potassium 4.0 (3.4-5.1) mmol/L Chloride 100 (98-107) mmol/L Carbon Dioxide 31 (22-32) mmol/L BUN 30 H (9-20) mg/dL Creatinine 1.07 (0.66-1.25) mg/dL Estimated GFR > 60 (>60) mL/min BUN/Creatinine Ratio 28.0 H (6-22) Glucose 110 (80-110) mg/dL Lactate (0.7-2.1) mmol/L Calcium 8.6 (8.4-10.2) mg/dL Total Bilirubin 0.4 (0.2-1.3) mg/dL AST 30 (17-59) IU/L ALT 25 (<50) IU/L Alkaline Phosphatase 74 (38-126) U/L Total Protein 7.0 (6.3-8.2) g/dL Albumin 4.1 (3.5-5.0) g/dL Globulin 2.9 (1.7-4.1) g/dL Albumin/Globulin Ratio 1.4 (1.0-2.8) SARS-CoV-2 (PCR) Negative (Negative) Influenza A (RT-PCR) (NEGATIVE) Influenza B (RT-PCR) (NEGATIVE) 02/13/22 02/13/22 Range/Units 11:48 12:25 WBC (4.5-11.0) X10^3/uL RBC (4.5-5.9) X10^6/uL Hgb (13.5-17.5) g/dL Hct (41-53) % MCV (80-100) fL MCH (26-34) PG MCHC (30-36) % RDW (11.6-14.8) % Plt Count (150-400) X10^3/uL Neut % (Auto) (50-75) % Lymph % (Auto) (25-40) % [place] % (Auto) (3-14) % Eos % (Auto) (2-4) % Baso % (Auto) (0-2) % Neut # (Auto) (3068-3719) /uL Lymph # (Auto) (3662-6413) /uL [place] # (Auto) (0-900) /uL Eos # (Auto) (0-450) /uL Baso # (Auto) (0-100) /uL Sodium (137-145) mmol/L Potassium (3.4-5.1) mmol/L Chloride (98-107) mmol/L Carbon Dioxide (22-32) mmol/L BUN (9-20) mg/dL Creatinine (0.66-1.25) mg/dL Estimated GFR (>60) mL/min BUN/Creatinine Ratio (6-22) Glucose (80-110) mg/dL Lactate 1.0 (0.7-2.1) mmol/L Calcium (8.4-10.2) mg/dL Total Bilirubin (0.2-1.3) mg/dL AST (17-59) IU/L ALT (<50) IU/L Alkaline Phosphatase (38-126) U/L Total Protein (6.3-8.2) g/dL Albumin (3.5-5.0) g/dL Globulin (1.7-4.1) g/dL Albumin/Globulin Ratio (1.0-2.8) SARS-CoV-2 (PCR) Negative (Negative) Influenza A (RT-PCR) Flu a negative (NEGATIVE) Influenza B (RT-PCR) Flu b negative (NEGATIVE) Point of Care Testing Glucose POC 129 Point of care testing: Point of Care Testing Glucose POC 129 Imaging Data Chest x-ray: Radiologist's Impression: [address] [address] XRay Report Signed Patient: Sandeep Hopson MR#: [id number] : 1950 Acct:[id number] Age/Sex: 71 / M Date of Service: 02/13/22 Loc: ED Accession Number: [id number] ?? Procedure: XR chest 2V Ordering Provider: Sandeep Stallings D.O. PROCEDURE:? XR CHEST 2V ? INDICATIONS:? shortness of breath ? TECHNIQUE:? 2 views of the chest were acquired.? ? COMPARISON:? [facility], CR, XR CHEST 2 VIEWS, 04/29/2021, 12:41.? [facility], CR, XR CHEST 1V, 03/08/2020, 14:13. ? FINDINGS:? ? Surgical changes and devices:? None.? Overlying EKG wires ? Lungs and pleura:? Lungs are clear.? No pleural effusions or pneumothorax.? ? Mediastinum:? Tortuous course of the thoracic aorta is again noted.? Heart size is normal.? ? Bones and chest wall:? No suspicious bony abnormalities.? Soft tissues appear unremarkable.? ? IMPRESSION:? ? No evidence of an acute cardiopulmonary abnormality. ? ? Dictated by: Nils Gordon D.O. on 02/13/2022 at 10:43 ? ? Approved by: Nils Gordon D.O. on 02/13/2022 at 10:46? ECG Data Attestation: I personally reviewed and interpreted this ECG as follows: Interpretation: Sinus rhythm Ventricular rate is 61 First-degree AV block with a DC interval 212 milliseconds Normal axis Normal QRS Normal QTC No ST T wave changes MDM Narrative Medical decision making narrative: No specific source of infection found. EKG is relatively unremarkable. Chest x-ray is unremarkable. Labs unremarkable. COVID is negative. Flu is negative. Patient is nontoxic appearing. Has a benign exam. It appears that his cholesterol medicine which he has had very similar symptoms like this within the past has reoccurred and I suspect that that is what is causing the symptoms again today. Plan to be is for him to stop this medication. He will contact his primary doctor on Tuesday for follow-up to discuss any new medications. He was given return precautions. He expressed understanding and agreement. Discharge Plan Departure Patient Disposition: Home Clinical Impression: Generalized muscle ache Activity Restrictions/Additional Instructions: I do recommend that you stop the cholesterol medicine like we discussed. Contact your primary doctor to discuss this and to discuss any new medications. Return to the emergency department for any new or worsening symptoms. Prescriptions: No Action epinephrine 0.3 MG/0.3 ML auto-injector 1 dose IM PRN PRN (Reason: Allergic Reaction) Qty: 0 Label Comments: hasn't needed to use lisinopril 20 mg tablet 20 mg PO DAILY Qty: 90 0RF solriamfetol 150 mg tablet 150 mg PO DAILY Rx Instructions: 75mg PO daily for 7 days, then increase to 150mg PO daily armodafinil 200 mg tablet 200 mg PO DAILY Qty: 21 0RF hydroxyzine HCl 25 mg tablet 25 mg PO QID PRN amlodipine 5 mg tablet 5 mg PO DAILY solriamfetol 150 mg tablet 150 mg PO DAILY flunisolide 25 mcg (0.025 %) spray,non-aerosol 2 spray NASAL BID buspirone 10 mg Tablet 10 mg PO TID trazodone 50 mg Tablet 50 mg PO BEDTIME Label Comments: med list states various doses over the years. armodafinil 200 mg tablet 100 mg PO .noon Label Comments: takes at noon omeprazole 20 mg capsule,delayed release(DR/EC) 20 mg PO BID cholecalciferol (vitamin D3) [Vitamin D3] 50 mcg (2,000 unit) capsule 1,000 unit PO DAILY Label Comments: takes at noon pramipexole 0.5 mg Tablet 0.5 mg PO QPM acetaminophen [Tylenol Extra Strength] 500 mg tablet 500 mg PO QID PRN methocarbamol 500 mg tablet 500 mg PO BID (DME) ResMed AirSense 10 CPAP Qty: 1 Dose Instruction: As directed Label Comments: Pressure: 12-18 cmH2O DME: [facility] Rx Instructions: As directed Referrals: Cliff Prasad MD [Primary Care Provider] - Visit Report Forms: Patient Portal/API
[2022-02-13 13:07] LABS: Influenza A - CEPHEID Flu A NEGATIVE (NEGATIVE); Influenza B - CEPHEID Flu B NEGATIVE (NEGATIVE)
[2022-02-13 13:15] LABS: COVID-19 CEPHEID PCR (VTM/NP) Negative (Negative)
== END 2022-02-13 14:13 | disposition home or self-care (01) ==
PROVIDERS: Emergency Provider Emergency Medicine; PCP Student in an Organized Health Care Education/Training Program
DX: M79.10 Myalgia, unspecified site (principal); R06.02 Shortness of breath; Z20.822 Contact with and (suspected) exposure to COVID-19
CPT/HCPCS: 36415; 71046; 80053; 83605; 85025; 87635; 93005; 99284; C9803

== ENCOUNTER 2022-03-15 12:58 | Emergency (ER) | payer OTHER, SELFPAY ==
[2022-03-15 12:48] VITALS: BP 140/71; PULSE 77; RESP 16; TEMP 36.6; O2SAT 98
--- NOTE | 2022-03-15 12:48 | DI.RAD.S_ITS ---
PROCEDURE: XR SHOULDER LT MIN 2V INDICATIONS: fall TECHNIQUE: 3 views of the shoulder were acquired. COMPARISON: None. FINDINGS: Bones: No fractures or dislocations. No suspicious bony lesions. Visualized ribs appear intact. Soft tissues: No suspicious soft tissue calcifications. IMPRESSION: No acute radiographic abnormality. If there is high concern for internal derangement, consider MRI. Dictated by: Julito Arriola M.D. on 03/15/2022 at 13:31 Approved by: Julito Arriola M.D. on 03/15/2022 at 13:33
--- NOTE | 2022-03-15 14:41 | DI.RAD.S_ITS ---
PROCEDURE: XR HUMERUS LT 2V INDICATIONS: fall TECHNIQUE: 2 views of the humerus were acquired. COMPARISON: [facility], CR, XR ELBOW LT MIN 3V, 03/15/2022, 15:30. FINDINGS: Bones: No fractures or dislocations. No suspicious bony lesions. Soft tissues: No suspicious soft tissue calcifications. IMPRESSION: No acute osseous abnormalities. If clinical symptoms persist or clinical suspicion for pathology is high, a repeat examination in 7-10 days, or advanced imaging such as CT or MRI is suggested for further evaluation. Dictated by: Chidi Tomas M.D. on 03/15/2022 at 15:52 Approved by: Chidi Tomas M.D. on 03/15/2022 at 15:56
--- NOTE | 2022-03-15 14:41 | DI.RAD.S_ITS ---
PROCEDURE: XR ELBOW LT MIN 3V INDICATIONS: fall TECHNIQUE: 3 views of the elbow were acquired. COMPARISON: [facility], CR, XR HUMERUS LT 2V, 03/15/2022, 15:30. [facility], CR, XR SHOULDER LT MIN 2V, 03/15/2022, 12:55. FINDINGS: Bones: No fractures or dislocations. No suspicious bony lesions. Soft tissues: No elbow joint effusion. No suspicious soft tissue calcifications. Suspect small superficial soft tissue foreign bodies posterior lateral to the elbow. IMPRESSION: 1. No acute osseous abnormalities. If clinical symptoms persist or clinical suspicion for pathology is high, a repeat examination in 7-10 days, or advanced imaging such as CT or MRI is suggested for further evaluation. 2. Suspect small superficial soft tissue foreign bodies posterior lateral to the elbow. Dictated by: Chidi Tomas M.D. on 03/15/2022 at 15:56 Approved by: Chidi Tomas M.D. on 03/15/2022 at 15:59
--- NOTE | 2022-03-15 14:41 | DI.RAD.S_ITS ---
PROCEDURE: XR TIBIA FUBULA RT 2V INDICATIONS: injury, fall TECHNIQUE: 2 views of the tibia and fibula were acquired. COMPARISON: None. FINDINGS: Bones: No fractures or dislocations. No suspicious bony lesions. There is focal cortical thickening in the posterior cortex of the mid fibular shaft. Soft tissues: No suspicious soft tissue calcifications or masses. IMPRESSION: 1. No acute osseous abnormalities. 2. Focal cortical thickening in the mid fibular shaft involving the posterior cortex. This could represent exostosis or sequelae of old injury. Dictated by: Chidi Tomas M.D. on 03/15/2022 at 15:59 Approved by: Chidi Tomas M.D. on 03/15/2022 at 16:03
[2022-03-15] MEDS: KETOROLAC 30 MG/ML VIAL 15 MG IV (15:16)
--- NOTE | 2022-03-15 20:31 | ED.UPPEXIN ---
HPI - Extremity Injury (Upper) <Ann Marie Paul PA-C - Last Filed: 03/16/22 12:03> General Chief Complaint: Extremity Injury, Upper Stated Complaint: left shoulder pain, fall off 8ft ladder. Time Seen by Provider: 03/15/22 13:00 Source: patient and EMS Mode of arrival: EMS History of Present Illness HPI narrative: 71-year-old male with past medical history obstructive sleep apnea, essential hypertension presents to the ED status post a mechanical fall sustained just prior to arrival. Patient states he was up on a ladder, 8 ft above ground when he tried to over reach with his arm, sustained a mechanical fall. Patient states he fell on his left shoulder. Patient denies loss of consciousness, head strike. Patient is not on blood thinners. Patient denies feeling lightheaded or dizzy prior to falling. Patient states it was purely a mechanical fall because he over reached. Patient endorses pain in his left shoulder, left elbow, right garcia. Patient denies numbness, tingling, weakness. Patient says he is able to bear weight and walk. Patient denies fever, chills, chest pain, shortness of breath, nausea, vomiting. Related Data Home Medications Medication Instructions Recorded Confirmed epinephrine 0.3 mg/0.3 mL 1 dose IM PRN PRN Allergic 04/14/16 01/28/21 injection, auto-injector Reaction ##0 buspirone 10 mg tablet 10 mg PO TID 08/09/18 01/28/21 trazodone 50 mg tablet 50 mg PO BEDTIME 08/09/18 01/28/21 ResMed AirSense 10 CPAP #1 ea 10/24/18 01/28/21 pramipexole 0.5 mg tablet 0.5 mg PO QPM 03/20/19 01/28/21 acetaminophen 500 mg tablet 500 mg PO QID PRN 01/07/20 01/28/21 (Tylenol Extra Strength) armodafinil 200 mg tablet 100 mg PO .noon 01/07/20 01/28/21 omeprazole 20 mg capsule,delayed 20 mg PO BID 01/07/20 01/28/21 release flunisolide 25 mcg (0.025 %) nasal 2 spray intranasal BID 01/30/20 01/28/21 spray cholecalciferol (vitamin D3) 50 1,000 unit PO DAILY 02/27/20 01/28/21 mcg (2,000 unit) capsule (Vitamin D3) methocarbamol 500 mg tablet 500 mg PO BID 04/23/20 01/28/21 hydroxyzine HCl 25 mg tablet 25 mg PO QID PRN 10/06/20 01/28/21 solriamfetol 150 mg tablet 150 mg PO DAILY 11/18/20 01/28/21 amlodipine 5 mg tablet 5 mg PO DAILY 05/11/21 05/11/21 solriamfetol 150 mg tablet 150 mg PO DAILY 05/11/21 05/11/21 Previous Rx's Medication Instructions Recorded lisinopril 20 mg tablet 20 mg PO DAILY #90 tabs 10/10/20 armodafinil 200 mg tablet 200 mg PO DAILY #21 tabs 08/26/21 Allergies Allergy/AdvReac Type Severity Reaction Status Date / Time doxycycline [DOXYCYCLINE] Allergy Severe Anaphylaxis Verified 03/15/22 13:15 guaifenesin [GUAIFENESIN] Allergy Severe Throat Verified 03/15/22 13:15 swelling methylphenidate Allergy Severe Suicidal Verified 03/15/22 13:15 [METHYLPHENIDATE] ideation pemoline [From Cylert] Allergy Severe Swelling, Verified 03/15/22 13:15 suicidal ideation Penicillins [PENICILLINS] Allergy Severe Stiffens Verified 03/15/22 13:15 like a board and fell flat on his face pseudoephedrine Allergy Severe Throat Verified 03/15/22 13:15 [PSEUDOEPHEDRINE] swelling soy [SOY] Allergy Severe Anaphylaxis, Verified 03/15/22 13:15 diarrhea, swelling venom-honey bee Allergy Severe Anaphylaxis Verified 03/15/22 13:15 [BEE VENOM (HONEY BEE)] pneumococcal vaccine Allergy Mild Localized Verified 03/15/22 13:15 [From PNEUMOVAX 23] swelling, redness prazosin [PRAZOSIN] Allergy Unknown Unknown Verified 03/15/22 13:15 adhesive [ADHESIVE] AdvReac Intermediate Pulled Verified 03/15/22 13:15 skin off with removal gluten [GLUTEN] AdvReac Intermediate Celiac Verified 03/15/22 13:15 Disease lactose [LACTOSE] AdvReac Unknown GI upset, Verified 03/15/22 13:15 diarrhea Lettuce AdvReac Severe Anaphylactic Uncoded 03/15/22 13:15 Shock Review of Systems <HymRAZ Ramírez Last Filed: 03/16/22 12:03> Review of Systems ROS Unobtainable: All systems reviewed & are unremarkable except as noted in HPI and below Constitutional Constitutional: Denies chills, Denies fatigue, Denies fever(s), Denies frequent falls, Denies lethargy and Denies weakness Eyes Eyes: Denies change in vision, Denies eye discharge, Denies irritation and Denies loss of vision ENT Ears, Nose, Mouth, and Throat: Denies change in voice, Denies dizziness, Denies neck pain, Denies sore throat and Denies throat swelling Cardiovascular Cardiovascular: Denies chest pain, Denies irregular heart rhythm, Denies lightheadedness, Denies palpitations, Denies dyspnea, Denies dyspnea on exertion and Denies orthopnea Respiratory Respiratory: Denies cough, Denies dyspnea, Denies dyspnea on exertion and Denies wheezing Gastrointestinal Gastrointestinal: Denies abdominal pain, Denies change in bowel habits, Denies diarrhea, Denies nausea and Denies vomiting Genitourinary Genitourinary: Denies hematuria, Denies flank pain, Denies urinary incontinence and Denies urinary urgency Musculoskeletal Musculoskeletal: Denies back pain, Denies muscle weakness, Denies neck pain, Denies numbness and Denies tingling Comments: Left shoulder, left elbow, right garcia pain. No numbness, tingling, weakness. Integumentary/Breasts Skin/Breast: Denies pruritus, Denies erythema, Denies rash and Denies wounds Neurologic Neurologic: Denies behavioral changes, Denies confusion, Denies dizziness, Denies frequent falls, Denies loss of vision, Denies numbness, Denies tingling and Denies weakness Psychiatric Psychiatric: Denies anxiety, Denies behavioral changes, Denies confusion, Denies depression, Denies homicidal ideation and Denies suicidal ideation Endocrine Endocrine: Denies fatigue, Denies flushing and Denies palpitations Hematologic/Lymphatic Hematologic/Lymphatic: Denies easy bruising Allergic/Immunologic Allergic/Immunologic: Denies urticaria, Denies throat swelling and Denies wheezing Patient History <Ann Marie Paul PA-C - Last Filed: 03/16/22 12:03> Medical History Abdominal aortic aneurysm (~05/28/14) Alcoholism in remission Allergic rhinitis Anxiety (~1994) Arthritis Cataplexy Celiac disease Cerumen impaction Cervical disc disorder Cervical disc disorder with radiculopathy, high cervical region Chicken pox (~1955) Chronic sinusitis Depression (~1994) Diverticulitis (~1998) Diverticulosis Essential hypertension Facet arthropathy, cervical Former smoker Fracture of fifth metacarpal bone of left hand Fracture of fourth metacarpal bone of left hand GERD (gastroesophageal reflux disease) (~1995) Hearing loss History of pneumonia HNP (herniated nucleus pulposus), cervical Hyperlipemia (~08/31/12) Hypertension (~12/12/12) Impaired vision Malaria (~1968) Measles (~1952) MRSA (methicillin resistant Staphylococcus aureus) (~1996) Mumps (~1956) Murmur Narcolepsy (~1994) Nephrolithiasis Neuropathy Obesity (BMI 30-39.9) Obstructive sleep apnea Tpbbec-Igejqa-Qikd neutrophil abnormality PTSD (post-traumatic stress disorder) (~1969) Rheumatic fever (~1953) RLS (restless legs syndrome) (~2007) Sacral dysfunction Sinus drainage Sleep apnea (~1994) Syphilis (~1967) TIA (transient ischemic attack) Surgical History Anesthesia H/O rhinoplasty H/O right inguinal hernia repair Hx of nasal septoplasty Hx of tonsillectomy (~1955) Family History Brother Heart disease Diabetes mellitus Father Cancer Mother Mental health problem Grandfather Phlebitis Social History marital status: household members: spouse ( is disabled) occupational status: previously employed Smoking Status: Former smoker alcohol intake: never substance use type: does not use Smoking Status: Former smoker alcohol intake frequency: 0-2 drinks per day Substance Use Type: does not use Exam <Ann Marie Paul PA-C - Last Filed: 03/16/22 12:03> Narrative Exam Narrative: Const General:?cooperative, healthy appearing and comfortable [facility] Head:?normal to inspection Ears:?hearing grossly normal bilaterally Nose:?external nose normal Face and sinus:?normal facial exam and sinuses nontender Mouth:?oral mucosae normal Throat:?posterior oropharynx normal Eyes General:?appearance normal, both eyes and all related structures Neck Neck:?normal visual inspection and no lymphadenopathy noted Resp Effort & Inspection:?normal respiratory effort Auscultation:?clear to auscultation bilaterally Cardio Rate:?regular rate Rhythm:?regular rhythm Musculoskeletal Neurovascularly intact.? Left shoulder appears to be intact with no deformities, bruising.? Patient able to move the left arm but range of motion is restricted by pain.? Right garcia with some abrasions, bony tenderness to palpation. Neuro General:?patient alert, patient awake and patient oriented x3 Initial Vital Signs Initial Vital Signs: Vital Signs Temperature 98 F 03/15/22 12:48 Pulse Rate 77 03/15/22 12:48 Respiratory Rate 16 03/15/22 12:48 Blood Pressure 140/71 03/15/22 12:48 Pulse Oximetry 98 03/15/22 12:48 Oxygen Delivery Method 03/15/22 12:48 <DO Javy Mejias Last Filed: 03/16/22 20:43> Initial Vital Signs Initial Vital Signs: Vital Signs Temperature 98 F 03/15/22 12:48 Pulse Rate 77 03/15/22 12:48 Respiratory Rate 16 03/15/22 12:48 Blood Pressure 140/71 03/15/22 12:48 Pulse Oximetry 98 03/15/22 12:48 Oxygen Delivery Method 03/15/22 12:48 Course <Ann Marie Paul PA-C - Last Filed: 03/16/22 12:03> Orders Ordered: Discontinued Medications Ketorolac Tromethamine (Ketorolac 30 Mg/Ml Vial) 15 mg IV NOW ONE Stop: 03/15/22 14:43 Last Admin: 03/15/22 15:16 Dose: 15 mg Documented By: [facility] Vital Signs Vital signs: Vital Signs - 8 hr 03/15/22 12:48 Temperature 98 F Pulse Rate 77 Respiratory Rate 16 Blood Pressure 140/71 Pulse Oximetry 98 Oxygen Delivery Method Room Air <DO Javy Mejias Last Filed: 03/16/22 20:43> Orders Ordered: Discontinued Medications Ketorolac Tromethamine (Ketorolac 30 Mg/Ml Vial) 15 mg IV NOW ONE Stop: 03/15/22 14:43 Last Admin: 03/15/22 15:16 Dose: 15 mg Documented By: [facility] Vital Signs Vital signs: Vital Signs - 8 hr 03/15/22 12:48 Temperature 98 F Pulse Rate 77 Respiratory Rate 16 Blood Pressure 140/71 Pulse Oximetry 98 Oxygen Delivery Method Room Air MDM - Extremity Injury (Upper) <Ann Marie Paul PA-C - Last Filed: 03/16/22 12:03> Imaging Data Extremity x-ray #1: Radiologist's Impression: PROCEDURE:? XR TIBIA FUBULA RT 2V ? INDICATIONS:? injury, fall ? TECHNIQUE:? 2 views of the tibia and fibula were acquired.? ? COMPARISON:? None. ? FINDINGS:? ? Bones:? No fractures or dislocations.? No suspicious bony lesions.? There is focal cortical thickening in the posterior cortex of the mid fibular shaft. ? Soft tissues:? No suspicious soft tissue calcifications or masses.? ? IMPRESSION:? ? 1. No acute osseous abnormalities. 2. Focal cortical thickening in the mid fibular shaft involving the posterior cortex.? This could represent exostosis or? sequelae of old injury. ? ? Dictated by: Chidi Tomas M.D. on 03/15/2022 at 15:59 ? ? Approved by: Chidi Tomas M.D. on 03/15/2022 at 16:03 ? Extremity x-ray #2: Radiologist's Impression: PROCEDURE:? XR HUMERUS LT 2V ? INDICATIONS:? fall ? TECHNIQUE:? 2 views of the humerus were acquired.? ? COMPARISON:? [facility], , XR ELBOW LT MIN 3V, 03/15/2022, 15:30. ? FINDINGS:? ? Bones:? No fractures or dislocations.? No suspicious bony lesions.? ? Soft tissues:? No suspicious soft tissue calcifications.? ? IMPRESSION:? No acute osseous abnormalities.? If clinical symptoms persist or clinical suspicion for pathology is high, a repeat examination in 7-10 days, or advanced imaging such as CT or MRI is suggested for further evaluation. ? ? Dictated by: Chidi Tomas M.D. on 03/15/2022 at 15:52 ? ? Approved by: Chidi Tomas M.D. on 03/15/2022 at 15:56 ? Extremity x-ray #3: Radiologist's Impression: PROCEDURE:? XR ELBOW LT MIN 3V ? INDICATIONS:? fall ? TECHNIQUE:? 3 views of the elbow were acquired.? ? COMPARISON:? [facility], CR, XR HUMERUS LT 2V, 03/15/2022, 15:30.? [facility], CR, XR SHOULDER LT MIN 2V, 03/15/2022, 12:55. ? FINDINGS:? ? Bones:? No fractures or dislocations.? No suspicious bony lesions.? ? Soft tissues:? No elbow joint effusion.? No suspicious soft tissue calcifications.? Suspect small superficial soft tissue foreign bodies posterior lateral to the elbow. ? ? IMPRESSION:? ? 1. No acute osseous abnormalities.? ? If clinical symptoms persist or clinical suspicion for pathology is high, a repeat examination in 7-10 days, or advanced imaging such as CT or MRI is suggested for further evaluation. ? 2. Suspect small superficial soft tissue foreign bodies posterior lateral to the elbow.? ? ? Dictated by: Chidi Tomas M.D. on 03/15/2022 at 15:56 ? ? Approved by: Chidi Tomas M.D. on 03/15/2022 at 15:59 ? Shoulder x-ray: Radiologist's Impression: PROCEDURE:? XR SHOULDER LT MIN 2V ? INDICATIONS:? fall ? TECHNIQUE:? 3 views of the shoulder were acquired.? ? COMPARISON:? None. ? FINDINGS:? ? Bones:? No fractures or dislocations.? No suspicious bony lesions.? Visualized ribs appear intact.? ? Soft tissues:? No suspicious soft tissue calcifications.? ? IMPRESSION:? No acute radiographic abnormality.? If there is high concern for internal derangement, consider MRI. ? ? Dictated by: Julito Arriola M.D. on 03/15/2022 at 13:31 ? ? Approved by: Julito Arriola M.D. on 03/15/2022 at 13:33 ? [facility] Narrative Medical decision making narrative: 71-year-old male with past medical history obstructive sleep apnea, essential hypertension presents to the ED status post a mechanical fall sustained just prior to arrival. Concern for fracture/dislocation versus contusion versus musculoskeletal sprain/strain.? Obtained x-rays.? X-rays with no acute findings.? Patient's pain improved with Toradol.? Patient was also given some fentanyl in the ambulance.? Patient is neurovascularly intact.? Able to move all extremities.? Discharged home with ED return precautions, PCP follow-up.? Patient verbalized understanding. Discharge Plan Departure Patient Disposition: Home Clinical Impression: Acute shoulder pain Instructions: DI for Shoulder Sprain Activity Restrictions/Additional Instructions: You were evaluated in the ED today for shoulder, elbow, leg pain from a fall. Short x-rays did not show any fractures or dislocations. Your symptoms are likely due to a shoulder sprain, contusion. You may continue to take ibuprofen or Tylenol for your symptoms. Please follow-up with your PCP as soon as possible. Return to the ED if your symptoms worsen, you experience dizziness, loss of consciousness, chest pain, shortness of breath. Prescriptions: No Action epinephrine 0.3 MG/0.3 ML auto-injector 1 dose IM PRN PRN (Reason: Allergic Reaction) Qty: 0 Label Comments: hasn't needed to use lisinopril 20 mg tablet 20 mg PO DAILY Qty: 90 0RF solriamfetol 150 mg tablet 150 mg PO DAILY Rx Instructions: 75mg PO daily for 7 days, then increase to 150mg PO daily armodafinil 200 mg tablet 200 mg PO DAILY Qty: 21 0RF hydroxyzine HCl 25 mg tablet 25 mg PO QID PRN amlodipine 5 mg tablet 5 mg PO DAILY solriamfetol 150 mg tablet 150 mg PO DAILY flunisolide 25 mcg (0.025 %) spray,non-aerosol 2 spray NASAL BID buspirone 10 mg Tablet 10 mg PO TID trazodone 50 mg Tablet 50 mg PO BEDTIME Label Comments: med list states various doses over the years. armodafinil 200 mg tablet 100 mg PO .noon Label Comments: takes at noon omeprazole 20 mg capsule,delayed release(DR/EC) 20 mg PO BID cholecalciferol (vitamin D3) [Vitamin D3] 50 mcg (2,000 unit) capsule 1,000 unit PO DAILY Label Comments: takes at noon pramipexole 0.5 mg Tablet 0.5 mg PO QPM acetaminophen [Tylenol Extra Strength] 500 mg tablet 500 mg PO QID PRN methocarbamol 500 mg tablet 500 mg PO BID (DME) ResMed AirSense 10 CPAP Qty: 1 Dose Instruction: As directed Label Comments: Pressure: 12-18 cmH2O DME: [facility] Rx Instructions: As directed Referrals: Cliff Prasad MD [Primary Care Provider] - Visit Report Forms: Patient Portal/API <Yesenia Gardner DO - Last Filed: 03/16/22 20:43> Cosign ED Attending [place] Attestation: I was immediately available in the department for consultation. Documentation has been reviewed. I agree with assessment and plan.
== END 2022-03-15 16:38 | disposition home or self-care (01) ==
PROVIDERS: Emergency Provider Student in an Organized Health Care Education/Training Program; PCP Student in an Organized Health Care Education/Training Program
DX: M25.512 Pain in left shoulder (principal); W11.XXXA Fall on and from ladder, initial encounter
CPT/HCPCS: 73030; 73060; 73080; 73590; 96374; 99284; J1885

== ENCOUNTER 2022-08-19 18:12 | Emergency (ER) | payer MEDICARE, SELFPAY ==
[2022-08-19 18:28] VITALS: BP 127/63; PULSE 80; RESP 17; TEMP 36.2; O2SAT 96; BMI 31.1
--- NOTE | 2022-08-19 18:32 | DI.RAD.S_ITS ---
PROCEDURE: XR CHEST 1V INDICATIONS: Shortness of breath TECHNIQUE: One view of the chest was acquired. COMPARISON: [facility], , XR CHEST 2V, 02/13/2022, 11:19. [facility], CR, XR CHEST 1V, 03/08/2020, 14:13. FINDINGS: Surgical changes and devices: None. Lungs and pleura: Lungs are clear. No pleural effusions or pneumothorax. Mediastinum: Mediastinal contours appear normal. Heart size is normal. Bones and chest wall: No suspicious bony lesions. Overlying soft tissues appear unremarkable. IMPRESSION: No acute cardiopulmonary abnormality. Dictated by: Clay Gonzalez M.D. on 08/19/2022 at 21:06 Approved by: Clay Gonzalez M.D. on 08/19/2022 at 21:07
[2022-08-19 18:59] LABS: Add Manual Diff / Slide Review NO; Basophils Absolute Auto 100 /uL (0-100); Basophils Percent Auto 1.2 % (0-2); Eosinophils Absolute Auto 200 /uL (0-450); Hematocrit 40.4 % (41-53); Hemoglobin 13.7 g/dL (13.5-17.5); Lymphocytes Absolute Auto 1100 /uL (1100-4500); Lymphocytes Percent Auto 25.1 % (25-40); Mean Corpuscular HGB Conc 33.8 % (30-36); Mean Corpuscular Hemoglobin 30.5 PG (26-34); Mean Corpuscular Volume 90.2 fL (80-100); Monocytes Absolute Auto 500 /uL (0-900); Monocytes Percent Auto 11.3 % (3-14); Neutrophils Absolute Auto 2600 /uL (1500-7000); Neutrophils Percent Auto 58.4 % (50-75); Platelet Count 167 X10^3/uL (150-400); Red Blood Cell Count 4.48 X10^6/uL (4.5-5.9); Red Cell Distribution Width 13.4 % (11.6-14.8); White Blood Cell Count 4.5 X10^3/uL (4.5-11.0)
[2022-08-19 18:59] LABS: COVID19 -Nasal RAPID Negative (Negative)
[2022-08-19 19:05] LABS: Prothrombin Time 11.4 SECONDS (10.1-12.7)
[2022-08-19 19:11] LABS: Alanine Aminotransferase 30 IU/L (<50); Albumin 3.9 g/dL (3.5-5.0); Albumin Globulin Ratio 1.3 (1.0-2.8); Alkaline Phosphatase 98 U/L (38-126); Aspartate Aminotransferase 30 IU/L (17-59); BUN Creatinine Ratio 29.9 (6-22); Bilirubin Total 0.2 mg/dL (0.2-1.3); Blood Urea Nitrogen 26 mg/dL (9-20); Calcium 8.7 mg/dL (8.4-10.2); Carbon Dioxide 26 mmol/L (22-32); Chloride 103 mmol/L (98-107); Estimated Glomerular Filt Rate > 60 mL/min (>60); Glucose 141 mg/dL (80-110); HEMOLYSIS 16 (0-50); Lactate (Lactic Acid) 2.2 mmol/L (0.7-2.1); Potassium 3.1 mmol/L (3.4-5.1); Sodium 138 mmol/L (137-145); Total Protein 6.9 g/dL (6.3-8.2)
[2022-08-19 19:16] LABS: D Dimer 473 ng/ml (<500)
[2022-08-19 19:22] LABS: NT-proBNP (BNP-Adult 18+) 58 pg/mL (<125); Troponin I < 0.012 ng/mL (0.01-0.034)
--- NOTE | 2022-08-19 20:17 | PC.NURSE ---
To room from triage - ambulatory with steady gait - alert and oriented - PWD with respirations equal and unlabored bilaterally - speaking in full clear sentences
[2022-08-19 20:37] VITALS: PULSE 62; O2SAT 97
[2022-08-19 20:42] VITALS: BP 128/71; PULSE 71; RESP 18; O2SAT 97
[2022-08-19 20:53] LABS: Reflexed Lactate in 2 Hours Y
[2022-08-19 21:00] VITALS: BP 118/77; PULSE 67; RESP 20; O2SAT 95
--- NOTE | 2022-08-19 21:29 | ED.GENADULT ---
HPI - General Adult General Chief complaint: Shortness of Breath/Dyspnea Stated complaint: probable pneumonia Time Seen by Provider: 08/19/22 18:50 Source: patient Mode of arrival: Ambulatory Limitations: no limitations History of Present Illness HPI narrative: Patient is a 72-year-old male who between 10 and 14 days ago was diagnosed with both COVID and influenza. This was diagnosed after he was on a airplane flight and he became hypoxic and air. He was sent to emergency department after he landed. Was subsequently discharged home. He is followed with the [facility] who stated that he should come to the emergency department for a chest x-ray because he was still complaining of shortness of breath. He also states he an episode of vomiting today. Has also had coughing. He has completed all of the medications that were prescribed to him. Related Data Home Medications Medication Instructions Recorded Confirmed epinephrine 0.3 mg/0.3 mL 1 dose IM PRN PRN Allergic 04/14/16 03/22/22 injection, auto-injector Reaction ##0 buspirone 10 mg tablet 10 mg PO TID 08/09/18 03/22/22 trazodone 50 mg tablet 50 mg PO BEDTIME 08/09/18 03/22/22 ResMed AirSense 10 CPAP #1 ea 10/24/18 03/22/22 pramipexole 0.5 mg tablet 0.5 mg PO QPM 03/20/19 03/22/22 acetaminophen 500 mg tablet 500 mg PO QID PRN 01/07/20 03/22/22 (Tylenol Extra Strength) armodafinil 200 mg tablet 100 mg PO .noon 01/07/20 03/22/22 omeprazole 20 mg capsule,delayed 20 mg PO BID 01/07/20 03/22/22 release flunisolide 25 mcg (0.025 %) nasal 2 spray intranasal BID 01/30/20 03/22/22 spray cholecalciferol (vitamin D3) 50 1,000 unit PO DAILY 02/27/20 03/22/22 mcg (2,000 unit) capsule (Vitamin D3) methocarbamol 500 mg tablet 500 mg PO BID 04/23/20 03/22/22 hydroxyzine HCl 25 mg tablet 25 mg PO QID PRN 10/06/20 03/22/22 amlodipine 5 mg tablet 5 mg PO DAILY 05/11/21 03/22/22 solriamfetol 150 mg tablet 150 mg PO DAILY 05/11/21 03/22/22 Previous Rx's Medication Instructions Recorded lisinopril 20 mg tablet 20 mg PO DAILY #90 tabs 10/10/20 armodafinil 200 mg tablet 200 mg PO DAILY #21 tabs 08/26/21 Allergies Allergy/AdvReac Type Severity Reaction Status Date / Time doxycycline [DOXYCYCLINE] Allergy Severe Anaphylaxis Verified 08/19/22 19:26 guaifenesin [GUAIFENESIN] Allergy Severe Throat Verified 08/19/22 19:26 swelling methylphenidate Allergy Severe Suicidal Verified 08/19/22 19:26 [METHYLPHENIDATE] ideation pemoline [From Cylert] Allergy Severe Swelling, Verified 08/19/22 19:26 suicidal ideation Penicillins [PENICILLINS] Allergy Severe Stiffens Verified 08/19/22 19:26 like a board and fell flat on his face pseudoephedrine Allergy Severe Throat Verified 08/19/22 19:26 [PSEUDOEPHEDRINE] swelling soy [SOY] Allergy Severe Anaphylaxis, Verified 08/19/22 19:26 diarrhea, swelling venom-honey bee Allergy Severe Anaphylaxis Verified 08/19/22 19:26 [BEE VENOM (HONEY BEE)] pneumococcal vaccine Allergy Mild Localized Verified 08/19/22 19:26 [From PNEUMOVAX 23] swelling, redness prazosin [PRAZOSIN] Allergy Unknown Unknown Verified 08/19/22 19:26 adhesive [ADHESIVE] AdvReac Intermediate Pulled Verified 08/19/22 19:26 skin off with removal gluten [GLUTEN] AdvReac Intermediate Celiac Verified 08/19/22 19:26 Disease lactose [LACTOSE] AdvReac Unknown GI upset, Verified 08/19/22 19:26 diarrhea Lettuce AdvReac Severe Anaphylactic Uncoded 03/22/22 13:22 Shock Review of Systems Constitutional Constitutional: Reports system reviewed and no additional complaints, except as documented ENT Ears, Nose, Mouth, and Throat: Reports system reviewed and no additional complaints, except as documented Cardiovascular Cardiovascular: Reports system reviewed and no additional complaints, except as documented Respiratory Respiratory: Reports system reviewed and no additional complaints, except as documented Gastrointestinal Gastrointestinal: Reports system reviewed and no additional complaints, except as documented Hematologic/Lymphatic On Anticoagulants: No Patient History Medical History Abdominal aortic aneurysm (~05/28/14) Alcoholism in remission Allergic rhinitis Anxiety (~1994) Arthritis Cataplexy Celiac disease Cerumen impaction Cervical disc disorder Cervical disc disorder with radiculopathy, high cervical region Chicken pox (~1955) Chronic sinusitis Depression (~1994) Diverticulitis (~1998) Diverticulosis Essential hypertension Facet arthropathy, cervical Former smoker Fracture of fifth metacarpal bone of left hand Fracture of fourth metacarpal bone of left hand GERD (gastroesophageal reflux disease) (~1995) Hearing loss History of pneumonia HNP (herniated nucleus pulposus), cervical Hyperlipemia (~08/31/12) Hypertension (~12/12/12) Impaired vision Malaria (~1968) Measles (~1952) MRSA (methicillin resistant Staphylococcus aureus) (~1996) Mumps (~1956) Murmur Narcolepsy (~1994) Nephrolithiasis Neuropathy Obesity (BMI 30-39.9) Obstructive sleep apnea Lcbjbp-Sjxysy-Akaz neutrophil abnormality PTSD (post-traumatic stress disorder) (~1969) Rheumatic fever (~1953) RLS (restless legs syndrome) (~2007) Sacral dysfunction Sinus drainage Sleep apnea (~1994) Syphilis (~1967) TIA (transient ischemic attack) Surgical History Anesthesia H/O rhinoplasty H/O right inguinal hernia repair Hx of nasal septoplasty Hx of tonsillectomy (~1955) Family History Brother Heart disease Diabetes mellitus Father Cancer Mother Mental health problem Grandfather Phlebitis Social History marital status: household members: spouse ( is disabled) occupational status: previously employed Smoking Status: Former smoker alcohol intake: never substance use type: does not use Smoking Status: Former smoker alcohol intake frequency: 0-2 drinks per day Substance Use Type: does not use Exam Initial Vital Signs Initial Vital Signs: Vital Signs Temperature 97.1 F L 08/19/22 18:28 Pulse Rate 80 08/19/22 18:28 Respiratory Rate 17 08/19/22 18:28 Blood Pressure 127/63 08/19/22 18:28 Pulse Oximetry 96 08/19/22 18:28 Oxygen Delivery Method 08/19/22 18:28 [facility] Head: normal to inspection and normocephalic Resp Effort & Inspection: normal respiratory effort Auscultation: clear to auscultation bilaterally Cardio Rate: regular rate GI Inspection: normal to inspection Skin General: no rashes or lesions noted Neuro General: patient alert, patient awake and moves all extremities Course Orders Ordered: ED Orders 08/19/22 18:32 XR chest 1V Stat Measure peak expiratory flow ONCE RT Consult Eval and Treat NOW 08/19/22 18:35 COVID19 -Nasal RAPID/Pre-Proc Stat 08/19/22 18:41 Complete Blood Count AUTO DIFF Stat Comprehensive Metabolic Panel Stat D Dimer Stat Lactate (Lactic Acid) Stat NT-proBNP (BNP-Adult 18+) Stat Prothrombin Time INR Stat Troponin I Stat 08/19/22 20:39 EKG-12 Lead Stat Vital Signs Vital signs: Vital Signs - 8 hr 08/19/22 18:28 08/19/22 20:37 08/19/22 20:42 Temperature 97.1 F L Pulse Rate 80 62 71 Respiratory Rate 17 18 Blood Pressure 127/63 Pulse Oximetry 96 97 97 Oxygen Delivery Method Room Air 08/19/22 20:42 08/19/22 21:00 08/19/22 21:00 Temperature Pulse Rate 67 Respiratory Rate 20 Blood Pressure 128/71 118/77 Pulse Oximetry 95 Oxygen Delivery Method 08/19/22 21:30 08/19/22 21:30 08/19/22 22:00 Temperature Pulse Rate 69 72 Respiratory Rate 21 Blood Pressure 122/74 Pulse Oximetry 95 94 Oxygen Delivery Method Room Air Medical Decision Making Lab Data Lab results reviewed: Yes I reviewed the patient's lab results. Result diagrams: 08/19/22 18:41 08/19/22 18:41 Labs: Lab Results 08/19/22 08/19/22 08/19/22 Range/Units 18:35 18:41 18:41 WBC 4.5 (4.5-11.0) X10^3/uL RBC 4.48 L (4.5-5.9) X10^6/uL Hgb 13.7 (13.5-17.5) g/dL Hct 40.4 L (41-53) % MCV 90.2 (80-100) fL MCH 30.5 (26-34) PG MCHC 33.8 (30-36) % RDW 13.4 (11.6-14.8) % Plt Count 167 (150-400) X10^3/uL Neut % (Auto) 58.4 (50-75) % Lymph % (Auto) 25.1 (25-40) % [place] % (Auto) 11.3 (3-14) % Eos % (Auto) 4.0 (2-4) % Baso % (Auto) 1.2 (0-2) % Neut # (Auto) 2600 (3617-5523) /uL Lymph # (Auto) 1100 (6745-0069) /uL [place] # (Auto) 500 (0-900) /uL Eos # (Auto) 200 (0-450) /uL Baso # (Auto) 100 (0-100) /uL PT 11.4 (10.1-12.7) SECONDS INR 1.0 (0.9-1.3) D-Dimer (<500) ng/ml Sodium (137-145) mmol/L Potassium (3.4-5.1) mmol/L Chloride (98-107) mmol/L Carbon Dioxide (22-32) mmol/L BUN (9-20) mg/dL Creatinine (0.66-1.25) mg/dL Estimated GFR (>60) mL/min BUN/Creatinine Ratio (6-22) Glucose (80-110) mg/dL Lactate (0.7-2.1) mmol/L Calcium (8.4-10.2) mg/dL Total Bilirubin (0.2-1.3) mg/dL AST (17-59) IU/L ALT (<50) IU/L Alkaline Phosphatase (38-126) U/L Troponin I (0.01-0.034) ng/mL NT-Pro-B Natriuret Pep (<125) pg/mL Total Protein (6.3-8.2) g/dL Albumin (3.5-5.0) g/dL Globulin (1.7-4.1) g/dL Albumin/Globulin Ratio (1.0-2.8) SARS-CoV-2 (PCR) Negative (Negative) 08/19/22 08/19/22 08/19/22 Range/Units 18:41 18:41 18:41 WBC (4.5-11.0) X10^3/uL RBC (4.5-5.9) X10^6/uL Hgb (13.5-17.5) g/dL Hct (41-53) % MCV (80-100) fL MCH (26-34) PG MCHC (30-36) % RDW (11.6-14.8) % Plt Count (150-400) X10^3/uL Neut % (Auto) (50-75) % Lymph % (Auto) (25-40) % [place] % (Auto) (3-14) % Eos % (Auto) (2-4) % Baso % (Auto) (0-2) % Neut # (Auto) (0037-2003) /uL Lymph # (Auto) (8033-0843) /uL [place] # (Auto) (0-900) /uL Eos # (Auto) (0-450) /uL Baso # (Auto) (0-100) /uL PT (10.1-12.7) SECONDS INR (0.9-1.3) D-Dimer 473 (<500) ng/ml Sodium 138 (137-145) mmol/L Potassium 3.1 L (3.4-5.1) mmol/L Chloride 103 (98-107) mmol/L Carbon Dioxide 26 (22-32) mmol/L BUN 26 H (9-20) mg/dL Creatinine 0.87 (0.66-1.25) mg/dL Estimated GFR > 60 (>60) mL/min BUN/Creatinine Ratio 29.9 H (6-22) Glucose 141 H (80-110) mg/dL Lactate 2.2 H (0.7-2.1) mmol/L Calcium 8.7 (8.4-10.2) mg/dL Total Bilirubin 0.2 (0.2-1.3) mg/dL AST 30 (17-59) IU/L ALT 30 (<50) IU/L Alkaline Phosphatase 98 (38-126) U/L Troponin I < 0.012 (0.01-0.034) ng/mL NT-Pro-B Natriuret Pep 58 (<125) pg/mL Total Protein 6.9 (6.3-8.2) g/dL Albumin 3.9 (3.5-5.0) g/dL Globulin 3.0 (1.7-4.1) g/dL Albumin/Globulin Ratio 1.3 (1.0-2.8) SARS-CoV-2 (PCR) (Negative) Imaging Data Chest x-ray: Radiologist's Impression: [address] [address] XRay Report Signed Patient: Sandeep Hopson MR#: [id number] : 1950 Acct:[id number] Age/Sex: 72 / M Date of Service: 08/19/22 Loc: ED Accession Number: [id number] ?? Procedure: XR chest 1V Ordering Provider: Sandeep Stallings D.O. PROCEDURE:? XR CHEST 1V ? INDICATIONS:? Shortness of breath ? TECHNIQUE:? One view of the chest was acquired.? ? COMPARISON:? [facility], CR, XR CHEST 2V, 02/13/2022, 11:19.? [facility], CR, XR CHEST 1V, 03/08/2020, 14:13. ? FINDINGS:? ? Surgical changes and devices:? None.? ? Lungs and pleura:? Lungs are clear.? No pleural effusions or pneumothorax.? ? Mediastinum:? Mediastinal contours appear normal.? Heart size is normal.? ? Bones and chest wall:? No suspicious bony lesions.? Overlying soft tissues appear unremarkable.? ? IMPRESSION:? No acute cardiopulmonary abnormality. ? ? Dictated by: Clay Gonzalez M.D. on 08/19/2022 at 21:06 ? ? Approved by: Clay Gonzalez M.D. on 08/19/2022 at 21:07?? [facility] Narrative Medical decision making narrative: Chest x-ray is unremarkable. He is not hypoxic. Not tachypneic. Is well-appearing. Afebrile. Tolerating oral intake. No indication for antibiotics. No indication to change any of his medications. He was given reassurance. Was also given return precautions and follow-up instructions. He expressed understanding and agreement. Discharge Plan Departure Patient Disposition: Home Clinical Impression: COVID-19 Instructions: COVID-19 Activity Restrictions/Additional Instructions: The chest x-ray today did not show any signs of pneumonia. Your vital signs and labs were unremarkable. Continue to follow all CDC guidelines with regard to the COVID-19 diagnosis. Be sure to increase your fluid intake. Return to the emergency department for any new or worsening symptoms. Prescriptions: No Action epinephrine 0.3 MG/0.3 ML auto-injector 1 dose IM PRN PRN (Reason: Allergic Reaction) Qty: 0 Label Comments: hasn't needed to use lisinopril 20 mg tablet 20 mg PO DAILY Qty: 90 0RF armodafinil 200 mg tablet 200 mg PO DAILY Qty: 21 0RF hydroxyzine HCl 25 mg tablet 25 mg PO QID PRN amlodipine 5 mg tablet 5 mg PO DAILY solriamfetol 150 mg tablet 150 mg PO DAILY flunisolide 25 mcg (0.025 %) spray,non-aerosol 2 spray NASAL BID buspirone 10 mg Tablet 10 mg PO TID trazodone 50 mg Tablet 50 mg PO BEDTIME Label Comments: med list states various doses over the years. armodafinil 200 mg tablet 100 mg PO .noon Label Comments: takes at noon omeprazole 20 mg capsule,delayed release(DR/EC) 20 mg PO BID cholecalciferol (vitamin D3) [Vitamin D3] 50 mcg (2,000 unit) capsule 1,000 unit PO DAILY Label Comments: takes at noon pramipexole 0.5 mg Tablet 0.5 mg PO QPM acetaminophen [Tylenol Extra Strength] 500 mg tablet 500 mg PO QID PRN methocarbamol 500 mg tablet 500 mg PO BID (DME) ResMed AirSense 10 CPAP Qty: 1 Dose Instruction: As directed Label Comments: Pressure: 12-18 cmH2O DME: [facility] Rx Instructions: As directed Referrals: Cliff Prasad MD [Primary Care Provider] - Stand Alone Forms: Patient Portal/API
[2022-08-19 21:30] VITALS: BP 122/74; PULSE 69; RESP 21; O2SAT 95
[2022-08-19 22:00] VITALS: PULSE 72; O2SAT 94
== END 2022-08-19 22:07 | disposition home or self-care (01) ==
PROVIDERS: Emergency Provider Emergency Medicine; PCP Student in an Organized Health Care Education/Training Program
DX: U07.1 COVID-19 (principal); R06.02 Shortness of breath; Z79.899 Other long term (current) drug therapy; Z20.822 Contact with and (suspected) exposure to COVID-19
CPT/HCPCS: 36415; 71045; 80053; 83605; 83880; 84484; 85025; 85379; 85610; 87635; 93005; 99284; C9803

== ENCOUNTER 2022-09-07 13:04 | Emergency (ER) | payer OTHER, SELFPAY ==
[2022-09-07] VITALS (12 sets, daily range): BP systolic 115–139; BP diastolic 56–70; PULSE 69–82; RESP 13–25; TEMP 36.4; O2SAT 94–97; BMI 31.1
--- NOTE | 2022-09-07 13:51 | DI.RAD.S_ITS ---
PROCEDURE: XR CHEST 2V INDICATIONS: cough TECHNIQUE: 2 views of the chest were acquired. COMPARISON: [facility], CR, XR CHEST 1V, 08/19/2022, 18:47. FINDINGS: Surgical changes and devices: None. Lungs and pleura: Slight appearance of increased pulmonary vascularity. Mediastinum: Mediastinal contours are normal. Heart size is normal. Bones and chest wall: No suspicious bony abnormalities. Soft tissues appear unremarkable. IMPRESSION: Slight increased vascularity suggestive of edema. Dictated by: Jaja White M.D. on 09/07/2022 at 15:00 Approved by: Jaja White M.D. on 09/07/2022 at 15:02
[2022-09-07 14:00] LABS: Add Manual Diff / Slide Review NO; Basophils Absolute Auto 100 /uL (0-100); Basophils Percent Auto 0.6 % (0-2); Eosinophils Absolute Auto 300 /uL (0-450); Eosinophils Percent Auto 3.2 % (2-4); Hematocrit 42.2 % (41-53); Hemoglobin 14.2 g/dL (13.5-17.5); Lymphocytes Absolute Auto 1300 /uL (1100-4500); Lymphocytes Percent Auto 14.2 % (25-40); Mean Corpuscular HGB Conc 33.7 % (30-36); Mean Corpuscular Hemoglobin 30.4 PG (26-34); Monocytes Absolute Auto 1000 /uL (0-900); Monocytes Percent Auto 10.5 % (3-14); Neutrophils Absolute Auto 6600 /uL (1500-7000); Neutrophils Percent Auto 71.5 % (50-75); Platelet Count 195 X10^3/uL (150-400); Red Blood Cell Count 4.69 X10^6/uL (4.5-5.9); Red Cell Distribution Width 13.5 % (11.6-14.8); White Blood Cell Count 9.2 X10^3/uL (4.5-11.0)
[2022-09-07 14:06] LABS: INR 1.1 (0.9-1.3); Prothrombin Time 12.7 SECONDS (10.1-12.7)
[2022-09-07 14:35] LABS: COVID-19 CEPHEID 4-PLEX PCR Negative (Negative); Influenza A - CEPHEID Flu A NEGATIVE (NEGATIVE); Influenza B - CEPHEID Flu B NEGATIVE (NEGATIVE); Respiratory Syncytial Virus Negative (Negative)
[2022-09-07 14:37] LABS: Alanine Aminotransferase 22 IU/L (<50); Alkaline Phosphatase 86 U/L (38-126); Aspartate Aminotransferase 24 IU/L (17-59); BUN Creatinine Ratio 23.3 (6-22); Bilirubin Total 0.3 mg/dL (0.2-1.3); Blood Urea Nitrogen 24 mg/dL (9-20); Calcium 9.2 mg/dL (8.4-10.2); Carbon Dioxide 31 mmol/L (22-32); Chloride 96 mmol/L (98-107); Estimated Glomerular Filt Rate > 60 mL/min (>60); Glucose 129 mg/dL (80-110); HEMOLYSIS < 15 (0-50); Lactate (Lactic Acid) 1.2 mmol/L (0.7-2.1); Potassium 3.6 mmol/L (3.4-5.1); Sodium 138 mmol/L (137-145); Total Protein 7.7 g/dL (6.3-8.2)
[2022-09-07 14:47] LABS: NT-proBNP (BNP-Adult 18+) 23 pg/mL (<125); Troponin I < 0.012 ng/mL (0.01-0.034)
--- NOTE | 2022-09-07 15:39 | ED.URI ---
HPI - URI/Sore Throat <Ann Marie Paul PA-C - Last Filed: 09/07/22 18:27> General Chief Complaint: Upper Respiratory Symptoms Stated Complaint: tight chest, sinuses plugged, dry cough, sore thro Time Seen by Provider: 09/07/22 15:00 Source: patient Mode of arrival: Ambulatory History of Present Illness HPI Narrative: 72-year-old male with past medical history COPD, hypertension, obstructive sleep apnea, narcolepsy presents to the ED with 4 days of dry cough, chest tightness, fatigue. Patient states that he was diagnosed with COVID in July, following which he received a paxlovid treatment. Patient was sent to a [place] ED when his SpO2 was noted to be 86% when he went to get a cortisone shot for his shoulder pain. Patient states he was diagnosed with paxlovid rebound and was sent home to rest and rehydrate. Following that, patient experienced a lot of nasal and chest congestion, coughing up phlegm. Currently patient is experiencing a dry cough, chest tightness when he breathes in, experiences fatigue when walking and performing his ADLs. Patient states that his oxygen levels have been in the mid to high 90s. Patient has a distant history of COPD, however has never been medicated for it. Patient is an ex-smoker, smoked for 20 years. Patient denies fever, chills, chest pain, nausea, vomiting, abdominal pain, dysuria, lightheadedness, dizziness, syncope. Related Data Home Medications Medication Instructions Recorded Confirmed epinephrine 0.3 mg/0.3 mL 1 dose IM PRN PRN Allergic 04/14/16 09/07/22 injection, auto-injector Reaction ##0 trazodone 50 mg tablet 50 mg PO BEDTIME 08/09/18 09/07/22 pramipexole 0.5 mg tablet 0.5 mg PO QPM 03/20/19 09/07/22 omeprazole 20 mg capsule,delayed 20 mg PO BID 01/07/20 09/07/22 release cholecalciferol (vitamin D3) 50 1,000 unit PO DAILY 02/27/20 09/07/22 mcg (2,000 unit) capsule (Vitamin D3) amlodipine 5 mg tablet 5 mg PO DAILY 05/11/21 09/07/22 solriamfetol 150 mg tablet 150 mg PO DAILY 05/11/21 09/07/22 baclofen 5 mg tablet 5 mg PO DAILY 09/07/22 09/07/22 chlorthalidone 25 mg tablet 25 mg PO DAILY 09/07/22 09/07/22 rosuvastatin 5 mg tablet 5 mg PO DAILY 09/07/22 09/07/22 Previous Rx's Medication Instructions Recorded lisinopril 20 mg tablet 20 mg PO DAILY #90 tabs 10/10/20 armodafinil 200 mg tablet 200 mg PO DAILY #21 tabs 08/26/21 Allergies Allergy/AdvReac Type Severity Reaction Status Date / Time doxycycline [DOXYCYCLINE] Allergy Severe Anaphylaxis Verified 09/07/22 13:26 guaifenesin [GUAIFENESIN] Allergy Severe Throat Verified 09/07/22 13:26 swelling methylphenidate Allergy Severe Suicidal Verified 09/07/22 13:26 [METHYLPHENIDATE] ideation pemoline [From Cylert] Allergy Severe Swelling, Verified 09/07/22 13:26 suicidal ideation Penicillins [PENICILLINS] Allergy Severe Stiffens Verified 09/07/22 13:26 like a board and fell flat on his face pseudoephedrine Allergy Severe Throat Verified 09/07/22 13:26 [PSEUDOEPHEDRINE] swelling soy [SOY] Allergy Severe Anaphylaxis, Verified 09/07/22 13:26 diarrhea, swelling venom-honey bee Allergy Severe Anaphylaxis Verified 09/07/22 13:26 [BEE VENOM (HONEY BEE)] pneumococcal vaccine Allergy Mild Localized Verified 09/07/22 13:26 [From PNEUMOVAX ] swelling, redness prazosin [PRAZOSIN] Allergy Unknown Unknown Verified 09/07/22 13:26 adhesive [ADHESIVE] AdvReac Intermediate Pulled Verified 09/07/22 13:26 skin off with removal gluten [GLUTEN] AdvReac Intermediate Celiac Verified 09/07/22 13:26 Disease lactose [LACTOSE] AdvReac Unknown GI upset, Verified 09/07/22 13:26 diarrhea Lettuce AdvReac Severe Anaphylactic Uncoded 09/07/22 13:26 Shock Review of Systems <Ann Marie Paul PA-C - Last Filed: 09/07/22 18:27> Review of Systems ROS Unobtainable: All systems reviewed & are unremarkable except as noted in HPI and below Constitutional Constitutional: Denies chills, Reports fatigue, Denies fever(s), Denies frequent falls, Denies lethargy and Denies weakness Eyes Eyes: Denies change in vision, Denies eye discharge, Denies irritation and Denies loss of vision ENT Ears, Nose, Mouth, and Throat: Denies change in voice, Denies dizziness, Denies neck pain, Denies sore throat and Denies throat swelling Cardiovascular Cardiovascular: Denies chest pain, Denies irregular heart rhythm, Denies lightheadedness, Denies palpitations, Denies dyspnea, Denies dyspnea on exertion and Denies orthopnea Respiratory Respiratory: Reports cough, Denies dyspnea, Denies dyspnea on exertion and Denies wheezing Comments: Chest tightness Gastrointestinal Gastrointestinal: Denies abdominal pain, Denies change in bowel habits, Denies diarrhea, Denies nausea and Denies vomiting Genitourinary Genitourinary: Denies hematuria, Denies flank pain, Denies urinary incontinence and Denies urinary urgency Musculoskeletal Musculoskeletal: Denies back pain, Denies muscle weakness, Denies neck pain, Denies numbness and Denies tingling Integumentary/Breasts Skin/Breast: Denies pruritus, Denies erythema, Denies rash and Denies wounds Neurologic Neurologic: Denies behavioral changes, Denies confusion, Denies dizziness, Denies frequent falls, Denies loss of vision, Denies numbness, Denies tingling and Denies weakness Psychiatric Psychiatric: Denies anxiety, Denies behavioral changes, Denies confusion, Denies depression, Denies homicidal ideation and Denies suicidal ideation Endocrine Endocrine: Reports fatigue, Denies flushing and Denies palpitations Hematologic/Lymphatic Hematologic/Lymphatic: Denies easy bruising Allergic/Immunologic Allergic/Immunologic: Denies urticaria, Denies throat swelling and Denies wheezing Patient History <Ann Marie Paul PA-C - Last Filed: 09/07/22 18:27> Medical History Abdominal aortic aneurysm (~05/28/14) Alcoholism in remission Allergic rhinitis Anxiety (~1994) Arthritis Cataplexy Celiac disease Cerumen impaction Cervical disc disorder Cervical disc disorder with radiculopathy, high cervical region Chicken pox (~1955) Chronic sinusitis Depression (~1994) Diverticulitis (~1998) Diverticulosis Essential hypertension Facet arthropathy, cervical Former smoker Fracture of fifth metacarpal bone of left hand Fracture of fourth metacarpal bone of left hand GERD (gastroesophageal reflux disease) (~1995) Hearing loss History of pneumonia HNP (herniated nucleus pulposus), cervical Hyperlipemia (~08/31/12) Hypertension (~12/12/12) Impaired vision Malaria (~1968) Measles (~1952) MRSA (methicillin resistant Staphylococcus aureus) (~1996) Mumps (~1956) Murmur Narcolepsy (~1994) Nephrolithiasis Neuropathy Obesity (BMI 30-39.9) Obstructive sleep apnea Bzveiy-Gqktqe-Moum neutrophil abnormality PTSD (post-traumatic stress disorder) (~1969) Rheumatic fever (~1953) RLS (restless legs syndrome) (~2007) Sacral dysfunction Sinus drainage Sleep apnea (~1994) Syphilis (~1967) TIA (transient ischemic attack) Surgical History Anesthesia H/O rhinoplasty H/O right inguinal hernia repair Hx of nasal septoplasty Hx of tonsillectomy (~1955) Family History Brother Heart disease Diabetes mellitus Father Cancer Mother Mental health problem Grandfather Phlebitis Social History marital status: household members: spouse ( is disabled) occupational status: previously employed Smoking Status: Former smoker alcohol intake: never substance use type: does not use Smoking Status: Former smoker alcohol intake frequency: other Substance Use Type: does not use Exam <Ann Marie Paul PA-C - Last Filed: 09/07/22 18:27> Narrative Exam Narrative: Const General:?cooperative, healthy appearing and comfortable [facility] Head:?normal to inspection Ears:?hearing grossly normal bilaterally Nose:?external nose normal Face and sinus:?normal facial exam and sinuses nontender Mouth:?oral mucosae normal Throat:?posterior oropharynx normal Eyes General:?appearance normal, both eyes and all related structures Neck Neck:?normal visual inspection and no lymphadenopathy noted Resp Effort & Inspection:?normal respiratory effort Auscultation:? Diffuse wheezes on lower lung hernandez. No crackles, rhonchi, rales Cardio Rate:?regular rate Rhythm:?regular rhythm No leg swelling Neuro General:?patient alert, patient awake and patient oriented x3 Initial Vital Signs Initial Vital Signs: Vital Signs Temperature 97.5 F L 09/07/22 13:21 Pulse Rate 80 09/07/22 13:21 Respiratory Rate 20 09/07/22 13:21 Blood Pressure 138/63 09/07/22 13:21 Pulse Oximetry 96 09/07/22 13:21 Oxygen Delivery Method 09/07/22 13:21 <Ayush Becker DO - Last Filed: 09/08/22 11:51> Initial Vital Signs Initial Vital Signs: Vital Signs Temperature 97.5 F L 09/07/22 13:21 Pulse Rate 80 09/07/22 13:21 Respiratory Rate 20 09/07/22 13:21 Blood Pressure 138/63 09/07/22 13:21 Pulse Oximetry 96 09/07/22 13:21 Oxygen Delivery Method 09/07/22 13:21 Course <Ann Marie Paul PA-C - Last Filed: 09/07/22 18:27> Orders Ordered: Discontinued Medications Albuterol (Albuterol Hfa Prepack) 1 box MISC SEEINSTR ONE Stop: 09/07/22 17:33 Last Admin: 09/07/22 18:25 Dose: 1 box Documented By: RB Albuterol/Ipratropium (Albuterol/Ipratropium 3 Ml Ampul) 3 ml INH NOW ONE Stop: 09/07/22 15:38 Last Admin: 09/07/22 16:38 Dose: 3 ml Documented By: YUAN Vital Signs Vital signs: Vital Signs - 8 hr 09/07/22 13:21 09/07/22 14:57 09/07/22 15:00 Temperature 97.5 F L Pulse Rate 80 76 Respiratory Rate 20 21 Blood Pressure 138/63 139/70 Pulse Oximetry 96 96 Oxygen Delivery Method Room Air Oxygen Flow Rate Fraction of Inspired Oxygen 09/07/22 15:00 09/07/22 16:39 09/07/22 15:30 Temperature Pulse Rate 75 72 70 Respiratory Rate 23 18 24 Blood Pressure Pulse Oximetry 95 97 95 Oxygen Delivery Method Room Air Oxygen Flow Rate 0 Fraction of Inspired Oxygen 21 09/07/22 15:31 09/07/22 15:31 09/07/22 16:00 Temperature Pulse Rate 74 Respiratory Rate Blood Pressure 115/63 116/62 Pulse Oximetry 95 Oxygen Delivery Method Oxygen Flow Rate Fraction of Inspired Oxygen 09/07/22 16:00 09/07/22 16:30 09/07/22 16:30 Temperature Pulse Rate 69 69 Respiratory Rate 23 13 Blood Pressure 116/62 Pulse Oximetry 94 95 Oxygen Delivery Method Oxygen Flow Rate Fraction of Inspired Oxygen 09/07/22 17:00 09/07/22 17:00 Temperature Pulse Rate 70 Respiratory Rate 18 Blood Pressure 121/56 L Pulse Oximetry 94 Oxygen Delivery Method Oxygen Flow Rate Fraction of Inspired Oxygen <Ayush Becker DO - Last Filed: 09/08/22 11:51> Orders Ordered: Discontinued Medications Albuterol (Albuterol Hfa Prepack) 1 box MISC SEEINSTR ONE Stop: 09/07/22 17:33 Last Admin: 09/07/22 18:25 Dose: 1 box Documented By: DILAN Albuterol/Ipratropium (Albuterol/Ipratropium 3 Ml Ampul) 3 ml INH NOW ONE Stop: 09/07/22 15:38 Last Admin: 09/07/22 16:38 Dose: 3 ml Documented By: YUAN Vital Signs Vital signs: Vital Signs - 8 hr 09/07/22 13:21 09/07/22 14:57 09/07/22 15:00 Temperature 97.5 F L Pulse Rate 80 76 Respiratory Rate 20 21 Blood Pressure 138/63 139/70 Pulse Oximetry 96 96 Oxygen Delivery Method Room Air Oxygen Flow Rate Fraction of Inspired Oxygen 09/07/22 15:00 09/07/22 16:39 09/07/22 15:30 Temperature Pulse Rate 75 72 70 Respiratory Rate 23 18 24 Blood Pressure Pulse Oximetry 95 97 95 Oxygen Delivery Method Room Air Oxygen Flow Rate 0 Fraction of Inspired Oxygen 21 09/07/22 15:31 09/07/22 15:31 09/07/22 16:00 Temperature Pulse Rate 74 Respiratory Rate Blood Pressure 115/63 116/62 Pulse Oximetry 95 Oxygen Delivery Method Oxygen Flow Rate Fraction of Inspired Oxygen 09/07/22 16:00 09/07/22 16:30 09/07/22 16:30 Temperature Pulse Rate 69 69 Respiratory Rate 23 13 Blood Pressure 116/62 Pulse Oximetry 94 95 Oxygen Delivery Method Oxygen Flow Rate Fraction of Inspired Oxygen 09/07/22 17:00 09/07/22 17:00 Temperature Pulse Rate 70 Respiratory Rate 18 Blood Pressure 121/56 L Pulse Oximetry 94 Oxygen Delivery Method Oxygen Flow Rate Fraction of Inspired Oxygen MDM - URI/Sore Throat <Ann Marie Paul PA-C - Last Filed: 09/07/22 18:27> Lab Data Result diagrams: 09/07/22 13:30 09/07/22 13:30 Labs: Lab Results 09/07/22 09/07/22 09/07/22 Range/Units 13:30 13:30 13:30 WBC 9.2 (4.5-11.0) X10^3/uL RBC 4.69 (4.5-5.9) X10^6/uL Hgb 14.2 (13.5-17.5) g/dL Hct 42.2 (41-53) % MCV 90.0 (80-100) fL MCH 30.4 (26-34) PG MCHC 33.7 (30-36) % RDW 13.5 (11.6-14.8) % Plt Count 195 (150-400) X10^3/uL Neut % (Auto) 71.5 (50-75) % Lymph % (Auto) 14.2 L (25-40) % Grainger % (Auto) 10.5 (3-14) % Eos % (Auto) 3.2 (2-4) % Baso % (Auto) 0.6 (0-2) % Neut # (Auto) 6600 (4821-8713) /uL Lymph # (Auto) 1300 (2024-9010) /uL Grainger # (Auto) 1000 H (0-900) /uL Eos # (Auto) 300 (0-450) /uL Baso # (Auto) 100 (0-100) /uL PT 12.7 (10.1-12.7) SECONDS INR 1.1 (0.9-1.3) Sodium 138 (137-145) mmol/L Potassium 3.6 (3.4-5.1) mmol/L Chloride 96 L (98-107) mmol/L Carbon Dioxide 31 (22-32) mmol/L BUN 24 H (9-20) mg/dL Creatinine 1.03 (0.66-1.25) mg/dL Estimated GFR > 60 (>60) mL/min BUN/Creatinine Ratio 23.3 H (6-22) Glucose 129 H (80-110) mg/dL Lactate (0.7-2.1) mmol/L Calcium 9.2 (8.4-10.2) mg/dL Total Bilirubin 0.3 (0.2-1.3) mg/dL AST 24 (17-59) IU/L ALT 22 (<50) IU/L Alkaline Phosphatase 86 (38-126) U/L Troponin I < 0.012 (0.01-0.034) ng/mL NT-Pro-B Natriuret Pep 23 (<125) pg/mL Total Protein 7.7 (6.3-8.2) g/dL SARS-CoV-2 (PCR) (Negative) Influenza A (RT-PCR) (NEGATIVE) Influenza B (RT-PCR) (NEGATIVE) RSV (PCR) (Negative) 09/07/22 09/07/22 Range/Units 13:30 13:30 WBC (4.5-11.0) X10^3/uL RBC (4.5-5.9) X10^6/uL Hgb (13.5-17.5) g/dL Hct (41-53) % MCV (80-100) fL MCH (26-34) PG MCHC (30-36) % RDW (11.6-14.8) % Plt Count (150-400) X10^3/uL Neut % (Auto) (50-75) % Lymph % (Auto) (25-40) % Grainger % (Auto) (3-14) % Eos % (Auto) (2-4) % Baso % (Auto) (0-2) % Neut # (Auto) (0783-7315) /uL Lymph # (Auto) (4177-7084) /uL Grainger # (Auto) (0-900) /uL Eos # (Auto) (0-450) /uL Baso # (Auto) (0-100) /uL PT (10.1-12.7) SECONDS INR (0.9-1.3) Sodium (137-145) mmol/L Potassium (3.4-5.1) mmol/L Chloride (98-107) mmol/L Carbon Dioxide (22-32) mmol/L BUN (9-20) mg/dL Creatinine (0.66-1.25) mg/dL Estimated GFR (>60) mL/min BUN/Creatinine Ratio (6-22) Glucose (80-110) mg/dL Lactate 1.2 (0.7-2.1) mmol/L Calcium (8.4-10.2) mg/dL Total Bilirubin (0.2-1.3) mg/dL AST (17-59) IU/L ALT (<50) IU/L Alkaline Phosphatase (38-126) U/L Troponin I (0.01-0.034) ng/mL NT-Pro-B Natriuret Pep (<125) pg/mL Total Protein (6.3-8.2) g/dL SARS-CoV-2 (PCR) Negative (Negative) Influenza A (RT-PCR) Flu a negative (NEGATIVE) Influenza B (RT-PCR) Flu b negative (NEGATIVE) RSV (PCR) Negative (Negative) MDM Narrative Medical decision making narrative: 72-year-old male with past medical history COPD, hypertension, obstructive sleep apnea, narcolepsy presents to the ED with 4 days of dry cough, chest tightness, fatigue. Concern for viral URI versus COPD exacerbation versus CHF versus pneumonia versus ACS versus other. Will obtain EKG, chest x-ray, labs, troponin, BNP, respiratory panel. Will reassess. Diffuse wheezes to lower lung hernandez on exam. RT consult to eval and treat. Will treat with ipratropium and albuterol. Chest x-ray shows mild pulmonary edema. Patient was negative for COVID, influenza, RSV. Labs within normal limits. Patient's symptoms significantly with the breathing treatment. Patient's symptoms likely due to acute bronchitis after his COVID infection. Will send patient home with an albuterol inhaler to use for the next few days. ED return precautions were discussed with patient. Patient verbalized understanding. ? Medical records reviewed:??yes ? Imaging studies independently reviewed:yes ? Disposition: see below, along with detailed discharge instructions that have been reviewed with patient as well as indications for ED re-evaluation and additional outpatient follow up <Ayush Becker DO - Last Filed: 09/08/22 11:51> Lab Data Labs: Lab Results 09/07/22 09/07/22 09/07/22 Range/Units 13:30 13:30 13:30 WBC 9.2 (4.5-11.0) X10^3/uL RBC 4.69 (4.5-5.9) X10^6/uL Hgb 14.2 (13.5-17.5) g/dL Hct 42.2 (41-53) % MCV 90.0 (80-100) fL MCH 30.4 (26-34) PG MCHC 33.7 (30-36) % RDW 13.5 (11.6-14.8) % Plt Count 195 (150-400) X10^3/uL Neut % (Auto) 71.5 (50-75) % Lymph % (Auto) 14.2 L (25-40) % Grainger % (Auto) 10.5 (3-14) % Eos % (Auto) 3.2 (2-4) % Baso % (Auto) 0.6 (0-2) % Neut # (Auto) 6600 (9714-0498) /uL Lymph # (Auto) 1300 (6375-9427) /uL Grainger # (Auto) 1000 H (0-900) /uL Eos # (Auto) 300 (0-450) /uL Baso # (Auto) 100 (0-100) /uL PT 12.7 (10.1-12.7) SECONDS INR 1.1 (0.9-1.3) Sodium 138 (137-145) mmol/L Potassium 3.6 (3.4-5.1) mmol/L Chloride 96 L (98-107) mmol/L Carbon Dioxide 31 (22-32) mmol/L BUN 24 H (9-20) mg/dL Creatinine 1.03 (0.66-1.25) mg/dL Estimated GFR > 60 (>60) mL/min BUN/Creatinine Ratio 23.3 H (6-22) Glucose 129 H (80-110) mg/dL Lactate (0.7-2.1) mmol/L Calcium 9.2 (8.4-10.2) mg/dL Total Bilirubin 0.3 (0.2-1.3) mg/dL AST 24 (17-59) IU/L ALT 22 (<50) IU/L Alkaline Phosphatase 86 (38-126) U/L Troponin I < 0.012 (0.01-0.034) ng/mL NT-Pro-B Natriuret Pep 23 (<125) pg/mL Total Protein 7.7 (6.3-8.2) g/dL SARS-CoV-2 (PCR) (Negative) Influenza A (RT-PCR) (NEGATIVE) Influenza B (RT-PCR) (NEGATIVE) RSV (PCR) (Negative) 09/07/22 09/07/22 Range/Units 13:30 13:30 WBC (4.5-11.0) X10^3/uL RBC (4.5-5.9) X10^6/uL Hgb (13.5-17.5) g/dL Hct (41-53) % MCV (80-100) fL MCH (26-34) PG MCHC (30-36) % RDW (11.6-14.8) % Plt Count (150-400) X10^3/uL Neut % (Auto) (50-75) % Lymph % (Auto) (25-40) % Grainger % (Auto) (3-14) % Eos % (Auto) (2-4) % Baso % (Auto) (0-2) % Neut # (Auto) (3750-3582) /uL Lymph # (Auto) (1243-9427) /uL Grainger # (Auto) (0-900) /uL Eos # (Auto) (0-450) /uL Baso # (Auto) (0-100) /uL PT (10.1-12.7) SECONDS INR (0.9-1.3) Sodium (137-145) mmol/L Potassium (3.4-5.1) mmol/L Chloride (98-107) mmol/L Carbon Dioxide (22-32) mmol/L BUN (9-20) mg/dL Creatinine (0.66-1.25) mg/dL Estimated GFR (>60) mL/min BUN/Creatinine Ratio (6-22) Glucose (80-110) mg/dL Lactate 1.2 (0.7-2.1) mmol/L Calcium (8.4-10.2) mg/dL Total Bilirubin (0.2-1.3) mg/dL AST (17-59) IU/L ALT (<50) IU/L Alkaline Phosphatase (38-126) U/L Troponin I (0.01-0.034) ng/mL NT-Pro-B Natriuret Pep (<125) pg/mL Total Protein (6.3-8.2) g/dL SARS-CoV-2 (PCR) Negative (Negative) Influenza A (RT-PCR) Flu a negative (NEGATIVE) Influenza B (RT-PCR) Flu b negative (NEGATIVE) RSV (PCR) Negative (Negative) Discharge Plan Departure Patient Disposition: Home Clinical Impression: Upper respiratory infection Instructions: Acute Bronchitis, DI for Viral Upper Respiratory Infection -- Adult Activity Restrictions/Additional Instructions: You were evaluated in the ED today for chest tightness with breathing, fatigue, cough. Your labs were normal. You were negative for COVID, influenza, RSV. You were given a albuterol breathing treatment since you were wheezing in the ED, and your symptoms improved significantly. You are being prescribed an albuterol nebulizer to use at home for the next few days. You may also take an urfv-lnk-rrnshij cough syrup such as Delsym. Please continue to stay well hydrated. Please return to the ED if your symptoms worsen, you have chest pain, you have trouble breathing, you develop fever, chills. Prescriptions: No Action epinephrine 0.3 MG/0.3 ML auto-injector 1 dose IM PRN PRN (Reason: Allergic Reaction) Qty: 0 Label Comments: hasn't needed to use lisinopril 20 mg tablet 20 mg PO DAILY Qty: 90 0RF armodafinil 200 mg tablet 200 mg PO DAILY Qty: 21 0RF amlodipine 5 mg tablet 5 mg PO DAILY solriamfetol 150 mg tablet 150 mg PO DAILY trazodone 50 mg Tablet 50 mg PO BEDTIME Label Comments: med list states various doses over the years. omeprazole 20 mg capsule,delayed release(DR/EC) 20 mg PO BID cholecalciferol (vitamin D3) [Vitamin D3] 50 mcg (2,000 unit) capsule 1,000 unit PO DAILY Label Comments: takes at noon pramipexole 0.5 mg Tablet 0.5 mg PO QPM rosuvastatin 5 mg Tablet 5 mg PO DAILY chlorthalidone 25 mg Tablet 25 mg PO DAILY baclofen 5 mg Tablet 5 mg PO DAILY Referrals: Cliff Prasad MD [Primary Care Provider] - Stand Alone Forms: Patient Portal/API <Ayush Becker DO - Last Filed: 09/08/22 11:51> Cosign ED Attending Yulissaature Attestation: I was immediately available in the department for consultation. This documentation has been reviewed and I agree with assessment and plan. Supervised by Ayush Becker, DO
[2022-09-07] MEDS: ALBUTEROL/IPRATROPIUM 3 ML AMPUL INH (16:38)
[2022-09-07] MEDS: ALBUTEROL HFA PREPACK 1 BOX MISC (18:25)
[2022-09-10 16:11] LABS: Albumin 4.2 g/dL (3.5-5.0); Albumin Globulin Ratio 1.2 (1.0-2.8); Globulin 3.5 g/dL (1.7-4.1)
== END 2022-09-07 18:31 | disposition home or self-care (01) ==
PROVIDERS: Emergency Medicine; Emergency Provider Student in an Organized Health Care Education/Training Program; PCP Student in an Organized Health Care Education/Training Program
DX: J06.9 Acute upper respiratory infection, unspecified (principal); R07.9 Chest pain, unspecified; Z20.822 Contact with and (suspected) exposure to COVID-19
CPT/HCPCS: 0241U; 36415; 71046; 80053; 83605; 83880; 84484; 85025; 85610; 93005; 94640; 99283; 99284

== ENCOUNTER 2025-03-09 11:34 | Emergency (ER) | payer OTHER, SELFPAY ==
[2025-03-09] VITALS (11 sets, daily range): BP systolic 115–148; BP diastolic 59–81; PULSE 59–70; RESP 14–24; TEMP 36.6; O2SAT 94–98; BMI 32.3
--- NOTE | 2025-03-09 11:52 | EKG_ITS ---
[address] [id number] Test Date: 2025-03-09 Pat Name: Sandeep Hopson Department: Room: Gender: Male Final [employer] Dies: JOSEOBEDBRIDGET : 1950 Requested By: Order Number: [id number] Reading MD: Wilner Mariee Measurements Intervals [place] Rate: 65 P: 27 LA: 214 QRS: -6 QRSD: 94 T: 35 QT: 424 QTc: 440 Interpretive Statements Sinus rhythm with 1st degree AV block with premature atrial complexes Electronically Signed On 03-11-2025 8:14:25 PDT by Wilner Mariee
--- NOTE | 2025-03-09 11:52 | DI.RAD.S_ITS ---
PROCEDURE: XR CHEST 1V INDICATIONS: Chest Pain TECHNIQUE: One view of the chest was acquired. COMPARISON: None. FINDINGS: Surgical changes and devices: None. Lungs and pleura: Lungs are clear. No pleural effusions or pneumothorax. Mediastinum: Mediastinal contours appear normal. Heart size is normal. Bones and chest wall: No suspicious bony lesions. Overlying soft tissues appear unremarkable. IMPRESSION: No acute cardiopulmonary abnormality is seen. Dictated by: Xochitl Gonzalez M.D. on 03/09/2025 at 11:14 Approved by: Xochitl Gonzalez M.D. on 03/09/2025 at 11:14
--- NOTE | 2025-03-09 12:00 | DI.CT.S_ITS ---
PROCEDURE: CT ANGIO CHEST ABDOMEN PELVIS INDICATIONS: aortic dissection rule out TECHNIQUE: Precontrast 5 mm thick sections acquired from the lung apices to the iliac crests. After the administration of intravenous contrast, 2.5 mm thick sections again acquired from the lung apices to the iliac crests. Maximum intensity projection (MIP) oblique sagittal and coronal reformats were then acquired. For radiation dose reduction, the following was used: automated exposure control. COMPARISON: None. FINDINGS: Image quality: Diagnostic. AORTA: No aortic aneurysm. No acute aortic syndrome. Scattered atherosclerosis. CHEST: Lower Neck: No enlarged lymph nodes. Thyroid: No thyroid nodules which require sonographic evaluation. Axillae: No enlarged lymph nodes. Chest Wall: Unremarkable. Lungs and Pleura: No pneumothorax or pleural effusions. No consolidation or suspicious nodules. Heart: Heart size is normal. No pericardial effusion. Thoracic Vessels: Pulmonary arteries demonstrate normal size. Mediastinum and Terra: No enlarged lymph nodes. Esophagus: No wall thickening. No hiatal hernia. ABDOMEN: Liver: Diffusely hypoattenuating without solid mass. Gallbladder: No radiopaque gallstones or wall thickening. Biliary ducts: No biliary dilation. Pancreas: No ductal dilation. Spleen: Size is within normal limits. Adrenal Glands: No adrenal nodules. Kidneys and Ureters: No hydronephrosis. No solid mass. No complex renal cystic lesion which requires follow up. Stomach and Bowel: Normal colonic caliber, without significant wall thickening. There are scattered colonic diverticula without associated inflammation. The appendix is normal. Peritoneum: No abnormal intraperitoneal fluid. No free air. Ventral Wall: No hernia. Abdominal Nodes: No retroperitoneal or mesenteric adenopathy by size criteria. Vessels: Inferior vena cava is normal in size. PELVIS: Pelvic Organs: Unremarkable. Bladder: Unremarkable. Pelvic Nodes: No enlarged lymph nodes. Miscellaneous: No inguinal hernias are seen. Bones: Unremarkable. IMPRESSION: No acute aortic abnormality. Hepatic steatosis. Dictated by: Xochitl Gonzalez M.D. on 03/09/2025 at 11:45 Approved by: Xochitl Gonzalez M.D. on 03/09/2025 at 11:53
[2025-03-09 12:03] LABS: Add Manual Diff / Slide Review NO; Hematocrit 46.0 % (41-53); Hemoglobin 15.4 g/dL (13.5-17.5); Lymphocytes Absolute Auto 1000 /uL (1100-4500); Mean Corpuscular HGB Conc 33.5 % (30-36); Mean Corpuscular Hemoglobin 30.7 PG (26-34); Mean Corpuscular Volume 91.7 fL (80-100); Platelet Count 140 X10^3/uL (150-400)
[2025-03-09 12:14] LABS: Alanine Aminotransferase 33 IU/L (<50); Albumin 4.4 g/dL (3.5-5.0); Albumin Globulin Ratio 1.6 (1.0-2.8); Alkaline Phosphatase 61 U/L (38-126); Blood Urea Nitrogen 21 mg/dL (9-20); Calcium 9.2 mg/dL (8.4-10.2); Carbon Dioxide 27 mmol/L (22-32); Chloride 100 mmol/L (98-107); Creatine Kinase 131 U/L (55-170); Estimated Glomerular Filt Rate > 60 mL/min (>60); Globulin 2.8 g/dL (1.7-4.1); Glucose 152 mg/dL (70-99); HEMOLYSIS 16 (0-50); Lipase 43 U/L (23-300); Magnesium 1.8 mg/dL (1.6-2.3); Potassium 3.3 mmol/L (3.4-5.1); Sodium 137 mmol/L (137-145); Total Protein 7.2 g/dL (6.3-8.2)
[2025-03-09 12:22] LABS: INR 1.0 (0.9-1.3); Prothrombin Time 11.2 SECONDS (9.4-12.5)
[2025-03-09 12:24] LABS: PTT Partial Thromboplastin Tim 31 SECONDS (25.1-36.5)
--- NOTE | 2025-03-09 12:25 | ED.BACK ---
HPI - Back Pain/Injury General Chief Complaint: Back Pain/Injury Stated Complaint: muscle fatigue, headache, pain between shoulders Time Seen by Provider: 03/09/25 11:39 Source: patient History of Present Illness HPI Narrative: 74-year-old male with a history of hypertension presents with upper mid back pain that is worsening along with some tremors. Patient denies shortness of breath or any other symptoms. Related Data Home Medications ?Medication ?Instructions ?Recorded ?Confirmed cholecalciferol (vitamin D3) 50 1,000 unit PO DAILY 02/27/20 12/04/24 mcg (2,000 unit) capsule (Vitamin D3) solriamfetol 150 mg tablet 150 mg PO DAILY 05/11/21 12/04/24 chlorthalidone 25 mg tablet 25 mg PO DAILY 09/07/22 12/04/24 amlodipine 10 mg tablet 10 mg PO DAILY 12/04/24 12/04/24 clobetasol 0.05 % topical cream 1 applic topical BID PRN 12/04/24 12/04/24 epinephrine 0.3 mg/0.3 mL 0.3 mg IM ONCE PRN Bee stings 12/04/24 12/04/24 injection, auto-injector (EpiPen) ferrous sulfate 325 mg (65 mg 325 mg PO 2XW Iron deficiency 12/04/24 12/04/24 iron) tablet (Iron (ferrous sulfate)) methocarbamol 500 mg tablet 250 mg PO DAILY 12/04/24 12/04/24 omeprazole 20 mg capsule,delayed 20 mg PO DAILY 12/04/24 12/04/24 release pitolisant 35 mg PO DAILY 12/04/24 12/04/24 rosuvastatin 5 mg tablet 2.5 mg PO Q OTHER DAY 12/04/24 12/04/24 sodium, calcium, magnesium, PO BEDTIME Narcolepsy/cataplexy 12/04/24 12/04/24 potassium oxybates 0.5 gram/mL oral soln (Xywav) Allergies Allergy/AdvReac Type Severity Reaction Status Date / Time doxycycline (DOXYCYCLINE) Allergy Severe Anaphylaxis Verified 03/09/25 11:45 guaifenesin (GUAIFENESIN) Allergy Severe Throat Verified 03/09/25 11:45 swelling methylphenidate Allergy Severe Suicidal Verified 03/09/25 11:45 (METHYLPHENIDATE) ideation pemoline (From Cylert) Allergy Severe Swelling, Verified 03/09/25 11:45 suicidal ideation Penicillins (PENICILLINS) Allergy Severe Stiffens Verified 03/09/25 11:45 like a board and fell flat on his face pseudoephedrine Allergy Severe Throat Verified 03/09/25 11:45 (PSEUDOEPHEDRINE) swelling soy (SOY) Allergy Severe Anaphylaxis, Verified 03/09/25 11:45 diarrhea, swelling venom-honey bee (BEE VENOM Allergy Severe Anaphylaxis Verified 03/09/25 11:45 (HONEY BEE)) pneumococcal vaccine (From Allergy Mild Localized Verified 03/09/25 11:45 PNEUMOVAX 23) swelling, redness prazosin (PRAZOSIN) Allergy Unknown Unknown Verified 03/09/25 11:45 adhesive (ADHESIVE) AdvReac Intermediate Pulled Verified 03/09/25 11:45 skin off with removal gluten (GLUTEN) AdvReac Intermediate Celiac Verified 03/09/25 11:45 Disease atorvastatin AdvReac Mild Muscle Pain Verified 03/09/25 11:45 lisinopril AdvReac Mild angioedema Verified 03/09/25 11:45 lactose (LACTOSE) AdvReac Unknown GI upset, Verified 03/09/25 11:45 diarrhea Lettuce AdvReac Severe Anaphylactic Uncoded 03/09/25 11:45 Shock Review of Systems Review of Systems ROS Unobtainable: All systems reviewed & are unremarkable except as noted in HPI and below Patient History Medical History (Updated 03/09/25 @ 14:41 by Nickolas Fish MD) COVID-19 Left knee pain Cerumen impaction 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 Syphilis (~1967) Rheumatic fever (~1953) Mumps (~1956) MRSA (methicillin resistant Staphylococcus aureus) (~1996) Measles (~1952) Malaria (~1968) Chicken pox (~1955) Facet arthropathy, cervical Cervical disc disorder with radiculopathy, high cervical region HNP (herniated nucleus pulposus), cervical Obstructive sleep apnea Obesity (BMI 30-39.9) Sacral dysfunction Impaired vision Depression (~1994) TIA (transient ischemic attack) Diverticulitis (~1998) Diverticulosis Arthritis Sinus drainage History of pneumonia Hypertension (~12/12/12) Neuropathy Former smoker Pgnwne-Spialb-Njny neutrophil abnormality RLS (restless legs syndrome) (~2007) GERD (gastroesophageal reflux disease) (~1995) PTSD (post-traumatic stress disorder) (~1969) Hyperlipemia (~08/31/12) Sleep apnea (~1994) Essential hypertension Hearing loss Allergic rhinitis Chronic sinusitis Narcolepsy (~1994) Celiac disease Abdominal aortic aneurysm (~05/28/14) Anxiety (~1994) Murmur Nephrolithiasis Cervical disc disorder Fracture of fifth metacarpal bone of left hand Fracture of fourth metacarpal bone of left hand Surgical History Anesthesia H/O right inguinal hernia repair H/O rhinoplasty Hx of nasal septoplasty Hx of tonsillectomy (~1955) Family History Brother Heart disease Diabetes mellitus Father Cancer Mother Mental health problem Grandfather Phlebitis Social History marital status: household members: spouse ( is disabled) occupational status: previously employed alcohol intake: never substance use type: does not use Smoking Status: Never smoker alcohol intake frequency: other Exam Narrative Exam Narrative: General: Patient appears to be in no acute distress, acting appropriately Head: normocephalic, atraumatic, HEENT: Pupils equal round reactive, eyes tracking well, neck supple, no JVD Heart: regular rate and rhythm, no murmurs, rubs, or gallops heard Lungs: clear to auscultation, no adventitious sounds Abdomen: soft , nontender, nondistended, positive bowel sounds Neurological: no focal neurological signs, moving all extremities well, alert and oriented x3, Psych: good judgment ,good insight, mood is normal. Initial Vital Signs Initial Vital Signs: Vital Signs Pulse Rate 70 03/09/25 11:41 Pulse Oximetry 97 03/09/25 11:41 Course Course Course Narrative: CTA of the chest abdomen and pelvis showed no acute abnormalities. Patient's symptoms improved in his back as well. Orders Ordered: ED Orders 03/09/25 11:52 XR chest 1V Stat EKG-12 Lead Stat 03/09/25 11:56 Complete Blood Count AUTO DIFF Stat Comprehensive Metabolic Panel Stat Lipase Stat Magnesium Stat NT-proBNP (BNP-Adult 18+) Stat PTT Partial Thromboplastin Bebo Stat Prothrombin Time INR Stat Troponin & CK Cardiac Panel Stat 03/09/25 12:00 CT angio chest abdomen pelvis Stat Discontinued Medications Aspirin (Aspirin 81 Mg Chew Tab) 324 mg PO NOW ONE Stop: 03/09/25 11:53 Reevaluation(s) Reevaluation #1: Upon re-evaluation patient is has very minimal symptoms of tremors but no other cardiovascular symptoms. Vital Signs Vital signs: Vital Signs - 8 hr 03/09/25 11:41 03/09/25 11:42 03/09/25 11:42 Temperature Pulse Rate 70 64 Respiratory Rate Blood Pressure 147/81 H Pulse Oximetry 97 97 Oxygen Delivery Method Room Air 03/09/25 11:47 Temperature 97.8 F Pulse Rate 64 Respiratory Rate 17 Blood Pressure 147/81 H Pulse Oximetry 98 Oxygen Delivery Method Room Air MDM - Back Pain/Injury Differential Diagnosis Differential diagnosis: Likely thoracic back pain, AAA and other (coronary artery disease ) Lab Data 03/09/25 11:56 03/09/25 11:56 Labs: Lab Results 03/09/25 Range/Units 11:56 WBC 4.8 (4.5-11.0) X10^3/uL RBC 5.02 (4.5-5.9) X10^6/uL Hgb 15.4 (13.5-17.5) g/dL Hct 46.0 (41-53) % MCV 91.7 (80-100) fL MCH 30.7 (26-34) PG MCHC 33.5 (30-36) % RDW 13.3 (11.6-14.8) % Plt Count 140 L (150-400) X10^3/uL Neut % (Auto) 65.0 (50-75) % Lymph % (Auto) 20.0 L (25-40) % Sequoyah % (Auto) 11.2 (3-14) % Eos % (Auto) 3.0 (2-4) % Baso % (Auto) 0.8 (0-2) % Neut # (Auto) 3100 (7178-1318) /uL Lymph # (Auto) 1000 L (2812-0354) /uL Sequoyah # (Auto) 500 (0-900) /uL Eos # (Auto) 100 (0-450) /uL Baso # (Auto) 0 (0-100) /uL Sodium 137 (137-145) mmol/L Potassium 3.3 L (3.4-5.1) mmol/L Chloride 100 (98-107) mmol/L Carbon Dioxide 27 (22-32) mmol/L BUN 21 H (9-20) mg/dL Creatinine 1.00 (0.66-1.25) mg/dL Estimated GFR > 60 (>60) mL/min BUN/Creatinine Ratio 21.0 (6-22) Glucose 152 H (70-99) mg/dL Calcium 9.2 (8.4-10.2) mg/dL Magnesium 1.8 (1.6-2.3) mg/dL Total Bilirubin 0.6 (0.2-1.3) mg/dL AST 34 (17-59) IU/L ALT 33 (<50) IU/L Alkaline Phosphatase 61 (38-126) U/L Total Creatine Kinase 131 (55-170) U/L Total Protein 7.2 (6.3-8.2) g/dL Albumin 4.4 (3.5-5.0) g/dL Globulin 2.8 (1.7-4.1) g/dL Albumin/Globulin Ratio 1.6 (1.0-2.8) Lipase 43 (23-300) U/L ECG Data Interpretation: EKG shows POD normal sinus rhythm, normal axis rate of 65 beats per minute, first-degree AV block with premature PACs. No STT wave changes. Previous EKG show no changes. [facility] Narrative Medical decision making narrative: Patient's symptoms improved, CTA of the chest abdomen and pelvis did not show any acute abnormalities. No aortic issues. Patient's labs all within normal limits with the exception of his potassium being at 3.3. Patient given p.o. KCl 40 mEq and will follow-up to recheck his potassium as an outpatient. Discharge Plan Departure Patient Disposition: Home Clinical Impression: Acute hypokalemia Acute back pain Qualifiers: Back pain location: thoracic back pain Back pain laterality: midline Qualified Code(s): M54.6 - Pain in thoracic spine Instructions: DI for Hypokalemia Activity Restrictions/Additional Instructions: Follow-up with PCP in 1 week and recheck potassium level. Prescriptions: No Action amlodipine 10 mg tablet 10 mg PO DAILY epinephrine [EpiPen] 0.3 mg/0.3 mL auto-injector 0.3 mg IM ONCE PRN (Reason: Bee stings) Xywav 0.5 gram/mL solution PO BEDTIME clobetasol 0.05 % cream 1 applic topical BID PRN ferrous sulfate [Iron (ferrous sulfate)] 325 mg (65 mg iron) tablet 325 mg PO 2XW pitolisant 35 mg PO DAILY methocarbamol 500 mg tablet 250 mg PO DAILY solriamfetol 150 mg tablet 150 mg PO DAILY cholecalciferol (vitamin D3) [Vitamin D3] 50 mcg (2,000 unit) capsule 1,000 unit PO DAILY Patient Comments: takes at noon omeprazole 20 mg capsule,delayed release(DR/EC) 20 mg PO DAILY chlorthalidone 25 mg Tablet 25 mg PO DAILY rosuvastatin 5 mg tablet 2.5 mg PO Q OTHER DAY Referrals: Lauren Armstrong DO [Primary Care Provider, Family Practice] Stand Alone Forms: Patient Portal/API
[2025-03-09 12:26] LABS: NT-proBNP (BNP-Adult 18+) 29 pg/mL (<450); Troponin I < 0.012 ng/mL (0.01-0.034)
[2025-03-09] MEDS: POTASSIUM CHLORIDE 20 MEQ/15 ML UDC 40 MEQ PO (14:43)
== END 2025-03-09 15:00 | disposition home or self-care (01) ==
PROVIDERS: Emergency Provider Family Medicine; PCP Family Medicine
DX: E87.6 Hypokalemia (principal); M54.6 Pain in thoracic spine; R25.1 Tremor, unspecified
CPT/HCPCS: 36415; 71045; 71275; 74174; 80053; 82550; 83690; 83735; 83880; 84484; 85025; 85610; 85730; 93005; 99284; Q9967